=== PATIENT | female | born 1965 | race Caucasian/White ===

== ENCOUNTER 2017-07-14 10:23 | Emergency (ER) | payer OTHER, SELFPAY ==
[2017-07-14 11:06] VITALS: BP 138/81; PULSE 92; RESP 20; TEMP 36.8; O2SAT 97; BMI 23.7
--- NOTE | 2017-07-14 11:13 | HMH.EDUTC ---
[facility] [place] Disposition Clinical Impression: Spasm of muscle of lower back Disposition: Home, Self-Care Condition on Discharge: Good Instructions: DI for Low Back Pain Additional Instructions: Take muscles relaxers cautiously with toddler at home Prescriptions: Cyclobenzaprine HCl [Cyclobenzaprine 10mg Tab] 10 mg PO TID PRN 10 Days #30 tab PRN Reason: Muscle Spasm Lidocaine [Lidoderm 5% transdermal patch] 1 each TP Q24H 30 Days #30 adh..patch Referrals: Bruna Camacho APRN [Primary Care Provider] - Time of Disposition: : Medical Decision Making - Medical Records Medical records reviewed: Yes: I reviewed the patient's medical records. Vital Signs: 07/14/17 11:06 Temperature 98.2 F Temperature Source Temporal Artery Scan Pulse Rate [Left Brachial] 92 H Respiratory Rate 20 Blood Pressure [Left Arm] 138/81 Blood Pressure Mean [Left Arm] 100 Blood Pressure Source [Left Arm] Automatic Cuff Blood Pressure Position [Left Arm] Sitting 02 Sat by Pulse Oximetry 97 Oxygen Delivery Method Room Air Orders (Tests/Meds): ED MEDICATIONS Discontinued Medications Generic Name Dose Route Start Last Admin Trade Name Freq PRN Reason Stop Dose Admin Ketorolac Tromethamine 60 mg 07/14/17 11:10 07/14/17 11:12 Toradol 60mg/2ml Vial IM 07/14/17 11:11 60 mg ONCE ONE Administration Methylprednisolone Acetate 80 mg 07/14/17 11:10 07/14/17 11:12 Depo-Medrol 40mg/Ml Vial IM 07/14/17 11:11 80 mg ONCE ONE Administration - Jose Inquiry Pt receiving controlled substance: No [facility] [place] HPI - General Stated complaint: BACK PAIN Time Seen by Provider: 07/14/17 11:10 Mode of Arrival: Ambulatory Source of Information: Patient Limitations: No Limitations Description of Symptoms (Recalled from Triage Doc. by RN): BACK PAIN X2 DAYS. PT STATES THAT SHE NEEDS TO BE ABLE TO CARE FOR HER GRANDCHILD AND STEROIDS ARE ALL THAT HELP HER WHEN HER BACK PAIN FLARES UP HEENT Symptoms (Recalled from RN notes): No Resp Symptoms (Recalled from RN notes): No Skin Symptoms (Recalled from RN notes): No MS Symptoms (Recalled from RN notes): Yes (BACK PAIN) Functional Status (Recalled from RN notes): N/A - History of Present Illness Provider Complaint: Low back pain X 2 days after lifting a carton of copy paper. Pain across both sides of her low back but does not radiate down either leg. No fall. She has injured her back before and has Diclofenac and Prednisone, but is requesting shots to speed the process as she has custody of her 2 year old granddaughter. Onset (ago): day(s) (2) Location: back Radiation: non-radiation Severity: moderate Quality: aching, sharp Consistency: constant Relieving factors: cold therapy, immobilization, medication, rest Exacerbating factors: movement Associated symptoms: denies other symptoms Treatments prior to arrival: NSAID, cold therapy, heat therapy - Related Data Previous Rx's Medication Instructions Recorded Cyclobenzaprine HCl 10 mg PO TID PRN 10 Days #30 tab 07/14/17 [Cyclobenzaprine 10mg Tab] Lidocaine [Lidoderm 5% transdermal 1 each TP Q24H 30 Days #30 07/14/17 patch] adh..patch Allergies Allergy/AdvReac Type Severity Reaction Status Date / Time No Known Allergies Allergy Verified 07/14/17 11:06 - Worker's Comp Is this a Worker's Comp case?: No [facility] History I have reviewed the patient's past medical history: Yes Medical History: Denies:: Cancer, Diabetes Mellitus Type 1, Diabetes Mellitus Type 2, MRSA Amputation: No Fractures: No - Social History Smoking Status: Current every day smoker Tobacco Type: cigarettes Alcohol Intake: never - Psychiatric History Expresses thoughts of harming self/others: None Suicide Plan Description: No Plan ROS Obtained: Yes All systems reviewed & no additional complaints - Musculoskeletal Musculoskeletal: Reports back pain, Reports muscle aches, Denies numbness, Denies radiating pain into limb Physical Exa
--- NOTE | 2017-07-14 11:16 | ED_ITS ---
[facility] [place] Disposition Clinical Impression: Spasm of muscle of lower back Disposition: Home, Self-Care Condition on Discharge: Good Instructions: DI for Low Back Pain Additional Instructions: Take muscles relaxers cautiously with toddler at home Prescriptions: Cyclobenzaprine HCl [Cyclobenzaprine 10mg Tab] 10 mg PO TID PRN 10 Days #30 tab PRN Reason: Muscle Spasm Lidocaine [Lidoderm 5% transdermal patch] 1 each TP Q24H 30 Days #30 adh..patch Referrals: Bruna Camacho APRN [Primary Care Provider] - Time of Disposition: : Medical Decision Making - Medical Records Medical records reviewed: Yes: I reviewed the patient's medical records. Vital Signs: 07/14/17 11:06 Temperature 98.2 F Temperature Source Temporal Artery Scan Pulse Rate [Left Brachial] 92 H Respiratory Rate 20 Blood Pressure [Left Arm] 138/81 Blood Pressure Mean [Left Arm] 100 Blood Pressure Source [Left Arm] Automatic Cuff Blood Pressure Position [Left Arm] Sitting 02 Sat by Pulse Oximetry 97 Oxygen Delivery Method Room Air Orders (Tests/Meds): ED MEDICATIONS Discontinued Medications Generic Name Dose Route Start Last Admin Trade Name Freq PRN Reason Stop Dose Admin Ketorolac Tromethamine 60 mg 07/14/17 11:10 07/14/17 11:12 Toradol 60mg/2ml Vial IM 07/14/17 11:11 60 mg ONCE ONE Administration Methylprednisolone Acetate 80 mg 07/14/17 11:10 07/14/17 11:12 Depo-Medrol 40mg/Ml Vial IM 07/14/17 11:11 80 mg ONCE ONE Administration - Jose Inquiry Pt receiving controlled substance: No [facility] [place] HPI - General Stated complaint: BACK PAIN Time Seen by Provider: 07/14/17 11:10 Mode of Arrival: Ambulatory Source of Information: Patient Limitations: No Limitations Description of Symptoms (Recalled from Triage Doc. by RN): BACK PAIN X2 DAYS. PT STATES THAT SHE NEEDS TO BE ABLE TO CARE FOR HER GRANDCHILD AND STEROIDS ARE ALL THAT HELP HER WHEN HER BACK PAIN FLARES UP HEENT Symptoms (Recalled from RN notes): No Resp Symptoms (Recalled from RN notes): No Skin Symptoms (Recalled from RN notes): No MS Symptoms (Recalled from RN notes): Yes (BACK PAIN) Functional Status (Recalled from RN notes): N/A - History of Present Illness Provider Complaint: Low back pain X 2 days after lifting a carton of copy paper. Pain across both sides of her low back but does not radiate down either leg. No fall. She has injured her back before and has Diclofenac and Prednisone, but is requesting shots to speed the process as she has custody of her 2 year old granddaughter. Onset (ago): day(s) (2) Location: back Radiation: non-radiation Severity: moderate Quality: aching, sharp Consistency: constant Relieving factors: cold therapy, immobilization, medication, rest Exacerbating factors: movement Associated symptoms: denies other symptoms Treatments prior to arrival: NSAID, cold therapy, heat therapy - Related Data Previous Rx's Medication Instructions Recorded Cyclobenzaprine HCl 10 mg PO TID PRN 10 Days #30 tab 07/14/17 [Cyclobenzaprine 10mg Tab] Lidocaine [Lidoderm 5% transdermal 1 each TP Q24H 30 Days #30 07/14/17 patch] adh..patch Allergies Allergy/AdvReac Type Severity Reaction Status Date / Time No Known Allergies Allergy Verified 07/14/17 11:06
[2017-07-14 11:20] VITALS: BP 138/81; PULSE 92; RESP 20; TEMP 36.8; O2SAT 97
== END 2017-07-14 11:22 | disposition home or self-care (01) ==
PROVIDERS: Emergency Provider Physician Assistant; Family Provider Nurse Practitioner; PCP Nurse Practitioner
DX: M62.830 Muscle spasm of back (principal); F17.210 Nicotine dependence, cigarettes, uncomplicated
CPT/HCPCS: 96372; 99202; J1030

== ENCOUNTER → 2019-04-08 13:50 | Outpatient (CLI) | payer OTHER, SELFPAY ==
--- NOTE | 2019-04-08 13:54 | MM_ITS ---
PROCEDURE: MM DIG SCREENING MAMM BI W/CAD CLINICAL INDICATION: SCREENING There is no personal or family history of breast cancer COMPARISON: DMSB DIG MAMM-SCREEN PATRICIA from 01/10/2016 DMDXUAVR DIG MAMM-DX UNI ADD VIEWS-RT from 01/19/2016 BR US BREAST-RT COMPLETE W/AXILLA from 01/19/2016 TECHNIQUE: Standard CC and MLO images were obtained. R2 CAD reviewed. FINDINGS: Mild to moderate scattered fibroglandular densities are seen in both breasts. There are couple of benign-appearing microcalcifications left breast. There is no suspicious lesion and no suspicious microcalcifications. IMPRESSION: Fibrofatty parenchyma with no suspicious lesions seen BI-RAD Category: 2 Benign Finding(s) FOLLOW-UP: 1YR 1 Year Follow-up (A letter has been sent to the patient regarding results of the study.) Dictated by: Dr. Oleg Salomon MD 04/09/2019 12:[address] Oleg Salomon MD in [place] 04/09/2019 12:16
== END ==
PROVIDERS: PCP Family Medicine; Visit Provider Nurse Practitioner
DX: Z12.31 Encounter for screening mammogram for malignant neoplasm of breast (principal); R00.2 Palpitations; I49.8 Other specified cardiac arrhythmias
CPT/HCPCS: 77067; 93225; 93226

== ENCOUNTER → 2019-04-21 12:43 | Outpatient (CLI) | payer OTHER, SELFPAY ==
--- NOTE | 2019-04-21 | CA_ITS ---
APPROVED REPORT Exam: Exercise Treadmill Technologist: Mary Hernandez Ht: 5 ft 8 in Wt: 149 lbs BSA: 1.80 m2 HR: 79 bpm BP: 144/69 mmHg Indications: Fluttering heart, Palpitations Medical History Medications: Lisinopril,,,,, Mobic,,,,, ADVAIR,,,,, WELLBUTRIN,,,,, Ventolin,,,,, Valium,,,,, Estrodiol,,,,, Methocarbamol,,,,, Stress Test Details Test: Levi HR Resting HR: 88 bpm Max Heart Rate (APMHR): 168 bpm Max HR Achieved: 150 bpm Target HR (85% APMHR): 142 bpm % of APMHR: 89 Recovery HR: 101 bpm BP Resting BP: 144.0/69.0 mmHg Max BP: 196.0/78.0 mmHg Recovery BP: 156.0/61.0 mmHg ECG Clinical Exercise duration: 07:29 min Highest Stage Achieved: Exercise capacity: 10.1 METs Stress ECG Conclusion Resting ECG: Normal sinus rhythm, incomplete right bundle branch block. Patient exercised 7:29 on Levi Protocol. Test stopped due to shortness of air, fatigue. Symptoms: No chest pain. Arrhythmias/Ectopy: Occasional PAC. Rare PVC. ST-T Changes: Normal ST response to exercise. Conclusion: Normal GXT. GXT only (no imaging). Test Summary RECOVERY 02:00 0.0 0.0 118 . 195/ 88 . . REST . . . . . . . Standing REST 14:32 0.0 0.0 88 . 144/ 69 . . Stage 1 01:00 10.0 1.7 100 . . . . Stage 1 02:00 10.0 1.7 115 . . . . Stage 1 03:00 10.0 1.7 119 . 170/ 76 . . Stage 2 01:00 12.0 2.5 130 . . . . Stage 2 02:00 12.0 2.5 135 . . . . Stage 2 03:00 12.0 2.5 142 . 196/ 78 . . Stage 3 01:00 14.0 3.4 150 . . . . Stage 3 . . . . . . . Shortness of Breath Stage 3 01:29 14.0 3.4 150 . . . Stop exercise at 07:29 RECOVERY 01:00 0.0 0.0 133 . 195/ 88 . . RECOVERY 02:00 0.0 0.0 118 . 195/ 88 . . RECOVERY 03:00 0.0 0.0 113 . 176/ 66 . . RECOVERY 04:00 0.0 0.0 102 . 176/ 66 . . RECOVERY 05:00 0.0 0.0 102 . 156/ 61 . . RECOVERY 05:16 0.0 0.0 101 . 156/ 61 . . Electronically signed by : Alfonso Adler, 04/24/2019 16:41:50
--- NOTE | 2019-04-21 13:08 | CA_ITS ---
APPROVED REPORT EXAM: Comprehensive 2D, Doppler, and color-flow Echocardiogram Car Hopper: Lore Melara CRT Ht: 5 ft 8 in Wt: 119lbs BSA: 1.64 BP: 144/69 mmHg Indications: palpitations, fluttering 2D Dimensions LVOT 1.69 cm (M/F) 1.5-2.5 M-Mode Dimensions RVDd 2.45 cm (0.9-2.6) LVDd 4.30 cm (3.5-5.7) LVDs 2.93 cm (3.5-5.7) IVSd 0.97 cm (0.6-1.1) PWd 0.70 cm (0.6-1.1) EF (Teich) 60.30% FS 31.90% EDV (Teich) 83.10 mL ESV (Teich) 33.00 mL LV Diastology E/A Ratio 3.04 Mitral Valve MV A Velocity 89.00 (40-130 cm/s) Left Ventricle Left atrium is normal size, left ventricle is normal size, left ventricular wall thickness is upper limit of the normal, there is preserved left ventricular systolic function, visually estimated ejection fraction 55% with no regional wall motion abnormality, diastolic parameters are within normal range. Right Ventricle Right atrium and right ventricular normal size and contractility. Aortic Valve Aortic valve is grossly normal, there is no aortic stenosis aortic insufficiency. Mitral Valve Mitral valve is grossly normal, there is no mitral stenosis, there is trace mitral regurgitation. Tricuspid Valve Tricuspid valve is grossly normal, there is trace tricuspid regurgitation, tricuspid regurgitation jet velocity is inadequate for calculation of the right ventricular systolic pressure. Pulmonic Valve Pulmonic valve is poorly visualized, however there is pulmonic valve calcification noted, there is increased velocity seen in the pulmonary outflow tract generating a peak instantaneous gradient of 36 mmHg, raising the concerns for presence of moderate pulmonic stenosis, there is mild pulmonic insufficiency. Repeat a study with better Doppler technique is recommended for accurate assessment. Great Vessels Aortic root is normal size. Pericardium No significant pericardial effusion noted. Conclusion 1. Normal left ventricular size, preserved left ventricular systolic function, visually estimated ejection fraction 55% with no regional wall motion abnormality, diastolic parameters are within normal range. 2. Trace mitral and tricuspid regurgitation. 3. Increased velocity seen in the pulmonic outflow tract, with calcification of the pulmonic valve seen. 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 A repeat study with better Doppler technique is recommended for further evaluation and accurate assessment. 4. No significant pericardial effusion noted. Electronically signed by : Asher Egan, 04/22/2019 06:47:33
== END ==
PROVIDERS: PCP Nurse Practitioner; Visit Provider Nurse Practitioner
DX: I49.8 Other specified cardiac arrhythmias (principal); R00.2 Palpitations
CPT/HCPCS: 93017; 93306

== ENCOUNTER → 2020-01-01 11:00 | Outpatient (CLI) | payer OTHER, SELFPAY ==
[2020-01-02 12:27] LABS: HIV Screen 4th Generation wRfx Non Reactive (Non Reactive)
[2020-01-02 13:06] LABS: Rapid Plasma Reagin Ab Titer Non Reactive (NonRea<1:1)
[2020-01-02 13:07] LABS: Hepatitis B Surface Antigen Negative (Negative); Hepatitis C Antibody <0.1 s/co ratio (0.0-0.9)
== END ==
PROVIDERS: Visit Provider Obstetrics & Gynecology
DX: Z72.51 High risk heterosexual behavior (principal)
CPT/HCPCS: 36415; 86592; 86703; 87340; 87380; G0432

== ENCOUNTER → 2020-01-07 14:36 | Outpatient (CLI) | payer OTHER, SELFPAY | PROVIDERS: PCP Nurse Practitioner; Visit Provider Internal Medicine Cardiovascular Disease | DX: R07.9 Chest pain, unspecified (principal); R00.2 Palpitations; I10 Essential (primary) hypertension; J44.9 Chronic obstructive pulmonary disease, unspecified; J45.909 Unspecified asthma, uncomplicated; F17.200 Nicotine dependence, unspecified, uncomplicated | CPT/HCPCS: 93270 ==

== ENCOUNTER → 2020-01-11 07:50 | Outpatient (CLI) | payer OTHER, SELFPAY ==
--- NOTE | 2020-01-11 07:51 | CT_ITS ---
PROCEDURE: CT CHEST WO CON CLINICAL INDICATION: cp/tob use Chest pain, shortness of air COMPARISON: CR CXR CHEST(2 VIEWS-NOT PORTABLE) from 10/30/2015 TECHNIQUE: Axial images obtained with sagittal and coronal reformats. All CT scans at the facility use one or more dose reduction, viz: automated exposure control, ma/kV adjustment per patient size (including targeted exams where dose is matched to indication, i.e. head), or iterative reconstruction technique. FINDINGS: HEART AND MEDIASTINAL STRUCTURES: There are few small mediastinal and hilar lymph nodes. Heart size is normal. No obvious coronary artery calcifications. No mediastinal or hilar mass or adenopathy. LUNGS AND PLEURAL SPACES: There are scattered bilateral noncalcified pulmonary nodules which includes a 10 mm nodule in the right apex with at least 3 other smaller nodules in the right upper lobe one of which contains a central area of lucency suggesting early cavitation. In the left upper lobe there are several noncalcified nodules the largest of which is approximately 8 mm. At least 3 of the small nodules contain a central area of lucency suggesting early cavitation. There are changes of COPD with some mild centrilobular emphysema. No effusions are evident. BONY STRUCTURES: No acute bony abnormalities apparent. UPPER ABDOMEN: Unremarkable. ADDITIONAL FINDINGS: No other significant abnormalities. IMPRESSION: Multiple bilateral upper lobe noncalcified pulmonary nodules some of which contain early cavitation. Differential diagnosis would include inflammatory/infectious process such as septic emboli or metastatic disease. Dictated by: Milton Tan MD 01/12/2020 11:32 Milton Tan MD in [place] 01/12/2020 11:32
== END ==
PROVIDERS: PCP Family Medicine; Visit Provider Internal Medicine Cardiovascular Disease
DX: R07.9 Chest pain, unspecified (principal); R00.2 Palpitations; I10 Essential (primary) hypertension; J44.9 Chronic obstructive pulmonary disease, unspecified; J45.909 Unspecified asthma, uncomplicated; F17.200 Nicotine dependence, unspecified, uncomplicated
CPT/HCPCS: 71250

== ENCOUNTER → 2020-01-15 13:03 | Outpatient (CLI) | payer OTHER, SELFPAY | PROVIDERS: PCP Nurse Practitioner; Visit Provider Internal Medicine Cardiovascular Disease | DX: G47.33 Obstructive sleep apnea (adult) (pediatric) (principal); R07.9 Chest pain, unspecified; R00.2 Palpitations; J45.909 Unspecified asthma, uncomplicated; F17.200 Nicotine dependence, unspecified, uncomplicated | CPT/HCPCS: 95806 ==

== ENCOUNTER → 2020-01-18 11:56 | Outpatient (CLI) | payer OTHER, SELFPAY ==
[2020-01-20 15:28] LABS: Histoplasma Gal'mannan Ag Ur <0.5 (<0.5 ng/mL)
[2020-01-21 10:03] LABS: QuantiFERON-TB Gold Plus Negative (Negative)
[2020-01-21 22:20] LABS: Aspergillus flavus Negative (Neg:<1:1); Aspergillus fumigatus Negative (Neg:<1:1); Aspergillus niger Negative (Neg:<1:1); Blastomyces Antibody Negative (Neg:<1:1)
== END ==
PROVIDERS: Visit Provider Internal Medicine Pulmonary Disease
DX: J84.10 Pulmonary fibrosis, unspecified (principal)
CPT/HCPCS: 36415; 86480; 86606; 86612; 86698; 87070; 87116; 87186; 87205; 87206; 87385

== ENCOUNTER → 2020-02-02 09:44 | Outpatient (CLI) | payer OTHER, SELFPAY ==
[2020-02-02 16:50] LABS: Coronavirus 19 IgG Antibody Negative (Negative); Coronavirus 19 IgM Antibody Negative (Negative)
== END ==
PROVIDERS: Visit Provider Internal Medicine Pulmonary Disease
DX: Z01.818 Encounter for other preprocedural examination (principal); J18.9 Pneumonia, unspecified organism; J98.4 Other disorders of lung; R93.89 Abnormal findings on diagnostic imaging of other specified body structures
CPT/HCPCS: 36415; 86328

== ENCOUNTER 2020-02-03 08:10 | Day surgery (SDC) | payer OTHER, SELFPAY ==
[2020-02-01 14:47] VITALS: BMI 20.9
[2020-02-03] VITALS (8 sets, daily range): BP systolic 96–163; BP diastolic 55–96; PULSE 60–90; RESP 16–20; TEMP 36.4–36.7; O2SAT 97–100
--- NOTE | 2020-02-03 10:32 | HMH.BRONCH ---
- Procedure: Date: 02/03/20 Patient Date of :: 1965 Procedure Performed:: Proctoscopy with bronchoalveolar lavage Indications:: Cavitary lung lesions Performing Provider:: Sanjana Love MD Referring Provider:: Bruna Egan APRN Sedation:: Conscious sedation Procedure:: Bronchoscopy with bronchoalveolar lavage. Findings:: Clean diagnostic bronchoscopy was introduced through the right nares and advanced to the vocal cords and advanced into the main trachea. Airways were up to the subsegmental bronchi. Airways appeared normal, no obvious evidence of mucous plugging, blood clots, bleeding noted. Bronchoalveolar lavage was performed the left upper lobe apico-posterior segments with the patient has most of the cavitary lung lesions. Total of 60 cc of normal saline was injected with return of 30 cc. Lavage samples were sent for BAL differential, Gram stain and fungal and AFB stains along with reflex cultures and cyto-pathology. We will follow the patient in the clinic with the results. A total of 5 mg of Versed and 125 mcg of fentanyl was given for conscious sedation. Specimens:: Bronchoalveolar lavage Recommendations:: Follow-up in the clinic as previously scheduled to discuss the results Complications:: None Estimated blood obtained (mL): 0
== END 2020-02-03 10:32 | disposition home or self-care (01) ==
LOC: OUTP 08:11
PROVIDERS: PCP Family Medicine; Visit Provider Internal Medicine Pulmonary Disease
PROC: (CPT 31624; principal; 2020-02-03 09:30)
DX: R91.8 Other nonspecific abnormal finding of lung field (principal); J98.4 Other disorders of lung; R59.0 Localized enlarged lymph nodes; Z72.0 Tobacco use; E78.5 Hyperlipidemia, unspecified; I10 Essential (primary) hypertension; I37.1 Nonrheumatic pulmonary valve insufficiency; Z90.710 Acquired absence of both cervix and uterus; Z87.19 Personal history of other diseases of the digestive system; Z79.82 Long term (current) use of aspirin; Z79.899 Other long term (current) drug therapy; Z79.890 Hormone replacement therapy
CPT/HCPCS: 31624; 87070; 87102; 87116; 87205; 87206; 89051

== ENCOUNTER → 2020-02-13 12:12 | Outpatient (CLI) | payer OTHER, SELFPAY ==
[2020-02-13 14:22] LABS: Coronavirus 19 IgG Antibody Negative (Negative); Coronavirus 19 IgM Antibody Negative (Negative)
== END ==
PROVIDERS: Visit Provider Internal Medicine Gastroenterology
DX: Z01.89 Encounter for other specified special examinations (principal); Z12.11 Encounter for screening for malignant neoplasm of colon
CPT/HCPCS: 36415; 86328

== ENCOUNTER 2020-02-15 10:36 | Day surgery (SDC) | payer OTHER, SELFPAY ==
[2020-02-09 14:53] VITALS: BMI 20.9
[2020-02-15] VITALS (7 sets, daily range): BP systolic 94–139; BP diastolic 45–84; PULSE 63–71; RESP 16–18; TEMP 36.1–36.2; O2SAT 98–100
--- NOTE | 2020-02-15 12:28 | P.PN_ITS ---
[facility] Anesthesia Checklist - Patient Identification Patient Identification: Arm Band - Structural Data Admitted From: Home Planned Operative Procedure/s: colonoscopy Consent for Planned Operative Procedure(s) Verified: Yes Verified Documents: Surgical Consent, History and Physical - NPO Status Verified Time NPO: 00:00 - Additional verifications Anesthesia Reactions: No - Airway Assessment C-Spine Mobility Assessed: Yes (mp2) TMJ Mobility Assessed: Yes Dentition: Good Dentition - Neurological Assessment Level of Consciousness: Awake, Alert - Anesthesia Plan Anesthesia Risk discussed: Yes Anesthesia Plan: Verified ASA Class: III Anesthesia Type: MAC [facility] History I have reviewed the patient's past medical history: Yes Medical History: Reports:: Asthma, Chronic Obstructive Pulmonary Disease (COPD), Depression, Gastroesophageal Reflux Disease(GERD), Hyperlipidemia, Hypertension Denies:: Cancer, Diabetes Mellitus Type 1, Diabetes Mellitus Type 2, Internal Pacemaker, MRSA, Seizures *Have you ever received a pneumonia vaccine?: No *Have you received a flu vaccine this season?: No Other Medical History: Reports: Arthritis Anesthesia experience/problems:: nac Laterality Cases: Right: Arthroscopy Knee, Bilateral: Tonsillectomy Other Surgeries: Yes: Appendectomy, Hysterectomy-Total. No: Pacemaker Amputation: No Fractures: No - *Social History Last grade of school completed: High school graduate Smoking Status: Current every day smoker Tobacco Type: cigarettes # Packs/Day (cigarettes): 1 Alcohol Intake: current Alcohol Intake Frequency:: 0-2 drinks per day Substance Use Type: denies use *Occupational Status:: unemployed Housing: house Household Members: none *Travel in the last 8 weeks: None - Psychiatric History Pschychiatric History:: Reports:: Depression Family Hx:: Cancer, Diabetes, Thyroid Disorder
--- NOTE | 2020-02-15 13:57 | HMH.PROC ---
[facility] Procedure Note Procedure Note:: Colonoscopy Procedure Report: Colonoscopy with cold snare polypectomy Endoscopist: Ventura Hawley II, MD Referring physician: Keturah MARKHAM Date of Procedure: February 15, 2020 Equipment: Olympus 180 variable stiffness pediatric colonoscope Sedation: MAC sedation Indication: Mrs. Mendoza is a 55-year-old female who is here for initial screening colonoscopy. The patient is high risk screening due to strong family history. Her sister had colon cancer at the age of 57. The patient reports no abdominal pain, weight loss, change in her bowel habits or rectal bleeding. Procedure: Prior to the procedure, a history and physical exam was performed, and patient's medications and allergies were reviewed. The risks, benefits and alternatives of the sedation and procedure were discussed with the patient. All questions were answered and informed consent was obtained. The patient was brought to the procedure room. Patient identification and proposed procedure were verified by the physician and the nurse. The patient was placed in a left lateral decubitus position and the scope was passed under direct vision. Throughout the procedure, the patient's blood pressure, pulse, and oxygen saturations were monitored continuously. The colonoscopy was accomplished without difficulty. The patient tolerated the procedure well. Findings: On digital rectal examination there was normal rectal tone. There were no external hemorrhoids. The colonoscope was introduced through the anal canal to the rectum and advanced to the cecum. The ileocecal valve and appendiceal orifice were identified. The scope was advanced a short distance into the ileum which appeared grossly normal. The scope was then withdrawn into the colon. The cecum and ascending colon were normal. There were 2 colon polyps (transverse x1 (4 mm) and sigmoid x1 (4 mm)) which were both removed via cold snare polypectomy. There were scattered diverticuli throughout the descending and sigmoid colon (LEFT colon). The rectum itself was normal. Upon retroflexion within the rectum there were grade 1-2 internal hemorrhoids. The preparation was excellent throughout with [place] Preparation Score of 9. The cecal time was 12 minutes. Impression: 1. Diminutive colonic polyps x2 2. Left-sided diverticulosis 3. Grade 1-2 internal hemorrhoids Plan: I will follow up the polyp pathology and recommend repeat colonoscopy again in 5 years based upon the patient's family history and the present polyp histology. I would encourage fiber supplementation on a long-term daily maintenance basis.
== END 2020-02-15 14:53 | disposition home or self-care (01) ==
LOC: OUTP 10:38
PROVIDERS: PCP Nurse Practitioner; Visit Provider Internal Medicine Gastroenterology
PROC: 0DJD8ZZ Inspection of Lower Intestinal Tract, Via Natural or Artificial Opening Endoscopic (ICD-10-PCS; CPT 45378; principal; 2020-02-15 12:30)
DX: Z12.11 Encounter for screening for malignant neoplasm of colon (principal); Z80.0 Family history of malignant neoplasm of digestive organs; K63.5 Polyp of colon; K57.30 Diverticulosis of large intestine without perforation or abscess without bleeding; K64.0 First degree hemorrhoids; J44.9 Chronic obstructive pulmonary disease, unspecified; I10 Essential (primary) hypertension; K21.9 Gastro-esophageal reflux disease without esophagitis; E78.5 Hyperlipidemia, unspecified; F32.9 Major depressive disorder, single episode, unspecified; Z90.89 Acquired absence of other organs; Z87.39 Personal history of other diseases of the musculoskeletal system and connective tissue
CPT/HCPCS: 45385

== ENCOUNTER → 2020-04-22 07:50 | Outpatient (CLI) | payer OTHER, SELFPAY ==
--- NOTE | 2020-04-22 07:50 | CT_ITS ---
PROCEDURE: CT CHEST WO CON CLINICAL INDICATION: F/U LUNG NODULE, follow-up lung nodule COMPARISON: CT CT CHEST WO CON from 01/11/2020 TECHNIQUE: Axial images obtained with sagittal and coronal reformats. All CT scans at the facility use one or more dose reduction, viz: automated exposure control, ma/kV adjustment per patient size (including targeted exams where dose is matched to indication, i.e. head), or iterative reconstruction technique. FINDINGS: HEART AND MEDIASTINAL STRUCTURES: Unremarkable. LUNGS AND PLEURAL SPACES: There are numerous pulmonary nodules present. These have an upper lobe predominance. The largest nodules in the right apex and measures 1.5 x 1.5 cm. Previously this nodule measured 0.9 cm. There are other smaller nodules in the right upper lobe which are not significantly changed. There is 1 nodule in the right upper lobe posteriorly on image number 20 which measures 5 mm previously measuring 8 mm with a central focus of cavitation which is not apparent on today's image. In the left upper lobe there are several small cavitating nodules which are less than 1 cm. At least 1 nodule appears slightly smaller in the left upper lobe posteriorly. There was a small cavitating nodule in the left upper lobe posteriorly which measured 8 x 8 mm which is slightly smaller now measuring 8 x 4 mm. There is a new nodule in the right apex medially which measures 9 x 4 mm. There are no effusions. No lobar consolidation or collapse. Changes of COPD are present. Upper abdominal images are unremarkable. No acute bony findings. IMPRESSION: There are multiple bilateral pulmonary nodules with upper lobe predominance. These are mixed in nature with some being larger and some being smaller. This is described in detail above. The largest nodules in the right apex at 15 x 15 mm and has increased in size from 9 mm. Some of the nodules are also stable. The differential diagnosis remains the same. These nodules could be inflammatory/infectious or neoplastic or a combination there of. Dictated by: Milton Tan MD 04/25/2020 11:54 Milton Tan MD in [place] 04/25/2020 11:54
== END ==
PROVIDERS: PCP Nurse Practitioner; Visit Provider Internal Medicine Pulmonary Disease
DX: R91.1 Solitary pulmonary nodule (principal)
CPT/HCPCS: 71250

== ENCOUNTER → 2020-05-16 13:04 | Outpatient (CLI) | payer OTHER, SELFPAY ==
--- NOTE | 2020-05-16 13:07 | MM_ITS ---
PROCEDURE: MM DIG SCREENING MAMM BI W/CAD Digital Breast Tomosynthesis Included CLINICAL INDICATION: SCREENING There is no personal or family history of breast cancer. Patient currently is on estrogen. COMPARISON: MG DMSB DIG MAMM-SCREEN PATRICIA from 01/10/2016 MG,US BR US BREAST-RT COMPLETE W/AXILLA from 01/19/2016 MG DMDXUAVR DIG MAMM-DX UNI ADD VIEWS-RT from 01/19/2016 MG MM DIG SCREENING MAMM BI W/CAD from 04/08/2019 TECHNIQUE: Standard CC and MLO images and 3D Tomosynthesis was obtained. R2 CAD reviewed. FINDINGS: Scattered diffuse fibroglandular densities are seen in both breasts. There are couple of benign-appearing microcalcifications left breast. There is stable slightly asymmetric glandular elements right breast. There is a stable tiny benign-appearing nodular density outer quadrant left breast. There is no suspicious lesion and no suspicious microcalcifications. IMPRESSION: Fibrofatty parenchyma with no suspicious lesions seen BI-RAD Category: 2 Benign Finding(s) FOLLOW-UP: 1YR 1 Year Follow-up (A letter has been sent to the patient regarding results of the study.) Dictated by: Dr. Oleg Salomon MD 05/19/2020 09:19 Dr. Oleg Salomon MD in [place] 05/19/2020 09:19
== END ==
PROVIDERS: PCP Family Medicine; Visit Provider Nurse Practitioner
DX: Z12.31 Encounter for screening mammogram for malignant neoplasm of breast (principal)
CPT/HCPCS: 77063; 77067

== ENCOUNTER → 2020-07-14 10:52 | Outpatient (CLI) | payer OTHER, SELFPAY ==
--- NOTE | 2020-07-14 | XR_ITS ---
PROCEDURE: XR CHEST 2V CLINICAL HISTORY: SOB, HX OF LUNG BIOPSY COMPARISON: CR CXR CHEST(2 VIEWS-NOT PORTABLE) from 10/30/[address] CHEST WO CON from 04/22/2020 FINDINGS: The cardiomediastinal silhouette and pulmonary vascularity are within normal limits. The patient has bilateral pulmonary nodules as seen on a recent chest CT. These nodules are mostly below limits of resolution on the radiograph. There is some vague nodularity in the right apex which may correspond to the dominant right apical nodule. There is a tiny right apical pneumothorax. No acute bony abnormalities. IMPRESSION: There is a tiny right apical pneumothorax. This measures approximately 3 mm in with at the lung apex. No change right apical nodule. Dictated by: Milton Tan MD 07/14/2020 14:52 Milton Tan MD in [place] 07/14/2020 14:52
--- NOTE | 2020-07-14 | XR_ITS ---
PROCEDURE: XR THORACIC SPINE 3V CLINICAL INDICATION: ACUTE MIDLINE THORACIC BACK PAIN COMPARISON: No exams were available for comparison FINDINGS: There is normal alignment. No fracture or dislocation evident. No lytic or blastic change. There is mild degenerative disc disease in the midthoracic spine and minimal thoracic curvature convex left IMPRESSION: Mild degenerative changes, no acute finding Dictated by: Milton Tan MD 07/14/2020 13:51 Milton Tan MD in [place] 07/14/2020 13:51
== END ==
PROVIDERS: PCP Nurse Practitioner Family; Visit Provider Nurse Practitioner Family
DX: R06.02 Shortness of breath (principal); M54.6 Pain in thoracic spine; Z98.890 Other specified postprocedural states
CPT/HCPCS: 71046; 72072

== ENCOUNTER → 2020-08-16 14:42 | Outpatient (CLI) | payer OTHER, SELFPAY ==
--- NOTE | 2020-08-16 14:49 | XR_ITS ---
PROCEDURE: XR LUMBAR SPINE MIN 4V CLINICAL INDICATION: LOW BACK PAIN,DDD COMPARISON: No exams were available for comparison FINDINGS: No acute fractures. Bone density is within normal limits. Minor degenerative changes of the lumbar spine. There are is bilateral L5 spondylolysis. No anterolisthesis of the L5 over S1 is noted measuring 1 centimeter. Vascular calcification is noted. Paravertebral soft tissues are unremarkable. 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 Dictated by: Shavon Plascencia 08/16/2020 16:39 Shavon Plascencia in [place] 08/16/2020 16:39
== END ==
PROVIDERS: PCP Family Medicine; Visit Provider Nurse Practitioner Family
DX: M54.41 Lumbago with sciatica, right side (principal); M51.36 Other intervertebral disc degeneration, lumbar region
CPT/HCPCS: 72110

== ENCOUNTER → 2020-08-25 07:59 | Outpatient (CLI) | payer OTHER, SELFPAY ==
--- NOTE | 2020-08-25 08:04 | MR_ITS ---
PROCEDURE: MR LUMBAR SPINE WO CON CLINICAL INDICATION: ACUTE BILATERAL LOW BACK PAIN Rt sided lbp. Right sided buttox pain. No recent injury. Prior x-ray 08-16-20. COMPARISON: CR XR LUMBAR SPINE MIN 4V from 08/16/2020 TECHNIQUE: Standard multiplanar multiecho sequences are performed without contrast. 3-D MIP and myelographic images are also rendered and reviewed FINDINGS: The spinal cord ends at the T12-L1 level. There is good alignment through L5. T11-T12: Small right paracentral disc herniation with inferior extrusion of the disc by proximally 12 mm. The disc does not directly impinge upon the cord however, there is some minimal effacement of the cord anteriorly on the right.. Degenerative disc disease is present at this level. T12-L1: Unremarkable. L1-L2: Unremarkable. L2-L3: Unremarkable. L3-L4: Mild degenerative disc disease with mild bulging disc. There is facet and ligamentum hypertrophy with mild bilateral lateral recess and foraminal narrowing. L4-5: Facet and ligamentum hypertrophy with mild bilateral foraminal narrowing. L5-S1: 6 mm anterolisthesis of L5 severe facet hypertrophic changes are present with bulging disc and severe bilateral foraminal narrowing. IMPRESSION: 1. Small right paracentral disc herniation with inferior extrusion of the disc by proximally 12 mm. There is mild effacement of the cord anteriorly on the right 2. L3-L4: Mild degenerative disc disease with mild bulging disc. There is facet and ligamentum hypertrophy with mild bilateral lateral recess and foraminal narrowing. 3. L4-5: Facet and ligamentum hypertrophy with mild bilateral foraminal narrowing. 4. L5-S1: 6 mm anterolisthesis of L5 severe facet hypertrophic changes are present with bulging disc and severe bilateral foraminal narrowing Dictated by: Milton Tan MD 08/26/2020 11:00 Milton Tan MD in [place] 08/26/2020 11:00
== END ==
PROVIDERS: PCP Family Medicine; Visit Provider Nurse Practitioner Family
DX: M54.41 Lumbago with sciatica, right side (principal); M51.36 Other intervertebral disc degeneration, lumbar region
CPT/HCPCS: 72148; 76376

== ENCOUNTER 2020-12-04 12:06 | Emergency (ER) | payer OTHER, SELFPAY ==
--- NOTE | 2020-12-04 13:26 | HMH.EDUTC ---
[facility] [place] Clinical Impression: Acute radial nerve palsy of right upper extremity Disposition: Home, Self-Care Condition on Discharge: Good Instructions: Radial Tunnel Syndrome Additional Instructions: Wear the splint. Take the medication as directed. Follow up with your primary care doctor. Follow up with orthopedics (Dr. Plascencia). I put in a referral but you will need to call and make an appointment. GO TO THE ER FOR ANY WORSENING SYMPTOMS OR CONCERNS Prescriptions: methylPREDNISolone [Medrol] 4 mg PO DIRECTED 6 Days #21 [email or web address] Transmission Status: Received by Subtext #[id number] Referrals: Alfonso Whiteside MD [Primary Care Provider] - Forms: Work/School Release Time of Disposition: 13:57 Medical Decision Making - Medical Records Medical records reviewed: No: I reviewed the patient's medical records. - Jose Inquiry Pt receiving controlled substance: No Vital Signs: 12/04/20 13:29 12/04/20 13:58 Temperature 97.8 F 98 F Temperature Source Oral Pulse Rate 87 Pulse Rate [Right] 87 Respiratory Rate 18 16 Blood Pressure 109/72 L Blood Pressure [Right Arm] 106/74 L Blood Pressure Mean [Right Arm] 84 Blood Pressure Source [Right Arm] Automatic Cuff Blood Pressure Position [Right Arm] Sitting 02 Sat by Pulse Oximetry 100 [facility] [place] - General Stated complaint: numbness, tingling rt hand Time Seen by Provider: 12/04/20 13:26 - History of Present Illness Provider Complaint: She states that yesterday while drinking alcohol she fell asleep on her front porch with her right arm and hand in a funny position propping up her head. When she woke up later, her hand felt like it was asleep. She also has had weakness raising her hand up. Her symptoms have continued since then. She denies any other complaints or issues. - Related Data Home Medications Medication Instructions Recorded Confirmed buPROPion HCL [Bupropion HCl Sr] 150 mg PO DAILY 12/25/18 10/12/20 diazePAM [Valium 10mg tablet] 10 mg PO DAILY 12/25/18 10/12/20 estradioL [Estradiol] 2 mg PO DAILY 12/25/18 10/12/20 methocarbamoL [Methocarbamol 500mg 500 mg PO Q6HP PRN 12/25/18 10/12/20 Tablet] ascorbate calcium (vitamin C) 500 500 mg PO DAILY 01/01/20 10/12/20 mg tablet meloxicam 15 mg tablet 15 mg PO DAILY 01/01/20 10/12/20 cholecalciferol (vitamin D3) 75 75 mcg PO .twice weekly tab 01/07/20 10/12/20 mcg (3,000 unit) tablet Aspirin [Low Dose Aspirin EC] 81 mg PO DAILY 02/01/20 10/12/20 cyclobenzaprine 10 mg tablet 10 mg PO Q8H PRN tab 08/18/20 10/12/20 gabapentin 100 mg capsule 100 mg PO HS cap 08/18/20 10/12/20 budesonide-formoterol HFA 80 2 puff INHALATION BID 10/12/20 10/12/20 mcg-4.5 mcg/actuation aerosol inhaler Previous Rx's Medication Instructions Recorded lisinopril 5 mg tablet 5 mg PO DAILY #90 tab 08/18/20 metoprolol succinate 25 mg 25 mg PO DAILY #30 tab 10/04/20 tablet,extended release 24 hr omeprazole 40 mg capsule,delayed 40 mg PO DAILY #30 cap 10/04/20 release metronidazole 500 mg tablet 500 mg PO BID 5 Days #10 tab 11/25/20 methylPREDNISolone [Medrol] 4 mg PO DIRECTED 6 Days #21 12/04/20 tab.[email or web address] Allergies Allergy/AdvReac Type Severity Reaction Status Date / Time No Known Allergies Allergy Verified 12/04/20 13:32 [facility] History - Hepatitis A Screen Attestation statement:: This patient has been screened for Hepatitis A risk factors. I have reviewed the patient's past medical history: Yes Medical History: Reports:: Asthma, Chronic Obstructive Pulmonary Disease (COPD), Depression, Gastroesophageal Reflux Disease(GERD), Hyperlipidemia, Hypertension Denies:: Cancer, Diabetes Mellitus Type 1, Diabetes Mellitus Type 2, Internal Pacemaker, MRSA, Seizures Other Medical History: Reports: Arthritis Laterality Cases: Right: Arthroscopy Knee, Bilateral: Tonsillectomy Other Surgeries: Yes: Appendectomy, Colonoscopy, Dilation and Curettage, Hysterectom
[2020-12-04 13:27] VITALS: BMI 20.8
--- NOTE | 2020-12-04 13:28 | XR_ITS ---
PROCEDURE INFORMATION: Exam: XR Right Hand Exam date and time: 12/04/2020 1:28 PM Age: 55 years old Clinical indication: Numbness; Hand; Right; Additional info: Loss of function TECHNIQUE: Imaging protocol: XR Right hand. Views: 3 or more views. COMPARISON: [facility]-RT-3 VIEWS 06/01/2015 8:54 AM FINDINGS: Bones/joints: The ulnar is bowed posteriorly relative to the wrist. Chronic subluxation or congenital variation could have this appearance. Follow-up based on clinical findings suggested. No acute fracture dislocation or discrete bony destruction. Soft tissues: Normal. IMPRESSION: The ulnar is bowed posteriorly relative to the wrist. Chronic subluxation or congenital variation could have this appearance. Follow-up based on clinical findings suggested.
--- NOTE | 2020-12-04 13:28 | XR_ITS ---
PROCEDURE INFORMATION: Exam: XR Right Wrist Exam date and time: 12/04/2020 1:28 PM Age: 55 years old Clinical indication: Numbness; Wrist; Right; Additional info: Loss of function TECHNIQUE: Imaging protocol: XR Right wrist. Views: 3 or more views. COMPARISON: [facility]-RT-3 VIEWS 06/01/2015 8:54 AM FINDINGS: Bones/joints: Normal. Soft tissues: Normal. IMPRESSION: No acute findings.
[2020-12-04 13:29] VITALS: BP 106/74; PULSE 87; RESP 18; TEMP 36.6; O2SAT 100; BMI 20.8
[2020-12-04 13:58] VITALS: BP 109/72; PULSE 87; RESP 16; TEMP 36.6
== END 2020-12-04 14:05 | disposition home or self-care (01) ==
PROVIDERS: Emergency Provider Nurse Practitioner Family; PCP Family Medicine
DX: G56.31 Lesion of radial nerve, right upper limb (principal); I10 Essential (primary) hypertension; K21.9 Gastro-esophageal reflux disease without esophagitis; E78.5 Hyperlipidemia, unspecified; F33.1 Major depressive disorder, recurrent, moderate; J44.9 Chronic obstructive pulmonary disease, unspecified; F17.210 Nicotine dependence, cigarettes, uncomplicated; Z87.891 Personal history of nicotine dependence
CPT/HCPCS: 73110; 73130; 99202; G0463

== ENCOUNTER 2020-12-21 12:50 | Outpatient (RCR) | payer OTHER, SELFPAY | END 2020-12-21 14:00 | disposition home or self-care (01) | LOC: OT 12:50 | PROVIDERS: PCP Family Medicine; Visit Provider Orthopaedic Surgery | DX: G56.31 Lesion of radial nerve, right upper limb (principal) | CPT/HCPCS: 97760 ==

== ENCOUNTER → 2021-06-14 12:46 | Outpatient (CLI) | payer OTHER, SELFPAY | PROVIDERS: PCP Pain Medicine Interventional Pain Medicine; Visit Provider Nurse Practitioner | DX: Z20.822 Contact with and (suspected) exposure to COVID-19 (principal) | CPT/HCPCS: C9803; U0003; U0005 ==

== ENCOUNTER → 2022-02-19 08:05 | Outpatient (CLI) | payer OTHER, SELFPAY ==
--- NOTE | 2022-02-19 08:09 | CA_ITS ---
APPROVED REPORT EXAM: Comprehensive 2D, Doppler, and color-flow Echocardiogram Radiologist Chief Of Breast Imaging: Vianey Hudson RT(R) Ht: 5 ft 8 in Wt: 154lbs BSA: 1.83 BP: 129/46 mmHg Indications: smoker, edema, HTN, possible moderate pulmonic stenosis seen on echo 04/21/19. limited visualization of PV on today's echo due to lung intereference. Multiple attempts made. 2D Dimensions LVOT 2.08 cm (M/F) 1.5-2.5 LA Volume 24.30 mL LA Volume Index 13.30 mL/m2 (M/F) 16-34 M-Mode Dimensions RVDd 2.58 cm (0.9-2.6) LA Diam 2.99 cm (1.9-4.0) LVDd 3.55 cm (3.5-5.7) Ao Diam 2.83 cm (2.0-3.7) LVDs 2.72 cm (3.5-5.7) IVSd 0.87 cm (0.6-1.1) PWd 0.74 cm (0.6-1.1) EF (Teich) 47.70% FS 23.40% EDV (Teich) 52.60 mL ESV (Teich) 27.50 mL LV Diastology E Decel Time 170.00 (160-240 msec) E/A Ratio 0.83 MED E' 7.80 (< 7 cm/sec) E'/MED E' Ratio 8.96 (>14) LAT E' 11.00 (<10 cm/sec) E/LAT E' Ratio 6.35 (>14) Mitral Valve MV E Max Jourdan. 70.00 (40-130 cm/s) MV A Velocity 85.00 (40-130 cm/s) E/A Ratio 0.83 MV Decel. Time 170.00 (160-240 ms) MV PHT 50.00 ms Pulmonary Valve PV Peak Velocity 116.00 (50-150 cm/s) Left Ventricle Left atrium is mildly enlarged, left ventricle is normal size, mild concentric left ventricular hypertrophy, estimated ejection fraction 55% with no regional wall motion abnormality, grade 1 diastolic dysfunction seen without tissue Doppler evidence of raise left atrial pressure. Right Ventricle Right atrium and right ventricle are normal size and contractility. Aortic Valve Aortic valve is minimally thickened and fibrosed, there is no aortic stenosis or aortic insufficiency. Mitral Valve Mitral valve is grossly normal, there is trace mitral regurgitation. Tricuspid Valve Tricuspid valve grossly normal, there is trace tricuspid regurgitation, tricuspid regurgitation jet velocity is inadequate for calculation of the right ventricular systolic pressure. Pulmonic Valve Pulmonic valve is poorly visualized in this study, pulmonic outflow velocity is are not particularly increased in this study. There is mild pulmonic insufficiency seen. Great Vessels Aortic root is normal size. Inferior vena cava is poorly visualized. Pericardium No significant pericardial effusion noted. Conclusion 1. Mildly enlarged left atrium, normal left ventricular size, mild concentric left ventricular hypertrophy, estimated ejection fraction 55% with no regional wall motion abnormality, grade 1 diastolic dysfunction seen without tissue Doppler evidence of raise left atrial pressure. 2. Trace mitral and tricuspid regurgitation. 3. Pulmonic valve is not well visualized in the study, pulmonic valve flow velocity is not particularly increased, there is mild pulmonic insufficiency. 4. No significant pericardial effusion noted. 5. Inferior vena cava is poorly visualized. Electronically signed by : Asher Egan MD 02/20/2022 06:36:30
[2022-02-19 10:01] LABS: Basophils # 0.1 K/mm3 (0-0.2); Basophils % 1.3 % (0.1-2.0); Eosinophils # 0.1 K/mm3 (0.0-0.4); Eosinophils % 1.7 % (0.1-12.0); Hematocrit 40.3 % (37.0-47.0); Hemoglobin 12.8 g/dL (12.2-16.2); Lymphocytes # 2.2 K/mm3 (0.7-4.5); Lymphocytes % 36.3 % (10-50); Mean Corpuscular HGB Conc 31.8 g/dL (31.8-35.4); Mean Corpuscular Hemoglobin 31.5 pg (27.0-31.2); Mean Corpuscular Volume 99.1 fl (81-99); Mean Platelet Volume 8.9 fl (7.4-10.4); Monocytes # 0.4 K/mm3 (0.1-1.0); Monocytes % 6.2 % (1.7-9.3); Neutrophils # 3.3 K/mm3 (1.8-7.8); Neutrophils % 54.6 % (37.0-80.0); Platelet Count 278 K/mm3 (142-424); Red Blood Count 4.07 M/mm3 (4.20-5.40); Red Cell Distribution Width 13.6 % (11.5-17.5); White Blood Count 6.1 K/mm3 (4.8-10.8)
[2022-02-19 10:26] LABS: Alanine Aminotransferase 25 U/L (12-78); Albumin Level 4.1 g/dl (3.5-5.0); Alkaline Phosphatase 100 U/L (38-126); Anion Gap 13.5 mEq/L (5-15); Aspartate Amino Transferase 39 U/L (14-36); Bilirubin,Indirect 0.4 mg/dL (0.0-0.9); Bilirubin,Total 0.4 mg/dl (0.2-1.3); Bilirubin,Unconjugated 0.5 mg/dL (0.0-1.1); Blood Urea Nitrogen 19 mg/dl (7-17); Calcium 9.2 mg/dl (8.4-10.2); Carbon Dioxide 27 mmol/L (22.0-30.0); Chloride 101 mmol/L (98-107); Cholesterol 260 mg/dl (140-200); Estimated Glomerular Filt Rate 52 ml/min (>60); GFR (African American) 62 ML/MIN (>60); Glucose 86 mg/dl (74-100); HDL Cholesterol 88 mg/dl (40-60); Potassium 4.5 mmoL/L (3.5-5.1); Sodium 137 mmol/L (136-145); Triglycerides 74 mg/dl (30-150); VLDL Cholesterol 15 mg/dL (0-40)
[2022-02-19 10:44] LABS: Free T4 (Free Thyroxine) 1.24 ng/dl (0.78-2.19)
== END ==
PROVIDERS: PCP Pain Medicine Interventional Pain Medicine; Visit Provider Nurse Practitioner Family
DX: I37.0 Nonrheumatic pulmonary valve stenosis (principal); I11.9 Hypertensive heart disease without heart failure; E11.9 Type 2 diabetes mellitus without complications; F17.200 Nicotine dependence, unspecified, uncomplicated
CPT/HCPCS: 36415; 80048; 80061; 80076; 84439; 84443; 85025; 93306

== ENCOUNTER 2022-04-16 08:03 | Emergency (ER) | payer OTHER, SELFPAY ==
--- NOTE | 2022-04-16 08:26 | EXP.UTC ---
Discharge Plan Disposition Patient Disposition: Home, Self-Care Condition: Good Prescriptions Prescriptions: New azithromycin [Zithromax] 250 mg tablet 250 mg PO UD DOSE PK Qty: 6 0RF Rx Instructions: Take two (2) tablets today, then one (1) tablet days #2 thru #5 benzonatate [benzonatate] 100 mg capsule 100 mg PO TIDP PRN (Reason: Cough) Qty: 30 0RF methylprednisolone 4 mg Tablets,Dose Pack 4 mg PO DIRECTED Qty: 21 0RF No Action gabapentin 100 mg capsule 100 mg PO HS cyclobenzaprine 10 mg tablet 10 mg PO Q8H PRN albuterol sulfate [Ventolin HFA] 90 mcg/actuation HFA aerosol inhaler 2 puff INHALATION Q4-6H PRN meloxicam 15 mg tablet 15 mg PO DAILY ergocalciferol (vitamin D2) [Vitamin D2] 1,250 mcg (50,000 unit) capsule 1,250 mcg PO WEEKLY lisinopril 5 mg tablet 10 mg PO DAILY Linzess 145 mcg capsule 145 mcg PO DAILY metoprolol succinate 25 mg tablet extended release 24 hr See Rx Instructions .ROUTE .COMPLEX Qty: 30 5RF Dose Instruction: TAKE 1 TABLET BY MOUTH ONCE DAILY FOR HIGH BLOOD PRESSURE Rx Instructions: TAKE 1 TABLET BY MOUTH ONCE DAILY FOR HIGH BLOOD PRESSURE omeprazole 40 mg capsule,delayed release(DR/EC) See Rx Instructions .ROUTE .COMPLEX Qty: 30 5RF Dose Instruction: TAKE 1 CAPSULE BY MOUTH ONCE DAILY FOR GERD Rx Instructions: TAKE 1 CAPSULE BY MOUTH ONCE DAILY FOR GERD atorvastatin 40 mg tablet 40 mg PO DAILY Qty: 90 3RF methocarbamol 500 MG tablet 500 mg PO Q6HP PRN (Reason: PAIN) estradiol 2 MG tablet 2 mg PO DAILY diazepam 10 MG tablet 10 mg PO DAILY bupropion HCl (smoking deter) 150 MG tablet extended release 12 hr 150 mg PO DAILY Referrals Follow up/Referrals: Yoshi Chan MD [Primary Care Provider] - See instructions Activity Restrictions/Add. Instructions Additional Instructions/Restrictions: Drink plenty of fluids. Take tylenol or ibuprofen for pain or fever. Take the medications as directed. Follow up with your regular doctor. GO TO THE ER FOR ANY WORSENING SYMPTOMS Clinical Impressions Clinical Impression: Bronchitis, Sinusitis, Viral syndrome Stand Alone Forms Stand Alone Forms: Work/School Release Instructions Patient Instructions: Sinusitis, Acute Bronchitis, DI for Sinusitis, DI for Acute Bronchitis, DI for Viral Syndrome [place] [facility] [place] General Stated complaint: Congestion,Fever Time Seen by Provider: 04/16/22 08:26 History of Present Illness Provider Complaint: She states that for the past 3 days she has had worsening chest and sinus congestion, fever and she has felt bad. She denies any vomiting or diarrhea. Related Data Home Medications Medication Instructions Recorded Confirmed bupropion HCl (smoking deter) 150 150 mg PO DAILY Depression 12/25/18 04/10/22 mg tablet,12 hr sustained-release(smoking deterrent) diazepam 10 mg tablet 10 mg PO DAILY Anxiety 12/25/18 04/10/22 estradiol 2 mg tablet 2 mg PO DAILY Supplement 12/25/18 04/10/22 methocarbamol 500 mg tablet 500 mg PO Q6HP PRN PAIN 12/25/18 04/10/22 cyclobenzaprine 10 mg tablet 10 mg PO Q8H PRN 08/18/20 04/10/22 gabapentin 100 mg capsule 100 mg PO HS 08/18/20 04/10/22 albuterol sulfate 90 mcg/actuation 2 puff inhalation Q4-6H PRN 02/16/21 04/10/22 aerosol inhaler (Ventolin HFA) ergocalciferol (vitamin D2) 1,250 1,250 mcg PO WEEKLY 02/16/21 04/10/22 mcg (50,000 unit) capsule (Vitamin D2) meloxicam 15 mg tablet 15 mg PO DAILY 02/16/21 04/10/22 lisinopril 5 mg tablet 10 mg PO DAILY 02/13/22 04/10/22 linaclotide 145 mcg capsule 145 mcg PO DAILY 04/10/22 04/10/22 (Linzess) Previous Rx's Medication Instructions Recorded metoprolol succinate 25 mg See Rx Instructions .Route 06/16/21 tablet,extended release 24 hr .COMPLEX #30 tabs omeprazole 40 mg capsule,delayed See Rx Instructions .Route 06/16/21 relea
[2022-04-16 08:34] LABS: UTC Strep Screen (Rapid) Negative (Negative)
[2022-04-16 08:35] LABS: UTC Influenza A Antigen Negative (Negative); UTC Influenza B Antigen Negative (Negative)
[2022-04-16 08:41] VITALS: BP 134/99; PULSE 129; RESP 17; TEMP 37.3; O2SAT 99; BMI 23.2
[2022-04-16 08:50] VITALS: BP 134/99; PULSE 129; RESP 17; TEMP 37.3
[2022-04-16 09:16] LABS: Adenovirus,PCR Not Detected (NotDetected); Bordetella Pertussis Not Detected (NotDetected); Chlamydophila Pneumoniae, PCR Not Detected (NotDetected); Coronavirus 19, PCR Not Detected (NotDetected); Coronavirus 229E Not Detected (NotDetected); Coronavirus NL63 Not Detected (NotDetected); Coronavirus OC43 Not Detected (NotDetected); Coronovirus HKU1,PCR Not Detected (NotDetected); Human Metapneumovirus Not Detected (NotDetected); Influenza A, PCR Not Detected (NotDetected); Influenza AH1, 2009 Not Detected (NotDetected); Influenza AH1, PCR Not Detected (NotDetected); Influenza AH3,PCR Not Detected (NotDetected); Influenza B, PCR Not Detected (NotDetected); Mycoplasma Pneumoniae, PCR Not Detected (NotDetected); Parainfluenza 1, PCR Not Detected (NotDetected); Parainfluenza 2, PCR Not Detected (NotDetected); Parainfluenza 3, PCR Not Detected (NotDetected); Parainfluenza 4, PCR Not Detected (NotDetected); Respiratory Syncytial Virus Not Detected (NotDetected); Rhinovirus/Enterovirus Not Detected (NotDetected)
== END 2022-04-16 08:51 | disposition home or self-care (01) ==
PROVIDERS: Emergency Provider Nurse Practitioner Family; PCP Family Medicine
DX: J40 Bronchitis, not specified as acute or chronic (principal); J32.9 Chronic sinusitis, unspecified; B34.9 Viral infection, unspecified
CPT/HCPCS: 87581; 87632; 87798; 87804; 87880; 99212; C9803; G0463; U0003; U0005

== ENCOUNTER → 2022-05-01 08:43 | Outpatient (CLI) | payer OTHER, SELFPAY ==
--- NOTE | 2022-05-01 08:50 | XR_ITS ---
FINAL REPORT CLINICAL HISTORY: COUGH, pneumonia , patient states 3 weeks not getting better, smoker FINDINGS: Two views of the chest were obtained. The heart size and pulmonary vascularity are within normal limits. The mediastinum is normal. No acute pulmonary abnormality is identified. There is no pneumothorax. The bony thorax is intact. IMPRESSION: No active cardiopulmonary disease. Reviewed, Interpreted and Dictated by Neil Mayen III, MD Transcribed by Toya Gillis Authenticated and [facility]
== END ==
PROVIDERS: PCP Family Medicine; Visit Provider Family Medicine
DX: R05.9 Cough, unspecified (principal)
CPT/HCPCS: 71046

== ENCOUNTER 2023-03-27 17:43 | Emergency (ER) | payer OTHER, SELFPAY ==
[2023-03-27 18:30] VITALS: BP 138/53; PULSE 85; RESP 18; TEMP 36.6; O2SAT 99; BMI 24.5
--- NOTE | 2023-03-27 18:30 | EXP.UTC ---
Discharge Plan Disposition Patient Disposition: Home, Self-Care Condition: Good Prescriptions Prescriptions: New phenazopyridine [Pyridium] 200 mg tablet 200 mg PO Q8H 2 Days Qty: 6 0RF nitrofurantoin monohyd/m-cryst [Macrobid] 100 mg Capsule 100 mg PO BID Qty: 10 0RF Rx Instructions: must administer with a meal/food No Action gabapentin 100 mg capsule 100 mg PO HS cyclobenzaprine 10 mg tablet 10 mg PO Q8H PRN (Reason: Pain (Scale Score 1-3)) albuterol sulfate [Ventolin HFA] 90 mcg/actuation HFA aerosol inhaler 2 puff INHALATION Q4-6H PRN (Reason: Wheezing) meloxicam 15 mg tablet 15 mg PO DAILY ergocalciferol (vitamin D2) [Vitamin D2] 1,250 mcg (50,000 unit) capsule 1,250 mcg PO WEEKLY lisinopril 5 mg tablet 10 mg PO DAILY atorvastatin 40 mg tablet 40 mg PO DAILY metoprolol succinate 25 mg tablet extended release 24 hr See Rx Instructions .ROUTE .COMPLEX Qty: 30 5RF Dose Instruction: TAKE 1 TABLET BY MOUTH ONCE DAILY FOR HIGH BLOOD PRESSURE Rx Instructions: TAKE 1 TABLET BY MOUTH ONCE DAILY FOR HIGH BLOOD PRESSURE omeprazole 40 mg capsule,delayed release(DR/EC) See Rx Instructions .ROUTE .COMPLEX Qty: 30 5RF Dose Instruction: TAKE 1 CAPSULE BY MOUTH ONCE DAILY FOR GERD Rx Instructions: TAKE 1 CAPSULE BY MOUTH ONCE DAILY FOR GERD methocarbamol 500 MG tablet 500 mg PO Q6HP PRN (Reason: PAIN) estradiol 2 MG tablet 2 mg PO DAILY diazepam 10 MG tablet 10 mg PO DAILY bupropion HCl (smoking deter) 150 MG tablet extended release 12 hr 150 mg PO DAILY Referrals Follow up/Referrals: Yoshi hCan MD [Primary Care Provider] - See instructions Activity Restrictions/Add. Instructions Additional Instructions/Restrictions: Drink plenty of fluids. Take tylenol or ibuprofen for pain or fever. Take the medications as directed. Follow up with your regular doctor. GO TO THE ER FOR ANY WORSENING SYMPTOMS The pyridium will make your urine turn orange, this is an expected side effect. It will stain your clothes if it comes into contact with them. We will culture the urine. That will tell what bacteria is causing your infection and which antibiotics will treat it best. Sometimes the first antibiotic we prescribe turns out to not work against different bacteria. So, make sure you follow up within 3 days if you are not getting better. Clinical Impressions Clinical Impression: UTI (urinary tract infection) Instructions Patient Instructions: DI for Urinary Tract Infection (UTI) Discharge ED Provider: Khoa Baer [facility] – [place] HPI General Stated complaint: possible uti Time Seen by Provider: 03/27/23 18:29 History of Present Illness Provider Complaint: She states that for the past 3 days she has had worsening dysuria and urinary frequency. Related Data Home Medications Medication Instructions Recorded Confirmed bupropion HCl (smoking deter) 150 150 mg PO DAILY Depression 12/25/18 03/27/23 mg tablet,12 hr sustained-release(smoking deterrent) diazepam 10 mg tablet 10 mg PO DAILY Anxiety 12/25/18 03/27/23 estradiol 2 mg tablet 2 mg PO DAILY Supplement 12/25/18 03/27/23 methocarbamol 500 mg tablet 500 mg PO Q6HP PRN PAIN 12/25/18 03/27/23 cyclobenzaprine 10 mg tablet 10 mg PO Q8H PRN Pain (Scale Score 08/18/20 03/27/23 1-3) gabapentin 100 mg capsule 100 mg PO HS 08/18/20 03/27/23 albuterol sulfate 90 mcg/actuation 2 puff inhalation Q4-6H PRN 02/16/21 03/27/23 aerosol inhaler (Ventolin HFA) Wheezing ergocalciferol (vitamin D2) 1,250 1,250 mcg PO WEEKLY 02/16/21 03/27/23 mcg (50,000 unit) capsule (Vitamin D2) meloxicam 15 mg tablet 15 mg PO DAILY 02/16/21 03/27/23 lisinopril 5 mg tablet 10 mg PO DAILY 02/13/22 03/27/23 atorvastatin 40 mg tablet 40 mg PO DAILY 02/06/23 03/27/23 Previous Rx's Medication Instructions Recorded metoprolol succinate 25 mg See Rx Instruc
[2023-03-27 18:43] LABS: Apearance,Urine Clear (Clear); Color,Urine Yellow (Yellow); Protein,Urine Trace (Negative); Specific Gravity, Urine 1.025 (1.005-1.030)
[2023-03-27 18:44] LABS: Bilirubin,Urine Negative (Negative); Blood, Urine Trace (Negative); Glucose,Urine (UA) Negative (Negative); Ketones,Urine Negative (Negative); UTC Leukocyte Esterase,Urine Negative (Negative); UTC Nitrate,Urine Negative (Negative); Urobilinogen,Urine 0.2 EU/dl (0.2)
[2023-03-27 19:18] VITALS: BP 138/53; PULSE 85; RESP 18; TEMP 36.6; O2SAT 99
== END 2023-03-27 19:18 | disposition home or self-care (01) ==
PROVIDERS: Emergency Provider Nurse Practitioner Family; PCP Family Medicine
DX: N39.0 Urinary tract infection, site not specified (principal); B95.2 Enterococcus as the cause of diseases classified elsewhere; F17.210 Nicotine dependence, cigarettes, uncomplicated; I10 Essential (primary) hypertension; E78.5 Hyperlipidemia, unspecified; I37.0 Nonrheumatic pulmonary valve stenosis
CPT/HCPCS: 81003; 87086; 99212; 99214; G0463

== ENCOUNTER 2023-05-06 17:33 | Emergency (ER) | payer OTHER, SELFPAY ==
[2023-05-06 17:50] VITALS: BP 115/88; PULSE 78; RESP 18; TEMP 37; O2SAT 97; BMI 24.7
[2023-05-06 18:01] LABS: Apearance,Urine Cloudy (Clear); Color,Urine Dark Yellow (Yellow)
[2023-05-06 18:02] LABS: Bilirubin,Urine 1+ (Negative); Blood, Urine 3+ (Negative); Glucose,Urine (UA) Negative (Negative); Ketones,Urine 15 (Negative); Protein,Urine 3+ (Negative); UTC Leukocyte Esterase,Urine 1+ (Negative); UTC Nitrate,Urine Negative (Negative); Urobilinogen,Urine 1 EU/dl (0.2)
--- NOTE | 2023-05-06 18:08 | EXP.UTC ---
Discharge Plan Disposition Patient Disposition: Home, Self-Care Condition: Good Prescriptions Prescriptions: New phenazopyridine [Pyridium] 200 mg tablet 200 mg PO TID 2 Days Qty: 6 0RF cefdinir 300 mg capsule 300 mg PO BID Qty: 20 0RF No Action gabapentin 100 mg capsule 100 mg PO HS cyclobenzaprine 10 mg tablet 10 mg PO Q8H PRN (Reason: Pain (Scale Score 1-3)) albuterol sulfate [Ventolin HFA] 90 mcg/actuation HFA aerosol inhaler 2 puff INHALATION Q4-6H PRN (Reason: Wheezing) meloxicam 15 mg tablet 15 mg PO DAILY ergocalciferol (vitamin D2) [Vitamin D2] 1,250 mcg (50,000 unit) capsule 1,250 mcg PO WEEKLY lisinopril 5 mg tablet 10 mg PO DAILY atorvastatin 40 mg tablet 40 mg PO DAILY lidocaine 5 % adhesive patch,medicated 1 patch topical DAILY bupropion HCl 150 mg tablet sustained-release 12 hr 150 mg PO BID metoprolol succinate 25 mg tablet extended release 24 hr See Rx Instructions .ROUTE .COMPLEX Qty: 30 5RF Dose Instruction: TAKE 1 TABLET BY MOUTH ONCE DAILY FOR HIGH BLOOD PRESSURE Rx Instructions: TAKE 1 TABLET BY MOUTH ONCE DAILY FOR HIGH BLOOD PRESSURE omeprazole 40 mg capsule,delayed release(DR/EC) See Rx Instructions .ROUTE .COMPLEX Qty: 30 5RF Dose Instruction: TAKE 1 CAPSULE BY MOUTH ONCE DAILY FOR GERD Rx Instructions: TAKE 1 CAPSULE BY MOUTH ONCE DAILY FOR GERD estradiol 2 MG tablet 2 mg PO DAILY diazepam 10 MG tablet 10 mg PO DAILY Referrals Follow up/Referrals: Yoshi Chan MD [Primary Care Provider] - See instructions Activity Restrictions/Add. Instructions Additional Instructions/Restrictions: *Increase fluids. Water not Soda or Tea *Start Cefdinir tomorrow you got a shot of Rocephin in the [facility] today and be sure to take as ordered for the FULL length of time although you should start to see improvement over the next 48 hours *Pyridium as needed Remember this medication will turn your urine . This is normal but it will stain what ever it gets on *You should not use Pyridium for more than 48 hours. If so , follow up with your primary physician to review urine culture and ensure that antibiotic is adequate for infection *Be SURE to follow up anytime for new or worsening symptoms with your family doctor. AND in 48 hours for urine culture results with your family doctor, if you do not have a doctor then you may call back to the [facility] for urine culture results and further treatment. We do recommend that you choose and establish care with a Primary Care Physician. ?AND follow up with them ?in 10-14 days to repeat UA to ensure infection is resolved and blood no longer present *Be sure to let your PCP know that we sent urine cultures from the [facility] so they can follow up to ensure that you area the on the correct antibiotic Call your doctor office and make appointment for 48 hours (2 days from today) ?to follow up and get the results of your urine culture and further treatment Clinical Impressions Clinical Impression: UTI (urinary tract infection) Qualifiers: Urinary tract infection type: site unspecified Hematuria presence: with hematuria Qualified Code(s): N39.0 - Urinary tract infection, site not specified Instructions Patient Instructions: Urinary Tract Infection, DI for Urinary Tract Infection (UTI) Discharge ED Provider: Benita Cabezas [facility] HPI General Stated complaint: blood in urine Mode of Arrival: Ambulatory Source of Information: Patient Limitations: No Limitations Time Seen by Provider: 05/06/23 18:08 Description of Symptoms (Recalled from Triage Doc. by RN): blood in urine, pelvic pressure, and uti symptoms. HEENT Symptoms (Recalled from RN notes): No Resp Symptoms (Recalled from RN notes): No Skin Symptoms (Recalled from RN notes): No MS Symptoms (Recalled from RN notes): No Functional Status (Recalled from RN notes): n/a History of Present Illness Provider Adry
[2023-05-06 20:06] VITALS: BP 115/88; PULSE 78; RESP 18; TEMP 37; O2SAT 97
== END 2023-05-06 20:06 | disposition home or self-care (01) ==
PROVIDERS: Emergency Provider Nurse Practitioner; PCP Family Medicine
DX: N39.0 Urinary tract infection, site not specified (principal); B96.89 Other specified bacterial agents as the cause of diseases classified elsewhere; R31.9 Hematuria, unspecified; R10.30 Lower abdominal pain, unspecified; F17.210 Nicotine dependence, cigarettes, uncomplicated; I10 Essential (primary) hypertension; E78.5 Hyperlipidemia, unspecified
CPT/HCPCS: 81003; 87086; 96360; 96372; 99212; 99214; G0463; J0696

== ENCOUNTER 2023-09-03 10:32 | Outpatient (CLI) | payer BC, SELFPAY ==
--- NOTE | 2023-09-03 10:38 | XR_ITS ---
FINAL REPORT CLINICAL HISTORY: CERVICAL PAIN COMPARISON: None FINDINGS: CERVICAL SPINE: There is moderate degenerative narrowing of the L5-6 disc space level, with minimal posterior spondylolisthesis of C5 on C6. No prevertebral soft tissue swelling is noted. Mild C5-6 neural foraminal narrowing is present. IMPRESSION: C5-6 degenerative change as described. Reviewed, Interpreted and Dictated by Jude Flannery MD Transcribed by Martha Heredia Authenticated and [facility]
== END 2023-09-03 23:59 | disposition home or self-care (01) ==
PROVIDERS: PCP Family Medicine; Visit Provider Family Medicine
DX: M54.2 Cervicalgia (principal)
CPT/HCPCS: 72050

== ENCOUNTER 2023-12-12 08:59 | Outpatient (CLI) | payer BC, SELFPAY ==
--- NOTE | 2023-12-12 09:08 | XR_ITS ---
FINAL REPORT CLINICAL HISTORY: Pain in top of left foot. FINDINGS: Three views show no evidence of acute displaced fracture or dislocation of the visualized bony architecture. There are mild degenerative changes of the 1st metatarsophalangeal joint. IMPRESSION: Mild degenerative changes. Reviewed, Interpreted and Dictated by Brian Stallworth MD Transcribed by Janie Davis Authenticated and [facility]
== END 2023-12-12 23:59 | disposition home or self-care (01) ==
LOC: RAD 09:04
PROVIDERS: PCP Family Medicine; Visit Provider Nurse Practitioner
DX: M79.672 Pain in left foot (principal); M19.90 Unspecified osteoarthritis, unspecified site
CPT/HCPCS: 73630

== ENCOUNTER 2024-02-10 09:26 | Outpatient (CLI) | payer BC, SELFPAY | END 2024-02-10 23:59 | disposition home or self-care (01) | LOC: RT 09:28 | PROVIDERS: PCP Family Medicine; Visit Provider Nurse Practitioner Family | DX: R00.2 Palpitations (principal); R07.89 Other chest pain | CPT/HCPCS: 93270 ==

== ENCOUNTER 2024-02-19 08:06 | Outpatient (CLI) | payer BC, SELFPAY ==
--- NOTE | 2024-02-19 08:06 | MM_ITS ---
PROCEDURE INFORMATION: Exam: MG Bilateral Screening 3D Mammography Exam date and time: 02/19/2024 8:09 AM Age: 59 years old Clinical indication: Screening exam. TECHNIQUE: Imaging protocol: Bilateral Screening tomosynthesis and 2D mammography including computer-aided detection (CAD) when performed. Per the technologist the best possible images were obtained as the patient had difficulty with positioning. The exam is degraded by lack of posteroinferior tissue on both MLO views. COMPARISON: 1. MG MM DIG SCREENING MAMM BI W/CAD 05/16/2020 1:05 PM 2. MG MM DIG SCREENING MAMM BI W/CAD 04/08/2019 2:12 PM FINDINGS: MAMMOGRAPHY: Breast composition: There are scattered areas of fibroglandular density. Mass: 0.5 cm mass upper-outer right breast middle depth. Architectural distortion: None. Calcifications: No suspicious calcifications. Asymmetric density: None. Skin thickening: None. Axillary adenopathy: None. IMPRESSION: Subcentimeter right breast mass.Recommend right breast diagnostic mammogram including spot compression views of the right breast in the CC and MLO projections, a full 90 degree lateral view, and possible right breast ultrasound for further evaluation. ASSESSMENT: BI-RADS Category 0: Incomplete- Need Additional Imaging Evaluation.
== END 2024-02-19 23:59 | disposition home or self-care (01) ==
LOC: RAD 08:06
PROVIDERS: PCP Family Medicine; Visit Provider Obstetrics & Gynecology
DX: Z12.31 Encounter for screening mammogram for malignant neoplasm of breast (principal)
CPT/HCPCS: 77063; 77067

== ENCOUNTER 2024-02-24 07:40 | Outpatient (CLI) | payer BC, SELFPAY ==
--- NOTE | 2024-02-24 07:43 | CA_ITS ---
APPROVED REPORT EXAM: Comprehensive 2D, Doppler, and color-flow Echocardiogram Core Piler: Lore Melara CRT Ht: 5 ft 9 in Wt: 174lbs BSA: 1.95 BP: 134/66 mmHg Indications: Chest Pain, Palpitations, Peripheral Edema, Hyperlipidemia, Hypertension/HDD, smoker 2D Dimensions LA Volume 26.80 mL LA Volume Index 13.50 mL/m2 (M/F) 16-34 M-Mode Dimensions RVDd 2.88 cm (0.9-2.6) LA Diam 2.89 cm (1.9-4.0) LVDd 4.31 cm (3.5-5.7) LVDs 3.13 cm (3.5-5.7) IVSd 0.97 cm (0.6-1.1) PWd 0.78 cm (0.6-1.1) EF (Teich) 53.50% FS 27.40% EDV (Teich) 83.50 mL TAPSE 2.22 (<1.7) ESV (Teich) 38.80 mL LV Diastology E Decel Time 140 (160-240 msec) E/A Ratio 1.00 MED A' 11.90 cm/s LAT A' 11.30 cm/s Aortic Valve AO Peak GR. 4.90 mmHg Mitral Valve MV E Max Jourdan. 81.0 (40-130 cm/s) MV A Velocity 81.0 (40-130 cm/s) E/A Ratio 1.00 MV PHT 41.0 ms Pulmonary Valve PV Peak Velocity 277.0 (50-150 cm/s) Tricuspid Valve TR P. Velocity 310.00 cm/s RAP Estimate 10.00 mmHg RVSP 48.50 mmHg Left Ventricle The left ventricle is normal size. The left ventricular systolic function is normal. The left ventricular ejection fraction is within the normal range. There is increased LV wall thickness. There is normal LV segmental wall motion. The left ventricular diastolic function is normal. LVEF is 55%. Right Ventricle The right ventricle is normal size. The right ventricular systolic function is normal. Atria The left atrium size is normal. The right atrium size is normal. There is no Doppler evidence of interatrial shunt. Aortic Valve The aortic valve is mildly thickened. There is no aortic valvular stenosis. Trace aortic regurgitation. Mitral Valve The mitral valve leaflets are mildly thickened. No evidence of mitral valve stenosis. Trace mitral regurgitation. Tricuspid Valve The tricuspid valve leaflets are thin and pliable. Mild tricuspid regurgitation. RVSP is 25-30 mmHg. Pulmonic Valve The pulmonary valve is normal in structure. Trace pulmonic regurgitation. Great Vessels The aortic root is normal in size. The ascending aorta is normal in size. IVC is normal in size and collapses >50% with inspiration. Pericardium There is no pericardial effusion. There is an incidental finding of a subcentimetric anechoic echodensity in the liver, most consistent with small hepatic cyst. Other Information Study Quality: Fair Conclusion Normal biventricular systolic function. Mild TR. RVSP 30-35 mmHg. There is an incidental finding of a subcentimetric anechoic echodensity of the liver, most consistent with small hepatic cyst. Electronically signed by : Martha Padgett MD 02/26/2024 00:14:11
== END 2024-02-24 23:59 | disposition home or self-care (01) ==
LOC: RT 07:41
PROVIDERS: PCP Family Medicine; Visit Provider Nurse Practitioner Family
DX: R07.89 Other chest pain (principal); R00.2 Palpitations
CPT/HCPCS: 93306

== ENCOUNTER 2024-03-05 12:47 | Outpatient (CLI) | payer BC, SELFPAY ==
--- NOTE | 2024-03-05 | US_ITS ---
PROCEDURE INFORMATION: Exam: US Right Breast, Complete MG Right Diagnostic Breast Tomosynthesis Exam date and time: 03/05/2024 2:13 PM Age: 59 years old Clinical indication: Callback from screening for right breast mass. TECHNIQUE: Imaging protocol: Complete ultrasound of all four quadrants of the right breast and the retroareolar regions, including ultrasound of the axilla when performed. Right Diagnostic tomosynthesis and 2D mammography including computer-aided detection (CAD) when performed. Unilateral or bilateral exam. COMPARISON: MG MM DIG MAMM DX UNILAT RT CAD 03/05/2024 1:26 PM FINDINGS: MAMMOGRAPHY: Breast composition: There are scattered areas of fibroglandular density. Breast mammogram findings: Right breast spot compression tomosynthesis views were obtained. There is a persistent low-density circumscribed mass in the right breast towards the 7 o'clock 3 cm from the nipple.Elsewhere, there are no suspicious masses or calcifications in the partially visualized breast. No abnormal lymph nodes in the partially visualized axilla. ULTRASOUND: Breast ultrasound findings: Right breast ultrasound: At 3 o'clock 7 cm from nipple there is a benign simple cyst measuring 0.4 x 0.5 cm corresponding the mammographic finding question. Incidentally noted benign simple cyst at 11 o'clock 4 cm from nipple measuring 0.5 x 0.6 cm. No solid or suspicious masses. No abnormal lymph nodes in the axilla. IMPRESSION: Benign simple cysts in the right breast.There are no findings suspicious for malignancy. Annual mammographic screening is recommended unless otherwise clinically indicated. ASSESSMENT: BI-RADS Category 2: Benign.
--- NOTE | 2024-03-05 | CA_ITS ---
APPROVED REPORT Exam: Exercise Treadmill Technologist: Joanne Nava, Ht: 5 ft 9 in Wt: 174 lbs BSA: 1.95 m2 HR: 76 bpm BP: 126/73 mmHg Rhythm: NSR Medical History Medications: Lisinopril,,,,, Omeprazole,,,,, Metoprolol,,,,, Gabapentin,,,,, Diazepam,,,,, Atorvastatin,,,,, BuPROPION,,,,, Cyclobenzaprine,,,,, Methocarbamol,,,,, Fureosemide,,,,, Cardiac Risk Factors: HTN, Hyperlipidemia, Smoking Stress Test Details Test: Denny HR Resting HR: 85 bpm Max Heart Rate (APMHR): 163 bpm Max HR Achieved: 178 bpm Target HR (85% APMHR): 139 bpm % of APMHR: 109 Recovery HR: 119 bpm BP Resting BP: 130.0/77.0 mmHg Max BP: 207.0/87.0 mmHg Recovery BP: 207.0/87.0 mmHg ECG Resting ECG: NSR Stress EC.[address] depression Arrhythmia: None Clinical Exercise duration: 07:02 min Highest Stage Achieved: Exercise capacity: 10.1 METs Stress ECG Conclusion Pt exercised a total of 7:02 minutes on denny protocol. Pt had no CP. No arrhythmias noted. 0.[address] depression Conclusion: Normal GXT. GXT only. If clinical symptoms persist, further evaluation with alternative imaging modality is recommended in the setting of age and risk factors (i.e. intermediate likelihood of CAD) Test Summary REST . . . . . . . Sitting REST . . . . . . . Standing REST 03:29 0.0 0.0 85 . 130/ 77 . . Stage 1 01:00 10.0 1.7 95 . . . . Stage 1 02:00 10.0 1.7 105 . . . . Stage 1 03:00 10.0 1.7 110 . 156/ 80 . . Stage 2 01:00 12.0 2.5 119 . . . . Stage 2 02:00 12.0 2.5 127 . . . . Stage 2 03:00 12.0 2.5 136 . 188/ 82 . . Stage 3 01:00 14.0 3.4 142 . . . . Stage 3 01:02 14.0 3.4 142 . . . Stop exercise at 07:02 RECOVERY 01:00 0.0 0.0 125 . . . . RECOVERY 02:00 0.0 0.0 111 . 207/ 87 . . RECOVERY 03:00 0.0 0.0 102 . 207/ 87 . . RECOVERY 04:00 0.0 0.0 95 . 189/ 79 . . RECOVERY 05:00 0.0 0.0 92 . 155/ 74 . . RECOVERY 05:26 0.0 0.0 91 . 155/ 74 . . Electronically signed by : Martha Padgett MD 03/12/2024 13:09:15
== END 2024-03-05 23:59 | disposition home or self-care (01) ==
LOC: RT 12:47
PROVIDERS: PCP Family Medicine; Visit Provider Obstetrics & Gynecology
DX: R07.89 Other chest pain (principal); R92.8 Other abnormal and inconclusive findings on diagnostic imaging of breast
CPT/HCPCS: 76641; 77061; 77065; 93017; 93018; G0279

== ENCOUNTER 2024-09-17 09:16 | Outpatient (CLI) | payer BC, SELFPAY ==
--- OUTSIDE RECORDS SUMMARY | 2024-09-17 09:20 | XMS_ITS | Clinical Summary ---
Author Organization [facility] Address [address] [place] [address] Phone Care Team Providers Care Chainstitch Tunnel Elastic Operator Name Role Phone Alen JIN, Kolby Belle Unavailable [phone] Keturah Camacho APRN Unavailable [phone] MARQUES JIN, SAL Primary Care Provider [phone] Reason for Visit and Chief Complaint Epidural Steroid Injection Problems Includes: Problems addressed during this encounter and other active Problems All Visits Onset Date Resolved Date Provider Condition S tatus Neck Pain 09/16/2023 Joo Gillis PA-C Active Last Documented On 4 8:36AM ; [facility], [facility] Pain in the Lumbar Spine 10/10/2018 Kolby talley MD Active Last Documented On 9 8:42AM ; [facility] Plan of Treatment No Plan of Treatment Recorded Assessments Includes: Assessments from this encounter No Assessments Recorded Medical Equipment - Implanted Devices Includes: Current Devices No Medical Equipment Recorded Medications Includes: Medications discussed during this encounter and other current Medications Current Medications (continue as prescribed) Atorvastatin Calcium 40 MG Oral Tablet 07/29/2023 Pr ovider: Diagnosis: Last Documented On 4 8:54AM By Denice Stevenson ; [facility], [facility] Metoprolol Succinate ER 25 M G Oral Tablet, extended-release 24 hour 07/29/2023 Provider: STORM Bashir Diagnosis: Last Documented On 4 8:54AM By Denice Stevenson ; [facility], [facility] Omeprazole 40 MG Oral Capsule, delayed-release 024 Provider: STORM POWELL MD Diagnosis: Last Documented On 4 8:54AM By Denice Stevenson ; [facility], [facility] Cyclobenzaprine HCl 10 MG Oral Tablet 07/23/2023 Pro vider: STORM POWELL MD Diagnosis: Last Documented On 4 8:54AM By Denice Stevenson ; [facility], [facility] Furosemide 20 MG Oral Tablet 07/18/2023 Provider: STORM POWELL MD Diagnosis: Last Documented On 4 8:54AM By Denice Stevenson ; [facility] Gabapentin 100 MG Oral Capsule, conventional 4 Provider: STORM POWELL MD Diagnosis: Last Documented On 4 8:54AM By Denice Stevenson ; [facility], [facility] Vitamin D (Ergocalciferol) 1 .25 MG (37399 UT) Oral Capsule, conventional 07/16/2023 Provider: STORM POWELL MD Diagnosis: Last Documented On 4 8:54AM By Denice Stevenson ; [facility], [facility] Albuterol Sulfate HFA 108 (9 0 Base) MCG/ACT Inhalation Aerosol, solution 07/15/2023 Provider: STORM CASSIDY MD Diagnosis: Last Documented On 4 8:54AM By Denice Stevenson ; [facility], [facility] Budesonide-Formoterol Fumara te 80-4.5 MCG/ACT Inhalation Aerosol 07/15/2023 Provider: STORM POWELL MD Diagnosis: Last Documented On 4 8:54AM By Denice Stevenson ; [facility], [facility] Estradiol 2 MG Oral Tablet 07/15/2023 Provider: Yoshi POWELL MD Diagnosis: Last Documented On 4 8:54AM By Denice Stevenson ; [facility] Lisinopril 10 MG Oral Tablet 07/15/2023 Provider: JJ LUKE Diagnosis: Last Documented On 4 8:54AM By Denice Stevenson ; [facility], [facility] Breyna 80-4.5 MCG/ACT Inhalation Aerosol 06/18/2023 Provider: STORM POWELL MD Diagnosis: Last Documented On 4 8:54AM By Denice Stevenson ; [facility] Methocarbamol 500 MG Oral Tablet 06/16/2023 Provider : STORM POWELL MD Diagnosis: Last Documented On 4 10:07AM By Denice Stevenson ; [facility] Phenazopyridine HCl 200 MG Oral Tablet 05/06/2023 Pr ovider: Diagnosis: Last Documented On 4 10:07AM By Denice Stevenson ; [facility] Medications Administered Includes: Administered Medications from this encounter No Administered Medications Recorded Results Includes: Results discussed during this encounter No Results Recorded For Specified Dates History of Present Illness Includes: History of Present Illness from this encounter No History of Present Illness Recorded Social History No Social History Recorded - Smoking Status Unknown Medical History Includes: Medical History addressed during this encounter No Medical History Recorded Family History Includes: Family History addressed during this encounter No Family History Recorded Review of Systems Includes: Review of Systems from this encounter No Review of Systems Recorded Mental Status Includes: Mental Status from this encounter No Mental Status Recorded Functional Status Includes: Functional Status from this encounter No Functional Status Recorded Physical Exam Includes: Physical Exam from this encounter No Physical Exam Recorded Allergies Includes: Active Allergies No Known Allergies Encounters Encounter Provider Location Date Check-In Time Check-Out Time Diagnosis Epidural Steroid Injection Tej Iniguez CRNA 08/29/2023 4:00PM 11:59PM Insurance Includes: Active Insurance Policies Plan Name Member ID Group # Subscriber Relationship Effect davina Dates - [facility] [id number] Daniela Torres Clinical Notes Includes: Clinical Notes from this encounter No Clinical Notes Recorded
--- OUTSIDE RECORDS SUMMARY | 2024-09-17 09:20 | XMS_ITS ---
Care Plan - [facility], [facility] Created on: September 17, 2024 Daniela Mendoza : 1965 Sex: Female Author Organization [facility] Address [address] [place] [address] Phone Care Team Providers Care Mortgage Loan Processor Name Role Phone Jessica JIN, [facility] [phone]
--- OUTSIDE RECORDS SUMMARY | 2024-09-17 09:20 | XMS_ITS | Clinical Summary ---
Author Organization [facility] , [facility] Address [address] [place] [address] Phone Care Team Providers Care Wire Technician Name Role Phone Alen JIN, Kolby Belle Unavailable [phone] Emir Ray APRN Unavailable [phone] MARQUES JIN, SAL Primary Care Provider [phone] Reason for Visit and Chief Complaint The Chief Complaint is: Neck pain Problems Includes: Problems addressed during this encounter and other active Problems Current Visit Onset Date Resolved Date Provider Conditio n Status Neck Pain 09/16/2023 Joo Gillis PA-C Active Last Documented On 4 8:36AM ; [facility], [facility] Past Visits Onset Date Resolved Date Provider Condition Status Pain in the Lumbar Spine 10/10/2018 Kolby talley MD Active Last Documented On 9 8:42AM ; [facility] Plan of Treatment Patient was seen by myself Joo Gillis PA-C. Patient will follow up on October 29 and we will recheck her lower back that point in time where we try an epidural injection and we are going to add some physical therapy for her neck at this point in time for postural strengthening and stretching - Last Documented On 09/25/2023 1:19PM ; [facility] Pending Tests Order Diagnosis Results Due Ordering P rovider Therapy - Physical Therapy Cervical Other dorsalgia 08/19 02/10 Joo Gillis PA-C Last Documented On 4 1:19PM ; [facility] Instructions to patient Intervention and counseling on cessation of tobacco use Last Documented On 4 4:27PM ; [facility] Lose weight Last Documented On 4 4:26PM ; [facility], [facility] Assessments Includes: Assessments from this encounter Findings - Overweight - Last Documented On 09/25/2023 1:19PM ; [facility] C5-C6 DDD - Last Documented On 09/25/2023 1:19PM ; [facility], [facility] Instructions Includes: Instructions from this encounter Instructions to patient Intervention and counseling on cessation of tobacco use Last Documented On 4 4:27PM ; [facility], [facility] Lose weight Last Documented On 4 4:26PM ; [facility] Medical Equipment - Implanted Devices Includes: Current Devices No Medical Equipment Recorded Medications Includes: Medications discussed during this encounter and other current Medications Current Medications (continue as prescribed) Atorvastatin Calcium 40 MG Oral Tablet 07/29/2023 Pr ovider: Diagnosis: Last Documented On 4 8:54AM By Denice Stevenson ; [facility] Metoprolol Succinate ER 25 M G Oral Tablet, extended-release 24 hour 07/29/2023 Provider: STORM Bashir Diagnosis: Last Documented On 4 8:54AM By Denice Stevenson ; [facility] Omeprazole 40 MG Oral Capsule, delayed-release 024 Provider: STORM POWELL MD Diagnosis: Last Documented On 4 8:54AM By Denice Stevenson ; [facility] Cyclobenzaprine HCl 10 MG Oral Tablet 07/23/2023 Pro vider: STORM POWELL MD Diagnosis: Last Documented On 4 8:54AM By Denice Stevenson ; [facility] Furosemide 20 MG Oral Tablet 07/18/2023 Provider: STORM POWELL MD Diagnosis: Last Documented On 4 8:54AM By Denice Stevenson ; [facility] Gabapentin 100 MG Oral Capsule, conventional 4 Provider: STORM POWELL MD Diagnosis: Last Documented On 4 8:54AM By Denice Stevenson ; [facility] Vitamin D (Ergocalciferol) 1 .25 MG (86277 UT) Oral Capsule, conventional 07/16/2023 Provider: STORM POWELL MD Diagnosis: Last Documented On 4 8:54AM By Denice Stevenson ; [facility], [facility] Albuterol Sulfate HFA 108 (9 0 Base) MCG/ACT Inhalation Aerosol, solution 07/15/2023 Provider: STORM CASSIDY MD Diagnosis: Last Documented On 4 8:54AM By Denice Stevenson ; [facility], [facility] Budesonide-Formoterol Fumara te 80-4.5 MCG/ACT Inhalation Aerosol 07/15/2023 Provider: STORM POWELL MD Diagnosis: Last Documented On 4 8:54AM By Denice Stevenson ; [facility], [facility] Estradiol 2 MG Oral Tablet 07/15/2023 Provider: Yoshi POWELL MD Diagnosis: Last Documented On 4 8:54AM By Denice Stevenson ; [facility], [facility] Lisinopril 10 MG Oral Tablet 07/15/2023 Provider: JJ LUKE Diagnosis: Last Documented On 4 8:54AM By Denice Stevenson ; [facility], [facility] Breyna 80-4.5 MCG/ACT Inhalation Aerosol 06/18/2023 Provider: STORM POWELL MD Diagnosis: Last Documented On 4 8:54AM By Denice Stevenson ; [facility], [facility] Methocarbamol 500 MG Oral Tablet 06/16/2023 Provider : STORM POWELL MD Diagnosis: Last Documented On 4 10:07AM By Denice Stevenson ; [facility], [facility] Phenazopyridine HCl 200 MG Oral Tablet 05/06/2023 Pr ovider: Diagnosis: Last Documented On 4 10:07AM By Denice Stevenson ; [facility], [facility] Medications Administered Includes: Administered Medications from this encounter No Administered Medications Recorded Vital Signs Includes: Vital Signs from this encounter Vital Name 09/16/2023 08:46A Height (in) 68 Weight (lb) 165 Body Mass Index 25.1 Body Surface Area 1.9 Pain Level 5 Note: lc Last Documented: On 09/16/2023 8:47AM ; [facility], [facility] Results Includes: Results discussed during this encounter No Results Recorded For Specified Dates History of Present Illness Includes: History of Present Illness from this encounter HPI Daniela Mendoza is a 58 year old female. - Allergy list reviewed - Problem list reviewed - Medication list reviewed - Previous history of new onset pain Injury is not work related or an automotive accident - Patient pain level from 1-10: 5 - Yes, previous treatment. PCP Patient is here today for new problem with neck pain that she has had this problem for years she gets some associated headaches with it it will shoot up the neck and to the thoracic area to she has a job where she does not lot of sitting it does bother her standing long periods of time lying flat makes it feel better no radicular symptoms she is tried some Tylenol with it as well as muscle relaxers. She denies any balance problems bowel bladder issues with this. Social History Description Last Updated Tobacco use 09/16/2023 Last Documented On 4 1:19PM ; [facility] Yes, current smoker. 09/16/2023 Last Documented On 4 1:19PM ; [facility] No recent change in diet 09/16/2023 Last Documented On 4 1:19PM ; [facility] Alcohol use 11/06/2018 Last Documented On 4 8:37AM ; [facility] Caffeine use 11/06/2018 Last Documented On 4 8:37AM ; [facility] Current smoker 11/06/2018 Last Documented On 4 8:37AM ; [facility], [facility] Exercising regularly 11/06/2018 Last Documented On 4 8:37AM ; [facility], [facility] No recent change in diet 11/06/2018 Last Documented On 4 8:37AM ; [facility], [facility] Not using drugs 11/06/2018 Last Documented On 4 8:37AM ; [facility], [facility] Smoking Status Unknown Procedures and Surgical History Includes: Procedures from this encounter Procedures Code Diagnosis Performing Provider Service L ocation Service Date intervention and counseling on cessation of tobacco use 4000F Last Documented On 4 4:27PM ; [facility], [facility] use of tobacco assessment performed 1000F Last Documented On 4 8:37AM ; [facility] review of medications documented 1160F Last Documented On 4 8:37AM ; [facility] an X-ray was performed [facility] [id number] Last Documented On 4 8:48AM ; [facility] Surgical History Last Updated History of appendectomy 11/06/2018 Last Documented On 4 8:37AM ; [facility] History of hysterectomy 11/06/2018 Last Documented On 4 8:37AM ; [facility] Medical History Includes: Medical History addressed during this encounter Description Last Updated No recent immunization for flu 4 Last Documented On 4 8:37AM ; [facility] No recent immunization for pneumococcal pneumonia 08/02/2023 Last Documented On 4 8:37AM ; [facility] History of asthma 11/06/2018 Last Documented On 4 8:37AM ; [facility] History of depression 11/06/2018 Last Documented On 4 8:37AM ; [facility] Intermittent hypertension 11/06/2018 Last Documented On 4 8:37AM ; [facility] Family History Includes: Family History addressed during this encounter Description Last Updated Family history of cancer 11/06/2018 Last Documented On 4 8:37AM ; [facility] Family history of diabetes mellitus 10/19 Last Documented On 4 8:37AM ; [facility] Family history of osteoporosis 9 Last Documented On 4 8:37AM ; [facility] Family history of rheumatoid arthritis 0 11/06/2018 Last Documented On 4 8:37AM ; [facility] Review of Systems Includes: Review of Systems from this encounter Systemic: Feeling tired. No recent weight loss. Recent weight gain. No edema. Head: Headache. No sinus pain. Eyes: No vision problems. Vision problems. No glaucomatous visual field defect. No Cataracts. Glasses/Contacts. No Glaucoma. Otolaryngeal: No hearing loss. Tinnitus. No nasal symptoms. Cardiovascular: Chest pain or discomfort, palpitations, and Hypertension. No High Cholesterol. Pulmonary: Daytime asthma symptoms. No cough. Chronic cough and wheezing. Gastrointestinal: No heartburn. Abdominal pain, Indigestion, and Acid Reflux. No Peptic Ulcer, no GI Stomach Bleed, and no Ulcers. Endocrine: No hot flashes. Muscle weakness. No Diabetes, no Hypothyroid, and no Hyperthyroid. Hematologic: No easy bleeding. A tendency for easy bruising. No Anemia. Musculoskeletal: Arthritis, lower back pain, soft tissue swelling, and pain localized to one or more joints. Neurological: No dizziness and no convulsions. Numbness. Psychological: Anxiety. No emotional lability. Depression. No insomnia. Crying for no reason. Skin: No dry skin. No Ulcers, no Scars, no rash, and no ulcers. Allergic and Immunologic: Complaint of seasonal allergic reaction. Mental Status Includes: Mental Status from this encounter Description Anxiety Functional Status Includes: Functional Status from this encounter No Functional Status Recorded Physical Exam Includes: Physical Exam from this encounter Allergies Includes: Active Allergies No Known Allergies Encounters Encounter Provider Location Date Check-In Time Check-Out Time Diagnosis NEW PROBLEM/EST PT Joo Gillis PA-C [facility] 09/16/19 24 8:31AM 9:02AM Overweight Insurance Includes: Active Insurance Policies Plan Name Member ID Group # Subscriber Relationship Effect davina Dates - [facility] [id number] Daniela Mendoza Self Clinical Notes Includes: Clinical Notes from this encounter * Progress note Date Encounter Last Documented by 09/16/2023 NEW PROBLEM/EST PT Last document ed on 09/25/2023; 1:19 PM, Joo Gillis PA-C; [facility], [facility] Active Problems & Conditions - Neck Pain - Pain in the Lumbar Spine Chief Complaint The Chief Complaint is: Neck pain. Referred Here Referred by emir ray. History of Present Illness Daniela Mendoza is a 58 year old female. - Allergy list reviewed - Problem list reviewed - Medication list reviewed - Previous history of new onset pain Injury is not work related or an automotive accident - Patient pain level from 1-10: 5 - Yes, previous treatment. PCP Patient is here today for new problem with neck pain that she has had this problem for years she gets some associated headaches with it it will shoot up the neck and to the thoracic area to she has a job where she does not lot of sitting it does bother her standing long periods of time lying flat makes it feel better no radicular symptoms she is tried some Tylenol with it as well as muscle relaxers. She denies any balance problems bowel bladder issues with this. Current Medication - Albuterol Sulfate HFA 108 (90 Base) MCG/ACT Inhalation Aerosol, solution Aerosol Solution 18 days, 0 refills - Atorvastatin Calcium 40 MG Oral Tablet 90 days, 0 refills - Breyna 80-4.5 MCG/ACT Inhalation Aerosol 30 days, 0 refills - Budesonide-Formoterol Fumarate 80-4.5 MCG/ACT Inhalation Aerosol 30 days, 0 refills - Cyclobenzaprine HCl 10 MG Oral Tablet 30 days, 0 refills - Estradiol 2 MG Oral Tablet 90 days, 0 refills - Furosemide 20 MG Oral Tablet 30 days, 0 refills - Gabapentin 100 MG Oral Capsule, conventional 30 days, 0 refills - Lisinopril 10 MG Oral Tablet 90 days, 0 refills - Methocarbamol 500 MG Oral Tablet 30 days, 0 refills - Metoprolol Succinate ER 25 MG Oral Tablet, extended-release 24 hour Tablet Extended Release 24 Hour 30 days, 0 refills - Omeprazole 40 MG Oral Capsule, delayed-release Capsule Delayed Release 90 days, 0 refills - Phenazopyridine HCl 200 MG Oral Tablet 2 days, 0 refills - Vitamin D (Ergocalciferol) 1.25 MG (44327 UT) Oral Capsule, conventional 84 days, 0 refills Past Medical/Surgical History Reported: Medical: Intermittent hypertension. Immunization History: No recent immunization for flu and not for pneumococcal pneumonia. Diagnoses: Asthma. Depression Surgical: - Appendectomy - Hysterectomy Social History Yes, current smoker. Current diet: No recent change in diet. No recent change in diet. Caffeine use: Caffeine use. Tobacco use: Current smoker. Alcohol: Alcohol use. Drug Use: Not using drugs. Habits: Exercising regularly. Allergies - No Known Allergies Family History Cancer Osteoporosis Diabetes mellitus Rheumatoid arthritis Review Of Systems Systemic: Feeling tired. No recent weight loss. Recent weight gain. No edema. Head: Headache. No sinus pain. Eyes: No vision problems. Vision problems. No glaucomatous visual field defect. No Cataracts. Glasses/Contacts. No Glaucoma. Otolaryngeal: No hearing loss. Tinnitus. No nasal symptoms. Cardiovascular: Chest pain or discomfort, palpitations, and Hypertension. No High Cholesterol. Pulmonary: Daytime asthma symptoms. No cough. Chronic cough and wheezing. Gastrointestinal: No heartburn. Abdominal pain, Indigestion, and Acid Reflux. No Peptic Ulcer, no GI Stomach Bleed, and no Ulcers. Endocrine: No hot flashes. Muscle weakness. No Diabetes, no Hypothyroid, and no Hyperthyroid. Hematologic: No easy bleeding. A tendency for easy bruising. No Anemia. Musculoskeletal: Arthritis, lower back pain, soft tissue swelling, and pain localized to one or more joints. Neurological: No dizziness and no convulsions. Numbness. Psychological: Anxiety. No emotional lability. Depression. No insomnia. Crying for no reason. Skin: No dry skin. No Ulcers, no Scars, no rash, and no ulcers. Allergic and Immunologic: Complaint of seasonal allergic reaction. Physical Findings - Vitals taken 09/16/2023 08:46 am lc Height 68 in Weight 165 lbs Body Mass Index 25.1 kg/m2 Body Surface Area 1.9 m2 Pain Level 5 Patient does sit with a slouched posture She has full flexion and extension that was cervical spine limited bilateral rotation lag of about 50% rotation She has 5/5 biceps triceps deltoids wrist extension and flexion strength Negative Cruz's and radial reflex bilaterally Tests Outside facility x-rays of her cervical spine shows degenerative changes at C5- C6 September 03, 2023 Assessment - Overweight C5-C6 DDD Previous Tests Imaging: Intravascular Ultrasound (Coronary Vessel/Graft): An X-ray was performed [facility]. Available previous imaging studies were reviewed Available previous history reviewed Therapy - Intervention and counseling on cessation of tobacco use. Counseling/Education - Lose weight Plan StartCited - Other dorsalgia Therapy/Physical Therapy: Cervical Instructions: See PT order attached EndCited Patient was seen by myself Joo Gillis PA-C. Patient will follow up on October 29 and we will recheck her lower back that point in time where we try an epidural injection and we are going to add some physical therapy for her neck at this point in time for postural strengthening and stretching Notes This dictation was done with voice recognition software and may contain errors and omissions. Practice Management Use of tobacco assessment performed Review of medications documented. Care Team - Emir Ray APRN
--- OUTSIDE RECORDS SUMMARY | 2024-09-17 09:20 | XMS_ITS | Clinical Summary ---
Author Organization [facility] Address [address] [place] [address] Phone Care Team Providers Care Forge Shop Supervisor Name Role Phone Alen JIN, Kolby Belle Unavailable [phone] Keturah Camacho APRN Unavailable [phone] MARQUES JIN, SAL Primary Care Provider [phone] Reason for Visit and Chief Complaint Epidural Steroid Injection Problems Includes: Problems addressed during this encounter and other active Problems All Visits Onset Date Resolved Date Provider Condition S tatus Neck Pain 09/16/2023 Joo Gillis PA-C Active Last Documented On 4 8:36AM ; [facility], [facility] Pain in the Lumbar Spine 10/10/2018 Kolby talley MD Active Last Documented On 9 8:42AM ; [facility] Plan of Treatment No Plan [...] On 4 8:54AM By Denice Stevenson ; [facility], [facility] Metoprolol Succinate ER 25 M G Oral Tablet, extended-release 24 hour 07/29/2023 Provider: STORM Bashir Diagnosis: Last Documented On 4 8:54AM By Denice Stevenson ; [facility], [facility] Omeprazole 40 MG Oral Capsule, delayed-release 024 Provider: STORM POWELL MD Diagnosis: Last Documented On 4 8:54AM By Denice Stevenson ; [facility], [facility] Cyclobenzaprine HCl 10 MG Oral Tablet 07/23/2023 Pro vider: STORM POWELL MD Diagnosis: Last Documented On 4 8:54AM By Denice Stevenson ; [facility], [facility] Furosemide 20 MG Oral Tablet 07/18/2023 Provider: STORM POWELL MD Diagnosis: Last Documented On 4 8:54AM By Denice Stevenson ; [facility], [facility] Gabapentin 100 MG Oral Capsule, conventional 4 Provider: STORM POWELL MD Diagnosis: Last Documented On 4 8:54AM By Denice Stevenson ; [facility], [facility] Vitamin D (Ergocalciferol) 1 .25 MG (27972 UT) Oral Capsule, conventional 07/16/2023 Provider: STORM POWELL MD Diagnosis: Last Documented On 4 8:54AM By Denice Stevenson ; [facility], [facility] Albuterol Sulfate HFA 108 (9 0 Base) MCG/ACT Inhalation Aerosol, solution 07/15/2023 Provider: STORM CASSIDY MD Diagnosis: Last Documented On 4 8:54AM By Denice Stevenson ; [facility], [facility] Budesonide-Formoterol Fumara te 80-4.5 MCG/ACT Inhalation Aerosol 07/15/2023 Provider: STORM POWELL MD Diagnosis: Last Documented On 4 8:54AM By Denice Stevenson ; [facility], [facility] Estradiol 2 MG Oral Tablet 07/15/2023 Provider: Yoshi POWELL MD Diagnosis: Last Documented On 4 8:54AM By Denice Stevenson ; [facility], [facility] Lisinopril 10 MG Oral Tablet 07/15/2023 Provider: JJ LUKE Diagnosis: Last Documented On 4 8:54AM By Denice Stevenson ; [facility], [facility] Breyna 80-4.5 MCG/ACT Inhalation Aerosol 06/18/2023 Provider: STORM POWELL MD Diagnosis: Last Documented On 4 8:54AM By Denice Stevenson ; [facility], [facility] Methocarbamol 500 MG Oral Tablet 06/16/2023 Provider : STORM POWELL MD Diagnosis: Last Documented On 4 10:07AM By Denice Stevenson ; [facility] Phenazopyridine HCl 200 MG Oral Tablet 05/06/2023 Pr ovider: Diagnosis: Last Documented On 4 10:07AM By Denice Stevenson ; [facility], [facility] Medications Administered Includes: Administered Medications from this [...] Time Check-Out Time Diagnosis Epidural Steroid Injection Kolby Lowry MD [facility] 10/05/19 21 2:06PM 3:07PM Insurance Includes: Active Insurance Policies Plan Name Member ID Group # Subscriber Relationship Effect davina Dates - [facility] [id number] Daniela Mendoza Self Clinical Notes Includes: Clinical Notes from this encounter No Clinical Notes Recorded
--- OUTSIDE RECORDS SUMMARY | 2024-09-17 09:20 | XMS_ITS ---
Care Plan - [facility] Created on: September 17, 2024 Daniela Mendoza : 1965 Sex: Female Author Organization [facility] Address [address] [place] [address] Phone Care Team Providers Care Financial Specialist Name Role Phone Alen JIN, Kolby Belle Unavailable [phone] Keturah Camacho APRN Unavailable [phone] MARQUES JIN, SAL Primary Care Provider [phone]
--- OUTSIDE RECORDS SUMMARY | 2024-09-17 09:20 | XMS_ITS ---
Author Organization [facility] Address [address] [place] [address] Phone Care Team Providers Care Airborne Operations Name Role Phone Jessica JIN, [facility] [phone] Plan of Treatment No Plan of Treatment Recorded Assessments Includes: Assessments for all patient encounters No Assessments Recorded Medical Equipment - Implanted Devices Includes: Current and historical Devices No Medical Equipment Recorded Medications Administered Includes: Administered Medications in patient's chart No Administered Medications Recorded Results Includes: Results from 09/18/2023 through 09/17/2024 No Results Recorded For Specified Dates History of Present Illness History of Present Illness not supported for this document type No History of Present Illness Recorded Social History No Social History Recorded - Smoking Status Unknown Medical History Includes: Medical History in patient's chart No Medical History Recorded Family History Includes: Family History in patient's chart No Family History Recorded Review of Systems Review of Systems not supported for this document type No Review of Systems Recorded Mental Status No Mental Status Recorded Functional Status No Functional Status Recorded Physical Exam Physical Exam not supported for this document type No Physical Exam Recorded Insurance Includes: Active Insurance Policies Plan Name Member ID Group # Subscriber Relationship Effect davina Dates 1 - [facility] [id number] Daniela Mendoza Self Clinical Notes Includes: Signed Clinical Notes starting from 05/03/2022 No Clinical Notes Recorded
--- OUTSIDE RECORDS SUMMARY | 2024-09-17 09:20 | XMS_ITS ---
Author Organization [facility] , [facility] Address [address] [place] [address] Phone Care Team Providers Care Clinical Operations Leader Name Role Phone Alen JIN, Kolby Belle Unavailable [phone] Keturah Camacho APRN Unavailable [phone] MARQUES JIN, SAL Primary Care Provider [phone] Problems Includes: Active, inactive, and resolved Problems All Visits Onset Date Resolved Date Provider Condition S tatus Neck Pain 09/16/2023 Joo Gillis PA-C Active Last Documented On 4 8:36AM ; [facility], [facility] Pain in the Lumbar Spine 10/10/2018 Kolby talley MD Active Last Documented On 9 8:42AM ; [facility], [facility] Plan of Treatment Pending Tests Order Diagnosis Results Due Ordering P rovider Therapy - Physical Therapy Cervical Other dorsalgia 08/19 02/10 Joo Gillis PA-C Last Documented On 4 1:19PM ; [facility], [facility] Instructions to patient Intervention and counseling on cessation of tobacco use Last Documented On 4 4:27PM ; [facility], [facility] Lose weight Last Documented On 4 4:26PM ; [facility], [facility] Intervention and counseling on cessation of tobacco use Last Documented On 4 8:56AM ; [facility], [facility] Assessments Includes: Assessments for all patient encounters Findings Encounter Date Overweight NEW PROBLEM/EST PT with Joo Gillis PA-C 09/16/2023 Last Documented On 4 1:19PM ; [facility], [facility] Instructions Includes: Instructions for all patient encounters Instructions to patient Intervention and counseling on cessation of tobacco use Last Documented On 4 4:27PM ; [facility] Lose weight Last Documented On 4 4:26PM ; [facility] Intervention and counseling on cessation of tobacco use Last Documented On 4 8:56AM ; [facility] Medical Equipment - Implanted Devices Includes: Current and historical Devices No Medical Equipment Recorded Medications Includes: Current and historical Medications Current Medications (continue as prescribed) Atorvastatin Calcium 40 MG Oral Tablet 07/29/2023 Pr ovider: Diagnosis: Last Documented On 4 8:54AM By Denice Stevenson ; [facility] Metoprolol Succinate ER 25 M G Oral Tablet, extended-release 24 hour 07/29/2023 Provider: STORM Bashir Diagnosis: Last Documented On 4 8:54AM By Denice Stevenson ; [facility] Omeprazole 40 MG Oral Capsule, delayed-release 024 Provider: STORM POWELL MD Diagnosis: Last Documented On 4 8:54AM By Denice Setvenson ; [facility] Cyclobenzaprine HCl 10 MG Oral Tablet 07/23/2023 Pro vider: STORM POWELL MD Diagnosis: Last Documented On 4 8:54AM By Denice Stevenson ; [facility] Furosemide 20 MG Oral Tablet 07/18/2023 Provider: STORM POWELL MD Diagnosis: Last Documented On 4 8:54AM By Denice Stevenson ; [facility] Gabapentin 100 MG Oral Capsule, conventional 4 Provider: STORM POWELL MD Diagnosis: Last Documented On 4 8:54AM By Denice Stevenson ; [facility] Vitamin D (Ergocalciferol) 1 .25 MG (81006 UT) Oral Capsule, conventional 07/16/2023 Provider: STORM POWELL MD Diagnosis: Last Documented On 4 8:54AM By Denice Stevenson ; [facility], [facility] Albuterol Sulfate HFA 108 (9 0 Base) MCG/ACT Inhalation Aerosol, solution 07/15/2023 Provider: STORM CSASIDY MD Diagnosis: Last Documented On 4 8:54AM By Denice Stevenson ; [facility] Budesonide-Formoterol Fumara te 80-4.5 MCG/ACT Inhalation Aerosol 07/15/2023 Provider: STORM POWELL MD Diagnosis: Last Documented On 4 8:54AM By Denice Stevenson ; [facility] Estradiol 2 MG Oral Tablet 07/15/2023 Provider: Yoshi POWELL MD Diagnosis: Last Documented On 4 8:54AM By Denice Stevenson ; [facility] Lisinopril 10 MG Oral Tablet 07/15/2023 Provider: JJ LUKE Diagnosis: Last Documented On 4 8:54AM By Denice Stevenson ; [facility] Breyna 80-4.5 MCG/ACT Inhalation Aerosol 06/18/2023 Provider: STORM POWELL MD Diagnosis: Last Documented On 4 8:54AM By Denice Stevenson ; [facility] Methocarbamol 500 MG Oral Tablet 06/16/2023 Provider : STORM POWELL MD Diagnosis: Last Documented On 4 10:07AM By Denice Stevenson ; [facility], [facility] Phenazopyridine HCl 200 MG Oral Tablet 05/06/2023 Pr ovider: Diagnosis: Last Documented On 4 10:07AM By Denice Stevenson ; [facility], [facility] Past Medications on file Symbicort 80-4.5 MCG/ACT Inh alation Aerosol 09/02/2020 - 08/02/2023 Provider: JJ LUKE Diagnosis: Last Documented On 4 8:55AM By Denice Stevenson ; [facility] Meloxicam 15 MG Oral Tablet 08/26/2020 - 08/02/2023 Pr ovider: Keturah Camacho APRN Diagnosis: Last Documented On 4 8:55AM By Denice Stevenson ; [facility] Lisinopril 5 MG Oral Tablet 08/18/2020 - 08/02/2023 Pr ovider: Diagnosis: Last Documented On 4 8:55AM By Denice Stevenson ; [facility] Gabapentin 100 MG Oral Capsule 08/16/2020 - 08/02/2023 Provider: JJ LUKE Diagnosis: Last Documented On 4 8:54AM By Denice Stevenson ; [facility] Fluconazole 150 MG Oral Tablet 08/03/2020 - 08/02/2023 Provider: Diagnosis: Last Documented On 4 8:54AM By Denice Stevenson ; [facility] Breo Ellipta 200-25 MCG/INH Inhalation Aerosol Powder Breath Activated 07/28/2020 - 08/02/2023 Provider: Keturah Camacho APRN Diagnosis: Last Documented On 4 8:54AM By Denice Stevenson ; [facility], [facility] Vitamin D (Ergocalciferol) 1.25 MG (88266 UT) Oral Capsule 07/04/2020 - 08/02/2023 Provider: Keturah Camacho APRN Diagnosis: Last Documented On 4 8:54AM By Denice Stevenson ; [facility], [facility] Ventolin HFA 108 (90 Base) MCG/ACT Inhalation Aerosol Solution 07/04/2020 - 08/02/2023 Provider: Keturah Camacho APRN Diagnosis: Last Documented On 4 8:54AM By Denice Stevenson ; [facility], [facility] Omeprazole 40 MG Oral Capsule Delayed Release 07/04/19 21 - 08/02/2023 Provider: Diagnosis: Last Documented On 4 8:54AM By Denice Stevenson ; [facility], [facility] Estradiol 2 MG Oral Tablet 07/04/2020 - 08/02/2023 Pro vider: Keturah Camacho APRN Diagnosis: Last Documented On 4 8:54AM By Denice Stevenson ; [facility] buPROPion HCl ER (SR) 150 MG Oral Tablet Extended Release 12 Hour 07/04/2020 - 08/02/2023 Provider: Keturah Camacho APRN Diagnosis: Last Documented On 4 8:54AM By Denice Stevenson ; [facility], [facility] Robaxin 500MG Oral Tablet 12/17/2018 - 08/02/2023 Prov ider: Kolby Lowry MD Diagnosis: Take 1 tablet every 8 hrs prn pain Last Documented On 4 8:54AM By Denice Stevenson ; [facility] Robaxin 500MG Oral Tablet 11/03/2018 - 08/02/2023 Prov ider: Kolby Lowry MD Diagnosis: Take 1 tablet every 8 hrs prn pain Last Documented On 4 8:54AM By Denice Stevenson ; [facility], [facility] Cyclobenzaprine HCl 10MG Ora l Tablet 10/16/2018 - 08/02/2023 Provider: Kolby Lowry MD Diagnosis: Take 1 tablet every 8 hrs prn Last Documented On 4 8:54AM By Denice Stevenson ; [facility], [facility] diazePAM Powder 10/06/2018 - 09/19/2020 Provider: Diagnosis: Last Documented On 1 3:52PM By Isabelle Cruz ; [facility], [facility] Depo-Estradiol 5MG/ML Intramuscular Oil 10/02/2018 - 0 09/19/2020 Provider: Diagnosis: Last Documented On 1 3:52PM By Isabelle Cruz ; [facility], [facility] Lisinopril Powder 10/02/2018 - 09/19/2020 Provider: Diagnosis: Last Documented On 1 3:52PM By Isabelle Cruz ; [facility], [facility] Advair Diskus 100-50MCG/DOSE Inhalation Aerosol Powder Breath Activated 09/18/2018 - 09/19/2020 Provider: Diagnosis: Last Documented On 1 3:52PM By Isabelle Cruz ; [facility], [facility] buPROPion HCl Powder 08/30/2018 - 09/19/2020 Provider: Diagnosis: Last Documented On 1 3:52PM By Isabelle Cruz ; [facility], [facility] Medications Administered Includes: Administered Medications in patient's chart No Administered Medications Recorded Results Includes: Results from 09/18/2023 through 09/17/2024 No Results Recorded For Specified Dates History of Present Illness History of Present Illness not supported for this document type No History of Present Illness Recorded Social History Description Last Updated Tobacco use 09/16/2023 Last Documented On 4 1:19PM ; [facility], [facility] Yes, current smoker. 09/16/2023 Last Documented On 4 1:19PM ; [facility], [facility] No recent change in diet 09/16/2023 Last Documented On 4 1:19PM ; [facility], [facility] Alcohol use 11/06/2018 Last Documented On 9 7:41AM ; [facility], [facility] Caffeine use 11/06/2018 Last Documented On 9 7:41AM ; [facility], [facility] Current smoker 11/06/2018 Last Documented On 9 7:41AM ; [facility] Exercising regularly 11/06/2018 Last Documented On 9 7:41AM ; [facility], [facility] No recent change in diet 11/06/2018 Last Documented On 9 7:41AM ; [facility] Not using drugs 11/06/2018 Last Documented On 9 7:41AM ; [facility], [facility] Smoking Status Unknown Procedures and Surgical History Surgical History Last Updated History of appendectomy 11/06/2018 Last Documented On 9 7:41AM ; [facility], [facility] History of hysterectomy 11/06/2018 Last Documented On 9 7:41AM ; [facility], [facility] Medical History Includes: Medical History in patient's chart Description Last Updated No recent immunization for flu 4 Last Documented On 4 11:16AM ; [facility], [facility] No recent immunization for pneumococcal pneumonia 08/02/2023 Last Documented On 4 11:16AM ; [facility], [facility] History of asthma 11/06/2018 Last Documented On 9 7:41AM ; [facility] History of depression 11/06/2018 Last Documented On 9 7:41AM ; [facility], [facility] Intermittent hypertension 11/06/2018 Last Documented On 9 7:41AM ; [facility], [facility] Family History Includes: Family History in patient's chart Description Last Updated Diabetes mellitus 08/02/2023 Last Documented On 4 11:16AM ; [facility] Family history of cancer 11/06/2018 Last Documented On 9 7:41AM ; [facility] Family history of diabetes mellitus 10/19 Last Documented On 9 7:41AM ; [facility] Family history of osteoporosis 9 Last Documented On 9 7:41AM ; [facility] Family history of rheumatoid arthritis 0 11/06/2018 Last Documented On 9 7:41AM ; [facility] Review of Systems Review of Systems not supported for this document type No Review of Systems Recorded Mental Status Description Anxiety Functional Status No Functional Status Recorded Physical Exam Physical Exam not supported for this document type No Physical Exam Recorded Allergies Includes: Active, inactive, and resolved Allergies No Known Allergies Insurance Includes: Active Insurance Policies Plan Name Member ID Group # Subscriber Relationship Effect davina Dates - [facility] [id number] Daniela Torres Clinical Notes Includes: Signed Clinical Notes starting from 05/03/2022 No Clinical Notes Recorded
--- OUTSIDE RECORDS SUMMARY | 2024-09-17 09:20 | XMS_ITS | Clinical Summary ---
Author Organization [facility] , [facility] Address [address] [place] [address] Phone Care Team Providers Care Supervisor [employer] Name Role Phone Alen JIN, Kolby Belle Unavailable [phone] Keturah Camacho APRN Unavailable [phone] MARQUES JIN, SAL Primary Care Provider [phone] Reason for Visit and Chief Complaint Epidural Steroid Injection Problems Includes: Problems addressed during this encounter and other active Problems All Visits Onset Date Resolved Date Provider Condition S tatus Neck Pain 09/16/2023 Joo Gillis PA-C Active Last Documented On 4 8:36AM ; [facility], [facility] Pain in the Lumbar Spine 10/10/2018 Kolby talley MD Active Last Documented On 9 8:42AM ; [facility] Plan of Treatment No Plan of [...] On 4 8:54AM By Denice Stevenson ; [facility], [facility] Metoprolol Succinate ER 25 M G Oral Tablet, extended-release 24 hour 07/29/2023 Provider: STORM Bashir Diagnosis: Last Documented On 4 8:54AM By Denice Stevenson ; [facility], [facility] Omeprazole 40 MG Oral Capsule, delayed-release 024 Provider: STORM POWELL MD Diagnosis: Last Documented On 4 8:54AM By Denice Stevenson ; [facility], [facility] Cyclobenzaprine HCl 10 MG Oral Tablet 07/23/2023 Pro vider: STORM POWELL MD Diagnosis: Last Documented On 4 8:54AM By Denice Stevenson ; [facility], [facility] Furosemide 20 MG Oral Tablet 07/18/2023 Provider: STORM POWELL MD Diagnosis: Last Documented On 4 8:54AM By Denice Stevenson ; [facility], [facility] Gabapentin 100 MG Oral Capsule, conventional 4 Provider: STORM POWELL MD Diagnosis: Last Documented On 4 8:54AM By Denice Stevenson ; [facility], [facility] Vitamin D (Ergocalciferol) 1 .25 MG (21750 UT) Oral Capsule, conventional 07/16/2023 Provider: STORM POWELL MD Diagnosis: Last Documented On 4 8:54AM By Denice Stevenson ; [facility], [facility] Albuterol Sulfate HFA 108 (9 0 Base) MCG/ACT Inhalation Aerosol, solution 07/15/2023 Provider: STORM CASSIDY MD Diagnosis: Last Documented On 4 8:54AM By Denice Stevenson ; [facility], [facility] Budesonide-Formoterol Fumara te 80-4.5 MCG/ACT Inhalation Aerosol 07/15/2023 Provider: STORM POWELL MD Diagnosis: Last Documented On 4 8:54AM By Denice Stevenson ; [facility], [facility] Estradiol 2 MG Oral Tablet 07/15/2023 Provider: Yoshi POWELL MD Diagnosis: Last Documented On 4 8:54AM By Denice Stevenson ; [facility], [facility] Lisinopril 10 MG Oral Tablet 07/15/2023 Provider: JJ LUKE Diagnosis: Last Documented On 4 8:54AM By Denice Stevenson ; [facility], [facility] Breyna 80-4.5 MCG/ACT Inhalation Aerosol 06/18/2023 Provider: STORM POWELL MD Diagnosis: Last Documented On 4 8:54AM By Denice Stevenson ; [facility], [facility] Methocarbamol 500 MG Oral Tablet 06/16/2023 Provider : STORM POWELL MD Diagnosis: Last Documented On 4 10:07AM By Denice Stevenson ; [facility], [facility] Phenazopyridine HCl 200 MG Oral Tablet 05/06/2023 Pr ovider: Diagnosis: Last Documented On 4 10:07AM By Denice Stevenson ; [facility], [facility] Medications Administered Includes: Administered Medications [...] Diagnosis Epidural Steroid Injection Tej Iniguez CRNA [facility] CROW 08/29/19 24 2:32PM 3:00PM Insurance Includes: Active Insurance Policies Plan Name Member ID Group # Subscriber Relationship Effect davina Dates - [facility] [id number] Daniela Mendoza Self Clinical Notes Includes: Clinical Notes from this encounter No Clinical Notes Recorded
--- OUTSIDE RECORDS SUMMARY | 2024-09-17 09:20 | XMS_ITS | Clinical Summary ---
Author Organization [facility] , [facility] Address [address] [place] [address] Phone Care Team Providers Care Cyanide Pot Hardener Name Role Phone Alen JIN, Kolby Belle Unavailable [phone] Emir Ray APRN Unavailable [phone] MARQUES JIN, SAL Primary Care Provider [phone] Reason for Visit and Chief Complaint The Chief Complaint is: back pain Problems Includes: Problems addressed during this encounter and other active Problems All Visits Onset Date Resolved Date Provider Condition S tatus Neck Pain 09/16/2023 Joo Gillis PA-C Active Last Documented On 4 8:36AM ; [facility] Pain in the Lumbar Spine 10/10/2018 Kolby talley MD Active Last Documented On 9 8:42AM ; [facility], [facility] Plan of Treatment Patient was seen by myself Joo Gillis PA-C. Patient will follow up 4-6 weeks post injection at L5-S1 for a lumbar epidural injection - Last Documented On 08/02/2023 11:16AM ; [facility], [facility] Pending Tests Order Diagnosis Results Due Ordering P rovider Therapy - Physical Therapy Cervical Other dorsalgia 08/19 02/10 Joo Gillis PA-C Last Documented On 4 1:19PM ; [facility], [facility] Instructions to patient Intervention and counseling on cessation of tobacco use Last Documented On 4 8:56AM ; [facility], [facility] Assessments Includes: Assessments from this encounter Findings Thoracic back pain and L5-S1 spondylolisthesis - Last Documented On 08/02/2023 11:16AM ; [facility], [facility] Instructions Includes: Instructions from this encounter Instructions to patient Intervention and counseling on cessation of tobacco use Last Documented On 4 8:56AM ; [facility], [facility] Medical Equipment - Implanted Devices Includes: Current Devices No Medical Equipment Recorded Medications Includes: Medications discussed during this encounter and other current Medications Discontinued / Stopped on this date JJ LUKE on 09/02/2020 Symbicort 80-4.5 MCG/ACT Inhalation Aerosol Provider: JJ LUKE Diagnosis: Last Documented On 4 8:55AM By Denice Stevenson ; [facility], [facility] Meloxicam 15 MG Oral Tablet Provider: Emir Ray APRN Diagnosis: Last Documented On 4 8:55AM By Denice Stevenson ; [facility], [facility] Lisinopril 5 MG Oral Tablet Provider: Diagnosis: Last Documented On 4 8:55AM By Denice Stevenson ; [facility], [facility] Gabapentin 100 MG Oral Capsule Provider: JJ LUKE Diagnosis: Last Documented On 4 8:54AM By Denice Stevenson ; [facility], [facility] Fluconazole 150 MG Oral Tablet Provider: Diagnosis: Last Documented On 4 8:54AM By Denice Stevenson ; [facility], [facility] Breo Ellipta 200-25 MCG/INH Inhalation Aerosol Powder Breath Activated Provider: Emir Ray APRN Diagnosis: Last Documented On 4 8:54AM By Denice Stevenson ; [facility], [facility] Vitamin D (Ergocalciferol) 1 .25 MG (36964 UT) Oral Capsule Provider: Emir Ray APRN Diagnosis: Last Documented On 4 8:54AM By Denice Stevenson ; [facility], [facility] Ventolin HFA 108 (90 Base) M CG/ACT Inhalation Aerosol Solution Provider: Emir spicer APRN Diagnosis: Last Documented On 4 8:54AM By Denice Stevenson ; [facility], [facility] Omeprazole 40 MG Oral Capsule Delayed Release Provider: Diagnosis: Last Documented On 4 8:54AM By Denice Stevenson ; [facility], [facility] Estradiol 2 MG Oral Tablet Provider: Austin Ray APRN Diagnosis: Last Documented On 4 8:54AM By Denice Stevenson ; [facility] buPROPion HCl ER (SR) 150 MG Oral Tablet Extended Release 12 Hour Provider: Emir Ray APRN Diagnosis: Last Documented On 4 8:54AM By Denice Stevenson ; [facility] Robaxin 500MG Oral Tablet Provider: Demarcus Lowry MD Diagnosis: Last Documented On 4 8:54AM By Denice Stevenson ; [facility] Cyclobenzaprine HCl 10MG Oral Tablet Prov ider: Kolby Lowry MD Diagnosis: Last Documented On 4 8:54AM By Denice Stevenson ; [facility], [facility] Current Medications (continue as prescribed) Atorvastatin Calcium 40 MG Oral Tablet 07/29/2023 Pr ovider: Diagnosis: Last Documented On 4 8:54AM By Denice Stevenson ; [facility], [facility] Metoprolol Succinate ER 25 M G Oral Tablet, extended-release 24 hour 07/29/2023 Provider: STORM Bashir Diagnosis: Last Documented On 4 8:54AM By Denice Stevenson ; [facility], [facility] Omeprazole 40 MG Oral Capsule, delayed-release 024 Provider: STORM POWELL MD Diagnosis: Last Documented On 4 8:54AM By Denice Stevenson ; [facility], [facility] Cyclobenzaprine HCl 10 MG Oral Tablet 07/23/2023 Pro vider: STORM POWELL MD Diagnosis: Last Documented On 4 8:54AM By Denice Stevenson ; [facility] Furosemide 20 MG Oral Tablet 07/18/2023 Provider: STORM POWELL MD Diagnosis: Last Documented On 4 8:54AM By Denice Stevenson ; [facility] Gabapentin 100 MG Oral Capsule, conventional 4 Provider: STORM POWELL MD Diagnosis: Last Documented On 4 8:54AM By Denice Stevenson ; [facility] Vitamin D (Ergocalciferol) 1 .25 MG (20322 UT) Oral Capsule, conventional 07/16/2023 Provider: STORM POWELL MD Diagnosis: Last Documented On 4 8:54AM By Denice Stevenson ; [facility], [facility] Albuterol Sulfate HFA 108 (9 0 Base) MCG/ACT Inhalation Aerosol, solution 07/15/2023 Provider: STORM CASSIDY MD Diagnosis: Last Documented On 4 8:54AM By Denice Stevenson ; [facility], [facility] Budesonide-Formoterol Fumara te 80-4.5 MCG/ACT Inhalation Aerosol 07/15/2023 Provider: STORM POWELL MD Diagnosis: Last Documented On 4 8:54AM By Denice Stevenson ; [facility], [facility] Estradiol 2 MG Oral Tablet 07/15/2023 Provider: Yoshi POWELL MD Diagnosis: Last Documented On 4 8:54AM By Denice Stevenson ; [facility], [facility] Lisinopril 10 MG Oral Tablet 07/15/2023 Provider: JJ LUKE Diagnosis: Last Documented On 4 8:54AM By Denice Stevenson ; [facility], [facility] Breyna 80-4.5 MCG/ACT Inhalation Aerosol 06/18/2023 Provider: STORM POWELL MD Diagnosis: Last Documented On 4 8:54AM By Denice Stevenson ; [facility], [facility] Methocarbamol 500 MG Oral Tablet 06/16/2023 Provider : STORM POWELL MD Diagnosis: Last Documented On 4 10:07AM By Denice Stevenson ; [facility], [facility] Phenazopyridine HCl 200 MG Oral Tablet 05/06/2023 Pr ovider: Diagnosis: Last Documented On 4 10:07AM By Denice Stevenson ; [facility], [facility] Medications Administered Includes: Administered Medications from this encounter No Administered Medications Recorded Vital Signs Includes: Vital Signs from this encounter Vital Name 08/02/2023 08:56A Height (in) 68 Weight (lb) 165 Body Mass Index 25.1 Body Surface Area 1.9 Pain Level 9 Note: lc Last Documented: On 08/02/2023 8:56AM ; [facility], [facility] Results Includes: Results discussed during this encounter No Results Recorded For Specified Dates History of Present Illness Includes: History of Present Illness from this encounter HPI Daniela Mendoza is a 58 year old female. - Symptoms catching heat makes the pain better lying flat makes the pain worse. - Allergy list reviewed - Problem list reviewed - Medication list reviewed - Previous history of new onset pain Injury is not work related or an automotive accident - Patient pain level from 1-10: 8 - Yes, previous treatment. [facility] PCP ? History of Physical Therapy BGO ? History of Home Exercise ? History of Chiropractic [place] ? History of Injections Medications used for this condition: Patient is here today with complaints of thoracic pain in the lower back pain and some right-sided buttock pain has been ongoing for about 2 months more with the thoracic back pain in the lower back pain has been present for a long time she has been complaining of upper back spasms. She is tried Flexeril Robaxin lidocaine gabapentin she has a L5-S1 spondylolisthesis and complaining of some pain that will radiate to the right buttock worse with sitting and standing she is done physical therapy in the past in his done some home exercises. Her last epidural injection was a few years ago but she does not remember what kind of relief that she got with that though. She does remember though that it helped her. Social History Description Last Updated No recent change in diet 08/02/2023 Last Documented On 4 11:16AM ; [facility], [facility] Not a current smoker. 08/02/2023 Last Documented On 4 11:16AM ; [facility], [facility] Tobacco use 08/02/2023 Last Documented On 4 11:16AM ; [facility], [facility] Alcohol use 11/06/2018 Last Documented On 4 8:55AM ; [facility], [facility] Caffeine use 11/06/2018 Last Documented On 4 8:55AM ; [facility], [facility] Current smoker 11/06/2018 Last Documented On 4 8:55AM ; [facility], [facility] Exercising regularly 11/06/2018 Last Documented On 4 8:55AM ; [facility], [facility] No recent change in diet 11/06/2018 Last Documented On 4 8:55AM ; [facility], [facility] Not using drugs 11/06/2018 Last Documented On 4 8:55AM ; [facility], [facility] Smoking Status Unknown Procedures and Surgical History Includes: Procedures from this encounter Procedures Code Diagnosis Performing Provider Service L ocation Service Date intervention and counseling on cessation of tobacco use 4000F Last Documented On 4 8:56AM ; [facility], [facility] use of tobacco assessment performed 1000F Last Documented On 4 8:55AM ; [facility], [facility] review of medications documented 1160F Last Documented On 4 8:56AM ; [facility], [facility] Surgical History Last Updated History of appendectomy 11/06/2018 Last Documented On 4 8:55AM ; [facility], [facility] History of hysterectomy 11/06/2018 Last Documented On 4 8:55AM ; [facility], [facility] Medical History Includes: Medical History addressed during this encounter Description Last Updated No recent immunization for flu 4 Last Documented On 4 11:16AM ; [facility], [facility] No recent immunization for pneumococcal pneumonia 08/02/2023 Last Documented On 4 11:16AM ; [facility], [facility] History of asthma 11/06/2018 Last Documented On 4 8:55AM ; [facility], [facility] History of depression 11/06/2018 Last Documented On 4 8:55AM ; [facility] Intermittent hypertension 11/06/2018 Last Documented On 4 8:55AM ; [facility], [facility] Family History Includes: Family History addressed during this encounter Description Last Updated Diabetes mellitus 08/02/2023 Last Documented On 4 11:16AM ; [facility], [facility] Family history of cancer 11/06/2018 Last Documented On 4 8:55AM ; [facility] Family history of diabetes mellitus 10/19 Last Documented On 4 8:55AM ; [facility], [facility] Family history of osteoporosis 9 Last Documented On 4 8:55AM ; [facility] Family history of rheumatoid arthritis 0 11/06/2018 Last Documented On 4 8:55AM ; [facility] Review of Systems Includes: Review of [...] and Immunologic: Complaint of seasonal allergic reaction. 09/19/20 Mental Status Includes: Mental Status from this encounter Description Anxiety Functional Status Includes: Functional Status from this encounter No Functional Status Recorded Physical Exam Includes: Physical Exam from this encounter Allergies Includes: Active Allergies No Known Allergies Encounters Encounter Provider Location Date Check-In Time Check-Out Time Diagnosis NEW PROBLEM/EST PT Joo Gillis PA-C [facility] 08/02/19 24 8:30AM 9:33AM Insurance Includes: Active Insurance Policies Plan Name Member ID Group # Subscriber Relationship Effect davina Dates - [facility] [id number] Daniela Mendoza Self Clinical Notes Includes: Clinical Notes from this encounter * Progress note Date Encounter Last Documented by 08/02/2023 NEW PROBLEM/EST PT Last document ed on 08/02/2023; 11:16 AM, Joo Gillis PA-C; [facility] Active Problems & Conditions - Pain in the Lumbar Spine Chief Complaint The Chief Complaint is: Back pain. Referred Here Referred by emir ray. History of Present Illness Daniela Mendoza is a 58 year old female. - Symptoms catching heat makes the pain better lying flat makes the pain worse. - Allergy list reviewed - Problem list reviewed - Medication list reviewed - Previous history of new onset pain Injury is not work related or an automotive accident - Patient pain level from 1-10: 8 - Yes, previous treatment. BGO PCP - History of Physical Therapy BGO - History of Home Exercise - History of Chiropractic [place] - History of Injections Medications used for this condition: Patient is here today with complaints of thoracic pain in the lower back pain and some right-sided buttock pain has been ongoing for about 2 months more with the thoracic back pain in the lower back pain has been present for a long time she has been complaining of upper back spasms. She is tried Flexeril Robaxin lidocaine gabapentin she has a L5-S1 spondylolisthesis and complaining of some pain that will radiate to the right buttock worse with sitting and standing she is done physical therapy in the past in his done some home exercises. Her last epidural injection was a few years ago but she does not remember what kind of relief that she got with that though. She does remember though that it helped her. Current Medication - Albuterol Sulfate HFA 108 (90 Base) MCG/ACT Inhalation Aerosol, solution 18 days, 0 refills - Atorvastatin Calcium [...] 25 MG Oral Tablet, extended-release 24 hour 30 days, 0 refills - Omeprazole 40 MG Oral Capsule, delayed-release 90 days, 0 refills - Phenazopyridine HCl 200 MG Oral Tablet 2 days, 0 refills - Vitamin D (Ergocalciferol) 1.25 MG (24160 UT) Oral Capsule, conventional 84 days, 0 refills Past Medical/Surgical History Reported: Medical: Intermittent hypertension. Immunization History: No recent immunization for flu and not for pneumococcal pneumonia. Diagnoses: Asthma. Depression Surgical: - Appendectomy - Hysterectomy Social History Not a current smoker. Current diet: No recent change in diet. No recent change in diet. Caffeine use: Caffeine use. Tobacco use: Current smoker. Alcohol: Alcohol use. Drug Use: Not using drugs. Habits: Exercising regularly. Allergies - No Known Allergies Family History Cancer Diabetes mellitus Osteoporosis Diabetes mellitus Rheumatoid arthritis Review Of [...] and Immunologic: Complaint of seasonal allergic reaction. 09/19/20 Physical Findings - Vitals taken 08/02/2023 08:56 am lc Height 68 in Weight 165 lbs Body Mass Index 25.1 kg/m2 Body Surface Area 1.9 m2 Pain Level 9 She is pleasant alert and oriented x3 Some tender in the thoracic and lumbar paraspinals She is 5/5 E[facility] gastrocs quadriceps tibialis anterior strength bilaterally negative straight leg raise bilaterally Tests Two views of the thoracic spine were negative two views lumbar spine shows L5-S1 spondylolisthesis 08/02/2023 Assessment Thoracic back pain and L5-S1 spondylolisthesis Previous Tests Available previous imaging studies were reviewed Available previous history reviewed Therapy - Intervention and counseling on cessation of tobacco use. Plan Patient was seen by myself Joo Gillis PA-C. Patient will follow up 4-6 weeks post injection at L5-S1 for a lumbar epidural injection Notes This dictation was done with voice recognition software and may contain errors and omissions. Practice Management Use of tobacco assessment performed Review of medications documented. Care Team - Emir Ray APRN
[2024-09-17 09:41] LABS: Basophils % 0.5 % (0.1-2.0); Eosinophils # 0.1 Kmm3 (0.0-0.4); Eosinophils % 0.8 % (0.1-12.0); Hematocrit 37.1 % (37.0-47.0); Hemoglobin 12.5 g/dL (12.2-16.2); Lymphocytes # 2.6 K/mm3 (0.7-4.5); Mean Corpuscular HGB Conc 33.7 g/dL (31.8-35.4); Mean Corpuscular Hemoglobin 31.8 pg (27.0-31.2); Mean Corpuscular Volume 94.4 fl (81-99); Mean Platelet Volume 9.7 fl (7.4-10.4); Monocytes # 0.6 K/mm3 (0.1-1.0); Monocytes % 7.5 % (1.7-9.3); Neutrophils % 59.6 % (37.0-80.0); Nucleated Red Blood Cells # 0 10^3/uL; Nucleated Red Blood Cells % 0 %; Platelet Count 239 K/mm3 (142-424); Red Blood Count 3.93 M/mm3 (4.20-5.40); Red Cell Distribution Width 13.2 % (11.5-17.5); Red Cell Distribution Width-SD 45.6 fL; White Blood Count 8.4 K/mm3 (4.8-10.8)
[2024-09-17 10:08] LABS: Albumin Level 3.9 g/dl (3.5-5.0); Chloride 108 mmol/L (98-107); Potassium 4.3 mmoL/L (3.5-5.1); Sodium 135 mmol/L (136-145)
[2024-09-17 10:11] LABS: Alanine Aminotransferase 20 U/L (12-78); Alkaline Phosphatase 82 U/L (38-126); Anion Gap 8.3 mEq/L (5-15); Aspartate Amino Transferase 24 U/L (14-36); Bilirubin,Indirect 0.6 mg/dL (0.0-0.9); Bilirubin,Total 0.6 mg/dl (0.2-1.3); Bilirubin,Unconjugated 0.6 mg/dL (0.0-1.1); Blood Urea Nitrogen 13 mg/dl (7-17); Calcium 9.6 mg/dl (8.4-10.2); Carbon Dioxide 23 mmol/L (22.0-30.0); Cholesterol 171 mg/dl (140-200); Estimated Glomerular Filt Rate 51 ml/min (>60); GFR (African American) 62 ML/MIN (>60); Glucose 103 mg/dl (74-100); Total Protein,Serum 6.5 g/dl (6.3-8.2); Triglycerides 119 mg/dl (30-150); VLDL Cholesterol 24 mg/dL (0-40)
[2024-09-17 10:12] LABS: Chol/HDL Ratio 2.1 (1-3.5); HDL Cholesterol 82 mg/dl (40-60); Magnesium 1.4 mg/dl (1.6-2.3)
[2024-09-17 10:22] LABS: Direct LDL Cholesterol 63.48 mg/dL (100-129)
[2024-09-17 11:11] LABS: Thyroid Stimulating Hormone 0.09 uIU/mL (0.465-4.68)
== END 2024-09-17 23:59 | disposition home or self-care (01) ==
LOC: LAB 09:16
PROVIDERS: PCP Family Medicine; Visit Provider Nurse Practitioner Family
DX: E78.5 Hyperlipidemia, unspecified (principal); I10 Essential (primary) hypertension; R40.0 Somnolence; R53.83 Other fatigue
CPT/HCPCS: 36415; 80048; 80061; 80076; 83735; 84439; 84443; 85025

== ENCOUNTER 2024-09-22 07:42 | Outpatient (CLI) | payer BC, SELFPAY ==
--- OUTSIDE RECORDS SUMMARY | 2024-09-22 07:45 | XMS_ITS | Data Portability ---
Author Organization [facility], [facility] PERRY CLOSED Address [address] [place] [address] Care Team Providers Care Fire Protection Equipment Technician Name Role Phone JOHNNYSHILO Meal Cooker STORM POWELL Primary Care Provider Assessment Encounter Date Assessment Date Assessment LastModified by Organization Details LastModified Time 02/14/2024 02/14/2024 Polyarthralgia, likely related to osteoarthritis, DDD with associated muscle spasms. Symptoms are overall non-inflammator y in nature. Lower suspicion for inflammatory arthritis. I have advised pt to try to avoid NSAID use / decrease use of Meloxicam due to history of Abarca's esophagus and elevated Cr. Discussed use of Tylenol, topicals, Epsom salt soaks, fish oil, turmeric. On Gabapentin, muscle relaxants from PCP Increased bruising. Unclear etiology. No recent anemia noted. She started on vitamin B12 and iron supplements. Will check SPEP and immunofixation. 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 Had bronchoscopy, biopsies in the past with pulmonology. Will refer her to pulmonology to establish care. She is active smoker. Strong family history of malignancy - anal, colon, lung cancers. Will refer to hematology. No scheduled rheumatology follow-up needed at this time Not available 02/14/2024 16:54:47 Plan of Treatment Reminders Order Date Submit Date Provider Last Modified By Organization Details Last Modified Time Details Appointments CT SCAN 2024 07:40A M ct_scan Not available Not available Not available VIRTUAL VISIT 2024 08:00A M VALERIA GASTON MD Not available Not available Not available FOLLOW UP DAK 2025 03:30P M ROSIBEL HARMAN MD Not available Not available Not available Lab magnesi um, QN, serum or plasma 2023 024 [facility], [address] [place] [address], [phone], 02/14/2024 09:35:11 protein electro phoresi s panel, serum or plasma 2023 024 [facility], [address] [place] [address], [phone], 02/19/2024 05:20:37 immunof ixation , serum 2023 024 [email or web address] [facility], [address] [place] [address], [address], 02/21/2024 08:58:28 Referral pulmono logist referra l 2023 024 [email or web address] Valeria Gaston MD, [address] [place] [address], [place], [address], 03/13/2024 08:09:44 hematol ogist referra l - Easy bruisin g; hx smoking 2023 024 Bob Chowdhury MD, [address] [facility], [place], [address], 03/13/2024 08:09:43 Procedures home sleep testing (PROC) 2024 025 [email or web address] Not available 06/05/2024 11:34:24 home sleep testing (PROC) 2023 024 [email or web address] Not available 03/04/2024 09:06:44 Surgeries None recorde d. Imaging CT, chest, w/o contras t 2024 025 [email or web address] [facility] Pulmonary, [address] [place] [address], [id number], 06/19/2024 08:46:15 PET-CT, skull base to mid-thi gh scan 2024 025 [facility] Pulmonary, [address] [place] [address], [address], 06/05/2024 09:47:34 LDCT, chest, for lung cancer screeni ng - The provide r's office will call and schedul e test with Radiolo gy Dept and then the patient will be contact ed with details . 2023 [facility], [address] [place] [address], [phone], 05/18/2024 09:07:43 Medication Orders Symbico rt 160 mcg-4.5 mcg/act uation HFA aerosol inhaler 2023 [email or web address] [facility], [address] [place] [address], [address], [place], [address], 03/04/2024 08:45:53 Patient TargetsNo targets recorded. Patient Instructions Encounter Date Encounter Id Patient Instructions Last Modified By Organization Details Last Modified Time 03/04/2024 [id number] [place] [email or web address] Not available 03/04/2024 08:45:53 Lung Cancer Screen Decision Aid [email or web address] Not available 03/04/2024 08:45:53 lung cancer screening eligibility assessment* [email or web address] Not available 03/04/2024 08:45:55 She is overdue for CT scan. Has a prior history of nodules with a bronchoscopy performed in the past unclear if she had a CT-guided biopsy I will obtain an LDCT scan and review the images. I have strongly encouraged her on smoking cessation. [email or web address] Not available 03/04/2024 09:43:23 05/21/2024 [id number] [facility] TOB[facility] QUIT LINE amedaiyese Not available 05/21/2024 08:32:05 I have reviewed the images of the CT scan of the chest with her indicating evolution since 2020 we will proceed with a PET CT scan YEHUDA and I will review with her shortly afterwards [email or web address] Not available 05/21/2024 08:50:34 06/05/2024 [id number] [facility] QUIT LINE amedaiyese Not available 06/05/2024 11:23:43 She is doing fairly well she will have a CT scan in [address] today was negative with no increased avidity We Will order a sleep study. 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 6 low Not Available [facility] [address] [place], [address], 02/14/2024 09:35:11 02/14/20 24 02/19/2024 PROTE IN ELECT [facility] RESIS , SERUM protein, total 6.1 g/dL 6.1-8. 1 normal Not Available [facility] [address] [place], [address], 02/20/2024 10:34:56 02/14/20 24 02/20/2024 [facility] , SERUM albumin 3.5 g/dL 3.8-4. 8 low Not Available [facility] [address] [place], [address], 02/20/2024 10:34:56 02/14/20 24 02/20/2024 PROTE IN ELECT [facility] RESIS , SERUM otjnh-3-sbnl ulin 0.3 g/dL 0.2-0. 3 normal Not Available [facility] [address] [place], [address], 02/20/2024 10:34:56 02/14/20 24 02/20/2024 PROTE IN ELECT [facility] RESIS , SERUM bglso-1-nhjf ulin 0.8 g/dL 0.5-0. 9 normal Not Available [facility] [address] [place], [address], 02/20/2024 10:34:56 02/14/20 24 02/20/2024 PROTE IN ELECT [facility] RESIS , SERUM beta 1 globulin 0.4 g/dL 0.4-0. 6 normal Not Available [facility] [address] [place], [address], 02/20/2024 10:34:56 02/14/20 24 02/20/2024 PROTE IN ELECT [facility] RESIS , SERUM beta 2 globulin 0.4 g/dL 0.2-0. 5 normal Not Available [facility] [address] [place], [address], 02/20/2024 10:34:56 02/14/20 24 02/20/2024 PROTE IN ELECT ROPHO RESIS , SERUM gamma globulin 0.7 g/dL 0.8-1. 7 low Not Available [facility] [address] [place], [address], 02/20/2024 10:34:56 02/14/20 24 02/20/2024 PROTE IN ELECT [facility] RESIS , SERUM interpretati on SEE NOTE normal Hypog ammag lobul inemi a may be seen in early or evolv ing lymph oprol ifera tive disor ders, acqui red or conge nital immun e defic ienci es, immun osupp ressi ve thera py and light chain disea se. Consi danny urine prote in elect ropho resis , urine immun ofixa tion and/o r free light chain s if clini lex indic ated. Not Available [facility] [address] [place], [address], 02/20/2024 10:34:56 02/14/2002/24/2024 IMMUN OFIXA TION, SERUM interpretati on SEE NOTE normal Yola l jeanine rn. No monoc lonal prote ins detec quinton. Not Available [facility] [address] [place], [address], 02/24/2024 14:27:40 03/04/2003/04/2024 lung cance r scree jatin eligi bilit y asses sment * Age 50-80 YES Not Available [facility] [address] [address], [place], [address], 03/04/2024 08:45:18 03/04/20 24 03/04/2024 lung cance r scree jatin eligi bilit y asses sment * Age 50-77 Traditional Medicare YES Not Available [facility] [address] [address], [place], [address], 03/04/2024 08:45:18 03/04/2003/04/2024 lung cance r scree jatin eligi bilit y asses sment * Either current smoker or has quit in last 15 years YES Not Available [facility] [address] [place] [address], [place], [address], 03/04/2024 08:45:18 03/04/20 24 03/04/2024 lung cance r scree jatin eligi bilit y asses sment * Average of one pack a day for 20 years (20 pack years) YES Not Available [facility] [address], [address], 03/04/2024 08:45:18 03/04/20 24 03/04/2024 lung cance r scree jatin eligi bilit y asses sment * Displays signs or symptoms of lung cancer NO Not Available [facility] [address] [address], [place], [address], 03/04/2024 08:45:18 03/04/20 24 03/04/2024 lung cance r scree jatin eligi bilit y asses sment * Shared decision making with patient, Risks and benefits of CT Lung screen discussed YES Not Available [facility] [address] [place] [address], [place], [address], 03/04/2024 08:45:18 03/04/20 24 03/04/2024 lung cance r scree jatin eligi bilit y asses sment * Smoking cessation counseling provided YES Not Available [facility] [address] [place] [address], [place], [address], 03/04/2024 08:45:18 03/04/20 24 03/04/2024 lung cance r scree jatin eligi bilit y asses sment * Order provided for LDCT YES Not Available [facility] [address] [place] [address], [place], [address], 03/04/2024 08:45:18 05/18/20 24 05/18/2024 LDCT, chest , for lung cance r joaquine jatin [address] [address] Mark giron Name: DANIELA giron : 9[address] Mark giron 86 Orderi ng Provid er: [facility] DE MEDAIY ARMINDA EXAM DATE: 2023 EXAM: CT CHEST LUNG NODULE SCREEN ING CLINIC AL INFORM ATION: Lung cancer screen ing. Histor y of smokin g for 20 pack years. Mark giron is a curren t smoker . TECHNI QUE: Multip le axial CT images of the chest were obtain ed withou t inject ion of IV contra st using the low-do se lung cancer screen ing protoc ol. COMPAR BLAKE: None. NODULE SEARCH : 1. 13 mm nodule in the right apex, refere nce image #58 of series 201 2. 5 mm nodule in the right upper lobe, refere nce image #107 and series 201 3. Millim eter nodule in the left upper lobe, refere nce image #69 of series 202 OTHER FINDIN GS: AIRWAY S AND LUNGS: Trache a, princi pal bronch i and major bronch ial branch es are patent and normal . Lungs are clear. MEDIAS TINUM: Limite d evalua tion due to absenc e of IV contra st. Aorta, SVC, pulmon berna arteri es, pulmon berna veins and their major branch es and tribut shagyg are normal in calibe r. Cardia c size is normal . PLEURA AND CHEST WALL: No pleura l effusi on or mass. No chest wall abnorm ality. UPPER ABDOMI NAL ORGANS : Liver, gallbl adder, spleen , pancre as, adrena ls and upper visual ized portio ns of both kidney s are normal within the limits on interp retati on impose d by the absenc e of IV contra st. IMPRES SIS: 1. Bilate ral indete rminat e nodule s. Recomm end PET/CT 2. Allowi ng for the limita tions impose d by the scanni ng techni que, no other signif icant abnorm ality was identi fied. FOR DESKTOP PUBLISHER AL STATIS TICAL PURPOS E ONLY: Exam Type: Screen ing. Change : N/A. Lung-R ADS Catego ry: Lung-R ADS catego ry 4A Lung-R ADS Modifi er: None Recall Interv al: Immedi ate furthe r evalua tion. Recomm ended Exam at Recall : PET CT Interp reted By: Alen Cleaning MD Electr onical ly Signed By: Alen Cleaning MD on 2023 9:02 AM [email or web address] [facility] [address] [facility], [place], [address], 05/21/2024 08:20:53 06/05/19 25 06/05/2024 PET-C T, skull base to mid-t high scan [address] [place] [address] Patimarcio t Name: DANIELA giron : [address] Pat[address] t 84 Orderi ng Provid er: [facility] DE MEDAIY ARMINDA EXAM DATE: 2024 EXAM: PET-CT TUMOR SKULL BASE-M ID THIGH INT ST CLINIC AL INFORM ATION: Lung Nodule Evalua tion PROCED URE: Baseli ne blood glucos e level was 94 mg/dL. 13.7 mCi F-18 FDG ([facility] [id number]) was inject ed IV. After an uptake time of 57 minute s, skull base to midthi gh PET imagin g was perfor med. This was follow ed by a low dose attenu ation correc tion/a natomi c locali zation CT from lower craniu m throug h the midthi gh levels withou t IV or oral contra st. The patien t did not requir e sedati on for this exam. Compar blake: Chest CT 2023 FINDIN GS ON PET WITH CT CORREL ATION: HEAD AND NECK: No abnorm al areas of F-18 FDG uptake are seen. UPPER LIMBS: No abnorm al areas of F-18 FDG uptake are seen. CHEST: Normal uptake of F-18 FDG is noted in the myocar dium. Bilate ral lung nodule s are again noted. The larges t nodule s in the right apex. There is no signif icant hyperm etabol ism detect ed. No medias tinal or hilar adenop athy is presen t. ABDOME N: Normal uptake of F-18 FDG is noted in the liver, spleen , bowel and kidney s along with excret ion into the ureter s. No abnorm al areas of F-18 FDG uptake are seen. Solid organs of the upper abdome n show no signif icant abnorm alitie s. No adenop athy PELVIS : Normal excret ory collec tion of F-18 FDG is noted in the urinar y bladde r. No abnorm al areas of F-18 FDG uptake are seen. No adenop athy LOWER LIMBS: No abnorm al areas of F-18 FDG uptake are seen. IMPRES SIS: No signif icant hyperm etabol ic findin gs. Nodule s in the lung leung do not demons trate increa sed metabo lism. Sugges t follow -up repeat screen ing chest CT in 6 months Interp reted By: Alen Cleaning MD Electr onical ly Signed By: Alen Cleaning MD on 025 9:42 AM [email or web address] [facility] [address] [place], [address], 06/05/2024 11:20:45 06/30/19 25 06/23/2024 home sleep testi ng (PROC ) No observ ation record ed. [email or web address] Not Available 07/01 08:53:11 Result Notes None recorded. Problems Name Problem SNOMED Code Status Onset Date Resolution Date Notes Provider Name and Address Organization Details Recorded Time Chronic obstructive pulmonary disease 26748302 Active 2023 VALERIA GASTON MD [address] [place] [address], [address], [facility] 4 08:44:33 Nicotine dependence 68663611 Active 2023 VALERIA GASTON MD [address] [place] [address], [address], [facility] 4 08:45:15 Excessive day and night-time sleepiness 271317359 Active 2023 VALERIA GASTON MD [address] [place] [address], [address], [facility] 4 09:00:46 Nodule of lung 557799412 Active 2024 VALERIA GASTON MD [address] [place] [address], [address], [facility] 5 08:31:49 Problem Notes None recorded. Procedures Surgical History Date Name Laterality Status Provider Name and Address Organization Details Recorded Time 03/04/20 24 Spirometry completed Suha Carrero [facility] 03/04/2024 08:57:26 03/04/20 24 Spirometry - Pulmonary completed VALERIA GASTON MD [address] [place] [address], [address], [facility] 03/04/2024 09:37:27 hysterectomy completed SHILO SWIFT MD [address] [place] [address], [address], [facility] 02/14/2024 08:07:25 tonsillectomy completed SHILO SWIFT MD [address] [place] [address], [address], [facility] 02/14/2024 08:07:30 Imaging Results Imaging Date Name Status LastModified by [facility]iz [facility] Details LastModified Time 05/18/2024 LDCT, chest, for lung cancer screening completed [email or web address] [facility]iology [address], [address], 05/21/2024 08:20:53 06/05/2024 PET-CT, skull base to mid-thigh [facility] [address], [address], 06/05/2024 11:20:45 06/23/2024 home sleep testing (PROC) completed [facility] Information not available 07/01/2024 08:53:11 Procedure Notes None recorded. Medical Equipment None Reported. Allergies No known drug allergies Medications Name Sig Start Date Stop Date Status Note LastModified by Organization Details LastModified Time meloxicam 15 mg tablet Take 1 tablet every day by oral route. active Pt states she is not taking Not Available Not Available Not Available atorvastati n active Not Available Not Available Not Available methocarbam ol active Not Available Not Available Not Available diazepam active Not Available Not Avai lable Not Available furosemide active Not Available Not Av ailable Not Available alprazolam active Not Available Not Av ailable Not Available Vitamin D active Not Available Not Tess ilable Not Available lisinopril active Not Available Not Av ailable Not Available gabapentin active Not Available Not Av ailable Not Available Symbicort 160 mcg-4.5 mcg/actuati on HFA aerosol inhaler Inhale 2 puffs twice a day by inhalation route. 2023 active Not Available Not Available Not Avai lable diclofenac 1 % topical gel APPLY 2 GRAMS TO THE AFFECTED AREA(S) BY TOPICAL ROUTE 4 TIMES PER DAY active Not Available Not Available No t Available bupropion HBr active Not Available Not Available Not Available Vitals Date Recorded Body weight Respiratory rate Heart rate Oxygen saturation Oxygen saturation in Arterial blood by Pulse oximetry Systolic blood pressure Diastolic blood pressure Provider Name and Address Organization Details Last Updated DateTime 4 84871.6 6 g 16 /min 78 /min 99 % 99 % 112 mm[Hg] 78 mm[Hg] Albertina Rivas [facility] 4 08:03:14 Date Recorded Body weight Heart rate Oxygen saturation Oxygen saturation in Arterial blood by Pulse oximetry Systolic blood pressure Diastolic blood pressure Provider Name and Address Organization Details Last Updated DateTime 4 61183.7 g 76 /min 98 % 98 % 118 mm[Hg] 68 mm[Hg] Laurendanielito [facility] 4 08:21:38 Date Recorded Body mass index (BMI) Body height Provider Name and Address Organization Details Last Updated DateTime 03/04/2024 26.6 kg/m2 170.18 cm Suha Carrero [facility] 03/04/2024 08:53:39 Date Recorded Body height Body mass index (BMI) Body weight Oxygen saturation Oxygen saturation in Arterial blood by Pulse oximetry Heart rate Systolic blood pressure Diastolic blood pressure Provider Name and Address Organization Details Last Updated DateTime 5 170.18 cm 25.1 kg/m2 96644.8 8 g 98 % 98 % 78 /min 120 mm[Hg] 70 mm[Hg] Mona Nicholasneftaly [facility] 5 08:06:10 Date Recorded Body height Body mass index (BMI) Body weight Heart rate Oxygen saturation Oxygen saturation in Arterial blood by Pulse oximetry Systolic blood pressure Diastolic blood pressure Provider Name and Address Organization Details Last Updated DateTime 5 170.18 cm 24.6 kg/m2 47224 g 80 /min 98 % 98 % 122 mm[Hg] 72 mm[Hg] [facility] 5 11:15:25 Social History Question Answer Notes LastModified by Organizat ion Details LastModified Time Tobacco Smoking Status Current Every Day Smoker Albertina Rivas [facility] 02/14/2024 08:01:42 What Is Your Level Of Alcohol Consumption? Occasional [email or web address] Information not available 02/14/2024 What Was The Date Of Your Most Recent Tobacco Screening? 02/14/2024 [email or web address] Information not available 02/14/2024 How Much Tobacco Do You Smoke? 1 PPW [email or web address] Information not available 03/04/2024 Do You Use Any Illicit Or Recreational Drugs? No [email or web address] Information not available 03/04/2024 Sex: Female Functional Status None recorded. Mental Status None recorded. Family History Relationship Description Onset Age of this Age Resolved Age Notes LastModified by Organization Details LastModified Time Sister Fibromyalgia Not availab le 02/14/2024 08:06:37 Sister Malignant tumor of colon [email or web address] Not available 2023 08:06:54 Sister Malignant tumor of anus [email or web address] Not available 2023 08:07:08 Sister Rheumatoid arthritis [email or web address] Not available 2023 08:07:17 Father Malignant neoplasm of lung [email or web address] Not available 2023 08:06:43 Medical History Condition Response Allergies/Hayfever N Atrial Fibrillation Y Chronic Obstructive Pulmonary Disease N Blood Transfusion N Emphysema N Hospitalizations N Black Lung N Alzheimer's N Sarcoidosis N Pneumonia N Anemia N Heart Attack ([place]) N Ulcers N Deep Vein Thrombosis N Sinusitis N Diabetes N Bleeding Disorder N Arthritis Y Seizures/Epilepsy N Tuberculosis N AIDS/HIV N Alpha 1 Antitrypsin Deficiency N Congestive Heart Failure (CHF) N Cancer N Stroke N Asthma Y Sleep Apnea Y Thyroid Disorder N GERD/Reflux N High Cholesterol N Aneurysm N Hepatitis N Cirrhosis N Hypertension Y Osteoporosis N Gynecological HistoryNo gynecological history recorded. Obstetrics History GPAL:G 0 P 0 0 0 0 Past Encounters Encounter ID Performer Location Encounter Start Date Encounter Closed Date Diagnosis/Indication Diagnosis SNOMED-CT Code Diagnosis ICD10 Code Diagnosis Note [id number] SHILO SWIFT MD [facility] [address] [place] [address] 02/14/2024 07:48:15 02/15/2024 04:26:33 Generalized osteoarthritis 612581181 M15.9 Spontaneous bruising 161 896070 R23.3 Nodule of lung 366047618 R91.1 [id number] VALERIA GASTON MD PULMONARY [address] [facility], [address] [place] [address] 03/04/2024 07:54:52 03/04/2024 10:21:33 Chronic obstructive pulmonary disease 90028625 J44.9 She was told that she has COPD clinical symptoms may be a little suggestive of chronic bronchitis however pulmonary function test this morning was essentiall y normal.1. She had a pulmonary function test this morning with an FEV1 FVC ratio of 80 FEV1 of 99% of predicted FVC was 99% of predicted. 2. She is currently on Symbicort 2 puffs inhaled daily she can continue with this for now I have advised her on correct inhaler use including rinsing her mouth after each use. She has rare need for rescue inhaler. Nicotine dependence 5629 4008 F17.200 She continues to smoke I have discussed smoking cessation with her she wants to try to continue to cut back she used to smoke up to 2 packs of cigarettes a day she is down to maybe a pack for week now.She continues to meet criteria for LDCT scan I have reviewed CT scan images from the last 3 to 4 years showing a right upper lobe nodule she also had a bronchosco py which was complicate d by pneumothor ax.We will perform an LDCT scan the most recent was in January 2023 she is overdue for one Excessive day and night-time sleepiness 366564883 G47.19 She reports excessive daytime drowsiness and nighttime sleepiness she is unable to focus during the day and she feels very tired. She has an Blackstone score of close to 28I will order a home sleep study [id number] VALERIA GASTON MD PULMONARY [address] [facility], [address] [address] 05/21/2024 07:45:31 05/21/2024 08:56:35 Chronic obstructive pulmonary disease 61778739 J44.9 She was told that she has COPD clinical symptoms may be a little suggestive of chronic bronchitis however pulmonary function test was essentiall y normal.1. She had a pulmonary function test with an FEV1 FVC ratio of 80 FEV1 of 99% of predicted FVC was 99% of predicted. 2. She is currently on Symbicort 2 puffs inhaled daily she can continue with this for now I have advised her on correct inhaler use including rinsing her mouth after each use. She has rare need for rescue inhaler. Excessive day and night-time sleepiness 675808290 G47.19 She reports excessive daytime drowsiness and nighttime sleepiness she is unable to focus during the day and she feels very tired. She has an Blackstone score of close to 28I will order a home sleep study during her next visit once we clear up the nodule issue Nicotine dependence 5629 4008 F17.200 She continues to smoke I have discussed smoking cessation with her she wants to try to continue to cut back she used to smoke up to 2 packs of cigarettes a day she is down to maybe a pack for week now.She continues to meet criteria for LDCT scan I have reviewed CT scan images from the last 3 to 4 years showing a right upper lobe nodule she also had a bronchosco py which was complicate d by pneumothor ax. She never had a CT-guided biopsyLDCT scan results reviewed above under the nodule discussion . Nodule of lung [id number] R91.1 She has bilateral pulmonary nodules. The most dominant is a 1.3 cm nodule in the right upper lobe. This appears to have progressed over the past year in 2022 it was about 0.97 cm.She has multiple other nodules including 1 on the right upper lobe measuring 5 mm and another on the left upper lobe measuring 0.8 cm.She has never had a PET CT scan for further evaluation she reportedly had a bronchosco py which was complicate d by pneumothor ax. She never had a CT-guided biopsy.1. She has a [facility] SPN score of about 20% risk of malignancy 2. The nodule appears to have evolved since 2020 with the growth in the dominant right upper lobe nodule3. She clearly has multiple risk factors including her age nodule location size family history and growth of the nodule and also active cigarette smoker.4. We will proceed with a PET CT scan [facility] [place] to further evaluate these nodules5. If this is positive I will refer her for a CT-guided biopsy of the dominant nodule I do not think this can be reached by bronchosco py except if she has hilar or mediastina l lymph nodes which I do not see on the CT scan. [id number] VALERIA GASTON MD PULMONARY [address] [facility], [address] [place] [address] 06/05/2024 10:49:27 06/05/2024 12:33:14 Chronic obstructive pulmonary disease [id number] J44.9 She was told that she has COPD clinical symptoms may be a little suggestive of chronic bronchitis however pulmonary function test was essentiall y normal.1. She had a pulmonary function test with an FEV1 FVC ratio of 80 FEV1 of 99% of predicted FVC was 99% of predicted. 2. She is currently on Symbicort 2 puffs inhaled daily she can continue with this for now I have advised her on correct inhaler use including rinsing her mouth after each use. She has rare need for rescue inhaler.3. I advised on age-approp riate and recommende d vaccines Nicotine dependence 5629 4008 F17.200 She continues to smoke I have discussed smoking cessation with her she wants to try to continue to cut back she used to smoke up to 2 packs of cigarettes a day she is down to maybe a pack for week now.She continues to meet criteria for LDCT scan I have reviewed CT scan images from the last 3 to 4 years showing a right upper lobe nodule she also had a bronchosco py which was complicate d by pneumothor ax. She never had a CT-guided biopsyPET CT scan does not show any evidence of increased avidity.I have strongly advised her on smoking cessation. Nodule of lung [id number] R91.1 She has bilateral pulmonary nodules. The most dominant is a 1.3 cm nodule in the right upper lobe. This appears to have progressed over the past year in 2022 it was about 0.97 cm.She has multiple other nodules including 1 on the right upper lobe measuring 5 mm and another on the left upper lobe measuring 0.8 cm.She has never had a PET CT scan for further evaluation she reportedly had a bronchosco py which was complicate d by pneumothor ax. She never had a CT-guided biopsy.1. She has a [facility] SPN score of about 20% risk of malignancy 2. The nodule appears to have evolved since 2020 with the growth in the dominant right upper lobe nodule3. She clearly has multiple risk factors including her age nodule location size family history and growth of the nodule and also an active cigarette smoker.4. PET CT scan today 06/05/2024 shows no evidence of increased PET avidity5. We will follow-up with a CT of the chest in 6 months. Excessive day and night-time sleepiness [id number] G47.19 She reports excessive daytime drowsiness and nighttime sleepiness she is unable to focus during the day and she feels very tired. She has an Blackstone score of close to 28I will order a home sleep study [id number] ROSIBEL HARMAN MD [place] [address] [place] [address] 08/27/2024 14:01:20 08/27/2024 14:33:27 Multiple benign melanocytic nevi [id number] D22.5 - Benign lesions seen on exam today- SPF 30 or higher broad-spec trum sunscreen recommende d with re-applica tion every 2 hours- Discussed sun protection measures, including wide-brimm ed hat, sun-protec tive clothing, and avoidance of sun during peak hours of 10am-4pm- Instructed to monitor for changes and to call us for appointmen t with any changing or worrisome lesions Seborrheic keratosis 394 [id number] L82.1 - Benign overgrowth s of skin - Hereditary Senile angioma 3790189 I 78.1 - Benign blood vessel growths - Hereditary Solar lentigo 22203986 L 81.4 - Benign brown spots - Sun-induce d Telangiect sonia of skin of face 466842776 I78.1 Benign appearingF up with change or concerns Easy bruising 956277958 R58 Pt prev. on Mobic, receives steroid injections . Both can contribute to easy bruising Porokerato sis of [place] [id number] Q82.8 BenignFup with change or concerns Erythema ab igne [id number] 01 L59.0 The nature of the diagnosis was discussed. Pt admits to frequent heating pad use.Discus sed maintainin g a barrier between skin and heating pad, reduce heat.Fup with change or concerns Health Concerns Section Related Observation LastModified by Organization Detai ls LastModified Time None Recorded Concern Status LastModified by Organization Details LastModified Time None Recorded Advance Directives Directive None Recorded Payers Encounter Date Sequence Insurance Name Policy Number Policy Loza Covered Member ID Loza Member ID Guarantor Name 02/14/2024 1 [place] [id number] Daniela Mendoza [id number] 28 Daniela Mendoza 03/04/2024 1 [place] [id number] Daniela Mendoza [id number] 28 Daniela Mendoza 05/21/2024 1 [place] [id number] Daniela Mendoza [id number] 28 Daniela Mendoza 06/05/2024 1 [place] [id number] Daniela Mendoza [id number] 28 Daniela Mendoza 08/27/2024 1 [place] [id number] Daniela Mendoza [id number] 28 Daniela Mendoza Notes Date Note Type Note Provider Name and Address Organization Details Recorded Time 02/14/2024 text/html Referred by PCP for evaluation of multiple joint pain.She reports history of lumbar back pain with associated sciatica. She has had neck pain and muscle spasms across upper back.Reports swelling in feet and toes.Endorses bilateral hand pain and stiffness, worst in index fingers. Morning stiffness is present, but does not last too long. Hand symptoms tend to be worse with activity. Has not noticed swelling in hands. Works as a hospitality job titles.Wrists and elbows are ok.Shoulders can be painful with muscle spasms in upper back.Knees and ankles are ok.Reports easy bruising.Was taking Meloxicam, which has helped joint pains, but she stopped due bruising. Has recently resumed due to such significant pains.Granddaughters have psoriasis. No personal history of psoriasis.Reports dry eyes, dry mouth related to medication side effect.Denies any oral ulcers, alopecia, pleuritic pain or shortness of breath, photosensitivity, Raynaud's phenomenon.Denies blood in urine or stool.Started iron and vitamin B12 supplements.She has history of Abarca's esophagus, multiple lung nodules, hx ?atypical mycobacterium. Has not seen pharmacist per diem in a few years.She is active smoker.There is family history of malignancy including colon cancer, anal cancer, lung cancer.Denies constitutional symptoms. SHILO SWIFT MD [facility] [place], [address], [facility] 02/14/2024 16:55:07 03/04/2024 text/html This is a 59-yea r-old female who was referred to the pulmonary clinic for evaluation of shortness of breath and pulmonary nodule. She was seen by rheumatology. She has some chronic joint pains and has been using meloxicam. She was advised to stop these due to her easy bruising. She has a longstanding history of smoking over 40 pack years she continues to smoke although she is cutting back on the smoking.She feels tired all the time has difficulty sleeping and concentrating. She is scheduled for sleep study in May 2024She denies any significant daily cough or sputum production. No wheezingShe was told that she may have COPD and has been on Symbicort 2 puffs inhaled daily in the mornings and as needed albuterol which she has rarely used she denies any chest pain.Weight has been stable she denies any hemoptysis VALERIA GASTON MD [facility] [place], [address], [facility] 03/04/2024 09:43:55 05/21/2024 text/html She has been doi ng fairly well over the holiday no recent exacerbations she has not required any antibiotics or steroids She denies any significant cough or wheezing from her baseline. She continues to have excessive daytime drowsiness. She had a CT scan on 05/18/2024 which is reviewed below. She has continued to cut back on her smoking still about 1 pack in a week. MD Parrish [place], [address], [facility] 05/21/2024 08:51:53 06/05/2024 text/html She is doing tello rly well she was found to have a nodule in her lung which had increased in size from her previous scan.She had a PET CT scan this morningShe continues to complain of excessive daytime drowsiness and poor sleep. She also has witnessed apneas. [place], [address], [facility] 06/05/2024 12:25:49 08/27/2024 text/html Spot on noseFSENegative personal hxFamily hx of NN-NoxssxGl-qvoec, last seen 2012 ROSIBEL HARMAN MD [address] [place], [address], [facility] 08/27/2024 14:32:13 OBGyn Episode No OBEpisode recorded.
--- OUTSIDE RECORDS SUMMARY | 2024-09-22 07:45 | XMS_ITS | Continuity of Care Document ---
Author Organization [facility] Address [address] [place] [address] Care Team Providers Care Order Editor Name Role Phone JOHNNYSHILO Crime Scene Analyst STORM POWELL Primary Care Provider [phone] Assessment No assessment recorded. Plan of Treatment Reminders Order Date Submit Date Provider Last Modified By Organization Details Last Modified Time Details Appointments CT SCAN 2024 07:40A M ct_scan Not available Not available Not available VIRTUAL VISIT 2024 08:00A M JENN GASTON MD Not available Not available Not available FOLLOW UP [facility] 2025 03:30P M ROSIBEL HARMAN MD Not available Not available Not available Lab None recorded . Referral None recorded . Procedures None recorded . Surgeries None recorded . Imaging None recorded . Medication Orders None recorded . Patient TargetsNo targets recorded. Patient InstructionsNo instructions recorded. Reason for Referral None Reported. Problems Name Problem SNOMED Code Status Onset Date Resolution Date Notes Provider Name and Address Organization Details Recorded Time Chronic obstructive pulmonary disease 54865704 Active 2023 JENN GASTON MD [facility] [place], [address], [facility] 4 08:44:33 Nicotine dependence 57422356 Active 2023 JENN GASTON MD [address] [place] [address], [address], [facility] 4 08:45:15 Excessive day and night-time sleepiness 275772779 Active 2023 JENN GASTON MD [address] [place], [address], [facility] 09:00:46 Nodule of lung 962047264 [place] 20[place] [address] [place] [address], [address], [facility] 08:31:49 Problem Notes None recorded. Procedures Surgical History Date Name Laterality Status Provider Name and Address Organization Details Recorded Time 03/04/20 Spirometry completed Suha Alise [facility] 03/04/2024 08:57:26 03/04/20 24 Spirometry [place] [address] [place] [address], [address], [facility] 03/04/2024 09:37:27 hysterectomy completed SHILO TURNER MD [address] [place] [address], [address], [facility] 02/14/2024 08:07:25 tonsillectomy completed SHILO TURNER MD [address] [place] [address], [address], [facility] 02/14/2024 08:07:30 Imaging Results None recorded. Procedure Notes None recorded. Medical Equipment None [...] Not Available Not Available Not Available Vitals None Recorded Social History Question Answer Notes LastModified by Organizat ion Details LastModified Time Tobacco Smoking Status Current Every Day Smoker Albertina Rivas [facility] 02/14/2024 08:01:42 What Is Your Level Of Alcohol Consumption? Occasional [email or web address] Information not available 02/14/2024 What Was The Date Of Your Most Recent Tobacco Screening? 02/14/2024 [email or web address] Information not available 02/14/2024 How Much Tobacco Do You Smoke? 1 PPW Information not available 03/04/2024 Do You Use Any Illicit Or Recreational Drugs? No [email or web address] Information not available 03/04/2024 Sex: Female Functional Status None recorded. Mental Status None recorded. Family History Relationship Description Onset Age of this Age Resolved Age Notes LastModified by Organization Details LastModified Time Sister Fibromyalgia [email or web address] Not availab le 02/14/2024 08:06:37 Sister Malignant [...] N Pneumonia N Anemia N Heart Attack ([place]) N Ulcers N Deep Vein Thrombosis N [...] SNOMED-CT Code Diagnosis ICD10 Code Diagnosis Note [id number] ROSIBEL HARMAN MD [place] [address] [place] [address] 08/27/2024 14:01:20 08/27/2024 14:33:27 Multiple benign melanocytic nevi [id number] D22.5 - Benign lesions seen on exam [...] changing or worrisome lesions Seborrheic keratosis 394 233080 L82.1 - Benign overgrowth s of skin - Hereditary Senile angioma 4487099 I 78.1 - Benign blood vessel growths - Hereditary Solar lentigo 77593567 L 81.4 - Benign brown spots - Sun-induce d Telangiect sonia of skin of face 122923461 I78.1 Benign appearingF up with change or concerns Easy bruising 833980171 R58 Pt prev. on Mobic, receives steroid injections . Both can contribute to easy bruising Porokerato sis of [place] 68887601 Q82.8 BenignFup with change or concerns Erythema ab igne 5982832 01 L59.0 The nature of the diagnosis was discussed. Pt admits to frequent heating pad use.Discus sed maintainin g a barrier between skin and heating pad, reduce heat.Fup with change or concerns Health Concerns Section Related Observation LastModified by Organization Detai ls LastModified Time None Recorded Concern Status LastModified by Organization Details LastModified Time None Recorded Payers Encounter Date Sequence Insurance Name Policy Number Policy Loza Covered Member ID Loza Member ID Guarantor Name 08/27/2024 1 [place] [id number] Daniela Mendoza [id number] 28 Daniela Mendoza Notes Date Note Type Note Provider Name and Address Organization Details Recorded Time 08/27/2024 text/html Spot on noseFSENegative personal hxFamily hx of CP-TqjfwmDq-vvaai, last seen 2012 ROSIBEL HARMAN MD [address] [place], [address], [place] [facility] 08/27/2024 14:32:13 OBGyn Episode No OBEpisode recorded.
--- NOTE | 2024-09-22 08:00 | US_ITS ---
FINAL REPORT TECHNIQUE: Sonographic images of the right upper quadrant were obtained. CLINICAL HISTORY: hepatic cyst seen on echo FINDINGS: PANCREAS: Unremarkable. LIVER: Homogeneous. No focal hepatic lesion. No hepatic cyst seen. No intrahepatic biliary ductal dilatation. GALLBLADDER: Gallstones are noted. There is gallbladder wall thickening.. COMMON DUCT: 6 mm. Normal for age. RIGHT KIDNEY: The right kidney measures 10.2 cm. There is no hydronephrosis, mass, or stone. FREE FLUID: None. IMPRESSION: Homogeneous liver without liver lesion identified. Gallstones with gallbladder wall thickening. Recommend clinical correlation to exclude cholecystitis. Reviewed, Interpreted and Dictated by Estefany Santana MD Transcribed by Lauryn Pinedo Authenticated and [facility]
== END 2024-09-22 23:59 | disposition home or self-care (01) ==
LOC: RAD 07:43
PROVIDERS: PCP Family Medicine; Visit Provider Nurse Practitioner Family
DX: K82.8 Other specified diseases of gallbladder (principal); K76.89 Other specified diseases of liver
CPT/HCPCS: 76705

== ENCOUNTER 2024-10-15 06:01 | Day surgery (SDC) | payer BC, SELFPAY ==
[2024-10-09 07:44] VITALS: BMI 22.9
[2024-10-15] VITALS (10 sets, daily range): BP systolic 122–176; BP diastolic 61–95; PULSE 70–82; RESP 12–18; TEMP 36.3–36.6; O2SAT 96–99
--- NOTE | 2024-10-15 07:01 | P.PNANES_ITS ---
[facility] Disclaimer: The information contained in this section may have been updated after the patient was seen, as this information can be updated by other users. Medical History Hepatic cyst HLD (hyperlipidemia) Edema Acute radial nerve palsy of right upper extremity Pulmonic valve insufficiency Pulmonic stenosis Daytime somnolence HTN (hypertension) Tobacco dependence Gastroenteritis Surgical History Hx of tonsillectomy History of hysterectomy Family History Other Asthma Cancer Diabetes FHx: mental illness Hypertension Substance abuse Thyroid disorder Tuberculosis Social History (Updated 10/15/24 @ 06:34 by Shilpa Noel RN) Smoking Status: Current every day smoker tobacco type: cigarettes packs per day: 1 second hand exposure: Yes alcohol intake: current alcohol intake frequency: 0-2 drinks per day substance use type: denies use current occupational status: employed Travel in the last 8 weeks?: None household members: none housing: house current occupational exposures/hazards: No caffeine: Yes Have you lived/traveled outside [place] in past 30 days?: No Contact w/someone who lives/traveled outside US past 30 days?: No Exposure to someone with infectious disease in past 14 days?: No Do you have a fever (greater than 100.4 F or 38 C)?: No Have you tested positive for COVID-19?: No Exposed to someone with COVID-19 in past 14 days?: No Do you have a sore throat?: No Do you have a cough?: No Do you have any weakness?: No Are you experiencing any nausea/vomitting?: No Do you have any diarrhea?: No Are you experiencing any unusual bleeding?: No Do you have any muscle aches/pain?: No Do you have any abdominal pain?: No Are you experiencing loss of taste or smell?: No [facility] Anesthesia Checklist Patient Identification Patient Identification: Arm Band and Family Structural Data Admitted From: Home Planned Operative Procedure/s: Lap Martha Consent for Planned Operative Procedure(s) Verified: Yes Verified Documents: Surgical Consent and History and Physical NPO Status Verified Time NPO: 00:00 Additional verifications Patient : No Anesthesia Reactions: No Hx Blood Transfusions: No Blood Transfusion Reaction: No Cephalosporin Allergy: No Airway Assessment Mallampati Score:: Class II C-Spine Mobility Assessed: Yes TMJ Mobility Assessed: Yes Dentition: Good Dentition Neurological Assessment Level of Consciousness: Awake, Appropriate and Follows Commands Hx Seizures: No Numbness or tingling in extremities: No Anesthesia Plan Anesthesia Risk discussed: Yes ASA Class: II Anesthesia Type: General Preoperative Comments Pre-Operative Comments: COPD . HTN. Chronic Diarrhea.
[2024-10-15] MEDS: LIDOCAINE 1% 20ML MDV 20 ML (08:03)
[2024-10-15] MEDS: CEFAZOLIN SODIUM 1GM ADV 1 GM IV (08:05)
--- NOTE | 2024-10-15 09:04 | EXP.OP.NOTE ---
Date of procedure: 10/15/24 Pre-op Diagnosis:: Chronic calculus cholecystitis Post-op Diagnosis:: Acute calculus cholecystitis with purulent hydrops Procedure performed:: Laparoscopic cholecystectomy Surgeon:: Jon Barrientos MD INSTRUMENT INSPECTOR:: Khoa Toney Anesthesia: GETA Estimated blood loss (mL): 15 Operative findings:: Severe pericholecystic fat stranding with adhered omentum, small bowel, stomach, and colon Gallbladder wall thickening with distention Purulent hydrops Severe infundibular thickening Operative note:: After informed consent was obtained, the patient was taken to the operating room and placed in the supine position. General anesthesia was induced and the abdomen was prepped and draped in a sterile fashion. After infiltration with local anesthetic an infraumbilical incision was made. A Veress needle was placed in position. The abdomen was insufflated. A 5 mm optical trocar was placed in position. Under direct visualization, a 12 mm trocar was placed in the subxiphoid position and 2 additional 5 mm trocars were placed in the right upper quadrant. The gallbladder was elevated up and over the liver margin. The tissue around the cystic duct was carefully dissected. 3 clips were placed proximally and the duct was transected with harmonic mich. Harmonic mich were then utilized to dissect the gallbladder away from the liver margin with careful attention to the control of the cystic artery. The gallbladder was placed in a retrieval bag and removed through the subxiphoid trocar site. The right upper quadrant was thoroughly irrigated. No active bleeding or bile leak was noted. Fascia at the subxiphoid trocar site was reapproximated utilizing 0 Ethibond. The remaining trocars were removed. All wounds were irrigated and skin was closed with 4-0 Monocryl in an interrupted mattress fashion to facilitate hemostasis. The patient's anesthetic agents were reversed and extubation was completed prior to transfer to recovery in stable condition. Condition: stable Disposition: PACU Specimens:: Gallbladder and contents Complications:: No immediate
--- NOTE | 2024-10-15 09:23 | EXP.ANES.I ---
[facility] Anesthesia Record Part I Anesthesia Record I Intake, IV Amount: 900 Hydration: Adequate Estimated blood loss (mL): 15 Urine output (mL): 0 Blood Products used (#): none Blood Pressure: 153/95 SaO2: 96 Pulse Rate: 82 Airway Patency: Patent Respiratory Rate: 12 Temperature: 97.4 F Patient is:: Stable Stable to PACU at:: 09:20 Comments:: Difficult intubation, requiring glide scope. Very anterior.
--- NOTE | 2024-10-15 10:30 | EXP.ANES.II ---
[facility] Anesthesia Record Part II Anesthesia Record Part II Discharge Time: 09:50 Destination: Surgical Day Care (OP Surgery) PACU nurse assessment reviewed?: Yes Patient Condition:: Good Anesthesia Complications:: None Swallowing reflex intact?: Yes Airway Patency: Patent Cyanosis?: No Blood Pressure: 156/80 SaO2: 98 Respiratory Rate: 18 Pulse Rate: 73 Temperature: 97.4 F Mental Status: Alert & Oriented Pain level:: 0 Nausea and/or vomitting:: None Intake, IV Amount: 0 Hydration: Adequate
== END 2024-10-15 10:35 | disposition home or self-care (01) ==
PROVIDERS: PCP Family Medicine; Visit Provider Surgery
PROC: 0FT44ZZ Resection of Gallbladder, Percutaneous Endoscopic Approach (ICD-10-PCS; CPT 47562; principal; 2024-10-15 07:30)
DX: K81.0 Acute cholecystitis (principal); K82.1 Hydrops of gallbladder; K52.9 Noninfective gastroenteritis and colitis, unspecified; I10 Essential (primary) hypertension; F17.210 Nicotine dependence, cigarettes, uncomplicated; Z79.899 Other long term (current) drug therapy; E78.5 Hyperlipidemia, unspecified; K81.1 Chronic cholecystitis
CPT/HCPCS: 47562; 96374; J0690; J1100; J2250; J2405; J3010

== ENCOUNTER 2025-02-04 15:47 | Outpatient (CLI) | payer BC, SELFPAY ==
--- OUTSIDE RECORDS SUMMARY | 2025-02-05 12:18 | XMS_ITS | Clinical Summary ---
Author Organization [facility] Address [address] [place] [address] Care Team Providers Care Product Designer Name Role Phone Ronni Chan MD Primary Care Provider [phone] Allergies No known active allergies Medications ProAir HFA 108 (90 Base) MCG/ACT inhaler 10/30/2020 Act davina ascorbic acid (Vitamin C) 1000 MG tablet 1 tab(s) orally once a day Active buPROPion SR (Wellbutrin SR) 150 MG 12 hr tablet 2 (two) times a day. 09/26/2020 Active estradiol (Estrace) 2 MG tablet 2 mg 1 (one) time each day. 09/26/2020 Active omeprazole (PriLOSEC) [address] capsule 40 mg 1 (one) time each day. 09/23/2020 Active methocarbamol (Robaxin) 500 MG tablet 1.5 tab(s) orally every 4 hours, As Needed Active meloxicam (Mobic) 15 MG tablet 15 mg 1 (one) time each day. 10/30/2020 Active ergocalciferol 1.25 MG (02401 UT) capsule Twice weekly 09/26/2020 Active diazePAM (Valium) 10 MG tablet 1 tab(s) orally 2 times a day Active gabapentin (Neurontin) 100 MG capsule 10/11/2020 Active cyclobenzaprine (Flexeril) 10 MG tablet 10 mg 2 (two) times a day. 08/16/2020 Active JOSH ASPIRIN PO 1 tab(s) orally once a day Active HM Lidocaine Patch 4 % patch 10/16/2020 Act davina metoprolol succinate XL (Toprol-XL) 25 MG 24 hr tablet 25 mg 1 (one) time each day. 09/26/2020 Active nicotine (Nicoderm CQ) 21 MG/24HR patchIndications :Tobacco abuse Place 1 patch on the skin 1 (one) time each day at the same time. 30 patch 05/11/2021 Active lisinopril 10 MG tablet Take 10 mg by mouth 1 (one) time each day. 11/15/2021 Active Family History Medical History Relation Name Comments Lung cancer Father FH: lung cancer Colon cancer Sister FH: colon cance r Relation Name Status Comments Father Sister Social History Tobacco Use Types Packs/Day Years Used Date Smoking Tobacco: Every Day Cigarettes 2 43.7 Started: 1981 Smokeless Tobacco: Never Tobacco Cessation:Ready to Q uit: No; Counseling Given: No Comments:01/24/2023 - currently pt is smoking 1/3 ppd. Alcohol Use Standard Drinks/Week Comments Yes 0 (1 standard drink = 0.6 oz pur e alcohol) PHQ-2 Answer Date Recorded Patient Health Questionnaire-2 Score 2 01/04/2022 Comments Unknown Sex and Gender Information Value Date Recorded Sex Assigned at Female 05/08/2021 4:01 PM EST Legal Sex Female 8:39 PM EDT Gender Identity Female 05/08/2021 4:01 PM EST Sexual Orientation Straight 05/08/2021 4: 01 PM EST Last Filed Vital Signs Vital Sign Reading Time Taken Comments Blood Pressure 118/75 01/04/2022 8:25 AM EDT Pulse 76 01/04/2022 8:25 AM EDT Temperature 36.8 C (98.2 F) 01/04/2022 8:25 AM EDT Respiratory Rate 18 01/04/2022 8:25 AM EDT Oxygen Saturation 99% 01/04/2022 8:25 AM EDT Inhaled Oxygen Concentration - - Weight 68.5 kg (151 lb 0.2 oz) 01/04/2022 8:25 A M EDT Height 169.9 cm (5' 6.9 ) 01/04/2022 8:25 AM EDT Body Mass Index 23.72 01/04/2022 8:25 AM EDT Plan of Treatment Health Maintenance Due Date Last Done Comments [facility]-HIV Screening 1967 [facility]-Hepatitis C Screening 1967 [facility]-Infant/Child/Adol SDOH Screenings 1967 [facility]- SDOH Screenings 1985 [facility]-Adult SDOH Screenings 1985 [facility]-DTaP,Tdap,and Td Vaccines (1 - Tdap) 1986 [facility]-Hepatitis B Vaccines (1 of 3 - 19+ 3-dose series) 1986 CT Colonography 01/31/2012 Colonoscopy 01/31/2012 FIT-DNA 01/31/2012 FIT 01/31/2012 FOBT 01/31/2012 Sigmoidoscopy 01/31/2012 [facility]-Colorectal Cancer Screening 01/31/2012 [facility]-Breast Cancer Screening 2017 [facility]-Pneumococcal Vaccine: 50+ Years (1 of 1 - PCV) 2017 [facility]-Zoster Vaccines (1 of 2) 2017 [id number] Vaccine (3 - Mixed Product risk series) 03/14/2022 02/14/2022, 05/09/2021 [facility]-Depression Screening 01/04/2023 01/04/2022 [facility]-Influenza Vaccine (#1) 2025 02/14/2022 [facility]-Lung Cancer Screening Discontinued 2022, 01/04/2022, 05/11/2021, Additional history exists HPV Vaccines Aged Out No longer eligi ble based on patient's age to complete this topic [facility]-HIB Vaccines Aged Out No longer e ligible based on patient's age to complete this topic [facility]-Hepatitis A Vaccines Aged Out No longer eligible based on patient's age to complete this topic [facility]-IPV Vaccines Aged Out No longer e ligible based on patient's age to complete this topic [facility]-Rotavirus Vaccines Aged Out No lo nger eligible based on patient's age to complete this topic Procedures Procedure Name Priority Date/Time Associated Diagnosis Comments CT CHEST LUNG CANCER SCREENING Routine 02/14/2023 3:59 PM EDT Tobacco abuse from Last 3 Months or Most Recently Relevant to Health Maintenance Results * CT Chest Lung Cancer Screening (02/14/2023 3:59 PM EDT) Anatomical Region Laterality Modality Chest Computed Tomogra phy Impressions 02/14/2023 4:49 PM EDT Negative screening examination. Recommendations: LungRADS 2: Benign appearance or behavior - CT Chest Lung Cancer Screening recommended in 12 months. Modifier: None CRITICAL RESULT: No. COMMUNICATION: Per this written report. Drafted by Malia Salvador MD on 02/14/2023 4:33 PM Final report signed by Malia Salvador MD on 02/14/2023 4:49 PM Narrative 02/14/2023 4:49 PM EDT CLINICAL INDICATION: Lung cancer screening, >= 20 pk-yr smoking history, risk factor(s) (Age >= 50y) TECHNIQUE: Multiple CT helical images were obtained from thoracic inlet through upper abdomen without contrast. A low radiation dose protocol was utilized. Total DLP (Dose-Length Product): 25.30 mGy.cm. Please note: The reported value represents the total of one or more individual components during the CT acquisition on this date and at this time, and as such, the same value may appear in more than one CT report depending on the interpreting/reporting physicians. COMPARISON: January 04, 2022 FINDINGS: Mediastinum and Pleura: No adenopathy. Coronary Calcium: No. Lungs: Stable bilateral upper lobe predominant lung nodules including right apical nodule on image 19 of series 2 measuring up to 1.7 cm. No new suspicious lung nodules are appreciated. Upper Abdomen: No suspicious lesion in the partially visualized upper abdomen. Please note that the low dose technique utilized for this examination is optimized for pulmonary nodule evaluation and has limited sensitivity for detection of abdominal abnormalities. Musculoskeletal: Mild degenerative changes of the spine. No aggressive osseous lesions. Procedure Note Malia Salvador MD - 02/14/2023 CLINICAL INDICATION: Lung cancer screening, >= 20 pk-yr smoking history, risk factor(s) (Age >=50y) TECHNIQUE: Multiple CT helical images were obtained from thoracic inlet through upperabdomen without contrast. A low radiation dose protocol was utilized. Total DLP (Dose-Length Product): 25.30 mGy.cm. Please note: The reportedvalue represents the total of one or more individual components during theCT acquisition on this date and at this time, and as such, the same valuemay appear in more than one CT report depending on theinterpreting/reporting physicians. COMPARISON: January 04, 2022 FINDINGS: Mediastinum and Pleura: No adenopathy. Coronary Calcium: No. Lungs: Stable bilateral upper lobe predominant lung nodules includingright apical nodule on image 19 of series 2 measuring up to 1.7 cm. No newsuspicious lung nodules are appreciated. Upper Abdomen: No suspicious lesion in the partially visualized upperabdomen. Please note that the low dose technique utilized for thisexamination is optimized for pulmonary nodule evaluation and has limitedsensitivity for detection of abdominal abnormalities. Musculoskeletal: Mild degenerative changes of the spine. No aggressiveosseous lesions. IMPRESSION: Negative screening examination. Recommendations: LungRADS 2: Benign appearance or behavior - CT Chest Lung Cancer Screeningrecommended in 12 months. Modifier: None CRITICAL RESULT: No. COMMUNICATION: Per this written report. Drafted by Malia Salvador MD on 02/14/2023 4:33 PM Final report signed by Malia Salvador MD on 02/14/2023 4:49 PM Jhon Calderon MD IMG CT PROCEDURES Final Result from Last 3 Months or Most Recently Relevant to Health Maintenance Insurance [employer] [facility] MEDICAID [facility] Care Teams Product Designer Relationship Specialty Start Date End Date Ronni Chan MD [address] [place] [address] [address] [place] [address] PCP - General 02/14/23
== END 2025-02-04 23:59 | disposition home or self-care (01) ==
LOC: LAB.DROPOF 02-05 12:16
PROVIDERS: PCP Obstetrics & Gynecology; Visit Provider Obstetrics & Gynecology
DX: R82.90 Unspecified abnormal findings in urine (principal)
CPT/HCPCS: 87086

== ENCOUNTER 2025-02-15 11:40 | Outpatient (CLI) | payer BC, SELFPAY ==
--- OUTSIDE RECORDS SUMMARY | 2025-02-15 11:44 | XMS_ITS | Clinical Summary ---
Author Organization [facility] Address [address] [place] [address] Care Team Providers Care Armament Installer Name Role Phone Ronni Chan MD Primary Care Provider [phone] Allergies No known active allergies Medications ProAir [...] each day. 10/30/2020 Active ergocalciferol 1.25 MG (29443 UT) capsule Twice weekly 09/26/2020 Active diazePAM [...] 2017 [facility]-Zoster Vaccines (1 of 2) 2017 [id number] Vaccine (3 - Mixed Product risk series) [...] Recently Relevant to Health Maintenance Insurance [facility]ETNA [facility] MEDICAID [facility] Care Teams Armament Installer Relationship Specialty Start Date End Date Ronni Chan MD [address] [place] [address] [address] [place] [address] PCP - General 02/14/23
--- OUTSIDE RECORDS SUMMARY | 2025-02-15 11:44 | XMS_ITS | Data Portability ---
Author Organization KRYSTLE MAXIM Vazquez [facility] CLOSED Address [address] [facility] [address] [place] [address] Care Team Providers Care Roll Hand Name Role Phone SHILO SWIFT Crude Oil Driver STORM POWELL Primary Care Provider Assessment Encounter [...] Organization Details Last Modified Time Details Appointments FOLLOW UP [facility] 2025 03:30P Chen HARMAN MD Not available Not available Not available Lab magnesiu m, QN, serum or plasma 2023 024 [facility], [address] [place] [address], [phone], 02/14/2024 09:35:11 protein electrop horesis panel, serum or plasma 2023 024 [facility], [address] [place] [address], [address], 02/19/2024 05:20:37 immunofi xation, serum 2023 024 [email or web address] [facility], [address] [place] [address], [address], 02/21/2024 08:58:28 Referral pulmonol ogist referral 2023 024 [email or web address] Valeria Gaston MD, [address] [place] [address], [address], 03/13/2024 08:09:44 hematolo gist referral - Easy bruising ; hx smoking 2023 024 [email or web address] Bob Chowdhury MD, [address] [place] [address], [address] [place] [address], [address], 03/13/2024 08:09:43 Procedures home sleep testing (PROC) 2024 025 [email or web address] Not available 06/05/2024 11:34:24 home sleep testing (PROC) 2023 024 [email or web address] Not available 03/04/2024 09:06:44 Surgeries None recorded . Imaging CT, chest, w/o contrast 2024 025 [email or web address] [facility] Pulmonary, [address] [place] [address], [address], 12/02/2024 14:12:19 PET-CT, skull base to mid-thig h scan 2024 025 [facility] Pulmonary, [address] [place] [address], [place], [address], 06/05/2024 09:47:34 LDCT, chest, for lung cancer screenin g - The provider 's office will call and schedule test with Radiolog y Dept and then the patient will be contacte d with details. 2023 [facility], [address] [place] [address], [phone], 05/18/2024 09:07:43 Medication Orders Symbicor t 160 mcg-4.5 mcg/actu ation HFA aerosol inhaler 2023 [facility], [address] [place] [address], [facility] [address], [address], 03/04/2024 08:45:53 Patient TargetsNo targets recorded. Patient Instructions Encounter Date Encounter Id Patient Instructions Last Modified By Organization Details Last Modified Time 03/04/2024 [id number] [facility] [email or web address] Not available 03/04/2024 [...] cessation. [email or web address] Not available 03/04/2024 09:43:23 05/21/2024 [id number] [facility] [email or web address] Not available 05/21/2024 08:32:05 I have reviewed the images of the CT scan of the chest with her indicating evolution since 2020 we will proceed with a PET CT scan YEHUDA and I will review with her shortly afterwards [email or web address] Not available 05/21/2024 08:50:34 06/05/2024 [id number] [facility] [email or web address] Not available 06/05/2024 11:23:43 She is doing fairly well she will have a CT scan in [address] today was negative with no increased avidity We Will order a sleep study. 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 6 low Not Available [facility] [address] [place] [address], [address], 02/14/2024 09:35:11 02/14/20 24 02/19/2024 PROTE IN ELECT [facility] RESIS , SERUM protein, total 6.1 g/dL 6.1-8. 1 normal Not Available [facility] [address] [place], [address], 02/20/2024 10:34:56 02/14/20 24 02/20/2024 PROTE IN [facility] RESIS , SERUM albumin 3.5 g/dL 3.8-4. 8 low Not Available [facility] [address] [place], [address], 02/20/2024 10:34:56 02/14/20 24 02/20/2024 [facility] , SERUM swcsg-8-xyoz ulin 0.3 g/dL 0.2-0. 3 normal Not Available [facility] [address] [place], [address], 02/20/2024 10:34:56 02/14/20 24 02/20/2024 PROTE IN ELECT [facility] RESIS , SERUM ozokg-6-jdix ulin 0.8 g/dL 0.5-0. 9 normal Not Available [facility] [address] [place], [address], 02/20/2024 10:34:56 02/14/20 24 02/20/2024 PROTE IN [facility] RESIS , SERUM beta 1 globulin 0.4 g/dL 0.4-0. 6 normal Not Available [facility] [address] [place], [address], 02/20/2024 10:34:56 02/14/20 24 02/20/2024 PROTE IN [facility] RESIS , SERUM beta 2 globulin 0.4 g/dL 0.2-0. 5 normal Not Available [facility] [address] [place], [address], 02/20/2024 10:34:56 02/14/20 24 02/20/2024 PROTE IN [facility] RESIS , SERUM gamma globulin 0.7 g/dL 0.8-1. 7 low Not Available [facility] [address] [place], [address], 02/20/2024 10:34:56 02/14/20 24 02/20/2024 PROTE IN [facility] RESIS , SERUM interpretati on SEE NOTE normal Hypog ammag lobul inemi a may be seen in early or evolv ing lymph oprol ifera tive disor ders, acqui red or conge nital immun e defic ienci es, immun osupp ressi ve thera py and light chain disea se. Consi danny urine prote in [facility] resis , urine immun ofixa tion and/o r free light chain s if clini lex indic ated. Not Available [facility] [address] [place], [address], 02/20/2024 10:34:56 02/14/20 24 02/24/2024 IMMUN OFIXA TION, SERUM interpretati on SEE NOTE normal Yola l jeanine rn. No monoc lonal prote ins detec quinton. Not Available [facility] [address] [place], [address], 02/24/2024 14:27:40 03/04/2003/04/2024 lung cance r scree jatin eligi bilit y asses sment * Age 50-80 YES Not Available [facility] [address] [address], [place], [address], 03/04/2024 08:45:18 03/04/2003/04/2024 lung cance r scree jatin eligi bilit y asses sment * Age 50-77 Traditional Medicare YES Not Available [facility] [address] [address], [place], [address], 03/04/2024 08:45:18 03/04/2003/04/2024 lung cance r scree jatin eligi bilit y asses sment * Either current smoker or has quit in last 15 years YES Not Available [facility] [address] [place] [address], [place], [address], 03/04/2024 08:45:18 03/04/2003/04/2024 lung cance r scree jatin eligi bilit y asses sment * Average of one pack a day for 20 years (20 pack years) YES Not Available [facility] [address] [address], [place], [address], 03/04/2024 08:45:18 03/04/2003/04/2024 lung cance r scree jatin eligi bilit y asses sment * Displays signs or symptoms of lung cancer NO Not Available [facility] Pulmonary [address], [address], 03/04/2024 08:45:18 03/04/2003/04/2024 lung cance r scree jatin eligi bilit y asses sment * Shared decision making with patient, Risks and benefits of CT Lung screen discussed YES Not Available [facility]monary [address] [address], [place], [address], 03/04/2024 08:45:18 03/04/20 24 03/04/2024 lung cance r joaquine jatin murray bilit y asses sment * Smoking cessation counseling provided YES Not Available [facility] Pulmonary [address] [place] [address], [place], [address], 03/04/2024 08:45:18 03/04/20 24 03/04/2024 lung cance r joaquine jatin eligi bilit y asses sment * Order provided for LDCT YES Not Available [facility] Pulmonary [address] [place] [address], [place], [address], 03/04/2024 08:45:18 05/18/20 24 05/18/2024 LDCT, chest , for lung cance r vandana steiner [address] [address] Mark giron Name: DANIELA giron : [address] 86 Orderi ng Provid er: [facility] EXAM DATE: 2023 EXAM: CT CHEST LUNG [...] and their major branch es and tribut shaggy are normal in calibe r. Cardia c [...] limita tions impose d by the scanni ronald techni que, no other signif icant abnorm ality was identi fied. FOR CANVAS BASTER JUMPBASTING AL STATIS TICAL PURPOS E ONLY: Exam Type: Screen ing. Change : N/A. Lung-R ADS Catego ry: Lung-R ADS catego ry 4A Lung-R ADS Modifi er: None Recall Interv al: Immedi ate furthe r evalua tion. Recomm ended Exam at Recall : PET CT Interp reted By: Alen Cleaning MD Electr onical ly Signed By: Alen Cleaning MD on 2023 9:02 AM [email or web address] [facility] Radiology [address], [place], [address], 05/21/2024 08:20:53 06/05/19 25 06/05/2024 PET-C T, skull base to mid-t high scan [address] [address] Norimarcio giron Name: DANIELA giron : [address] g[address] 84 Orderi ng Provid er: AYORIN DE MEDAIY ARMINDA EXAM DATE: 2024 EXAM: PET-CT TUMOR SKULL BASE-M ID THIGH INT ST CLINIC AL INFORM ATION: Lung Nodule Evalua tion PROCED URE: Baseli ne blood glucos e level was 94 mg/dL. 13.7 mCi F-18 FDG ([facility] [address]3 0) was inject ed IV. After [...] Alen Cleaning MD on 025 9:42 AM [email or web address] [facility]iology [facility] [address] [place], [address], 06/05/2024 11:20:45 06/30/19 25 06/23/2024 home sleep testi ng (PROC ) No observ ation record ed. [email or web address] Not Available 12/03 08:26:37 Result Notes Documentation Provider Name and Address Organization Details Recorded Time Ldct, Chest, For Lung Cancer Screening : [place] [address] Patient Name: DANIELA MENDOZA Patient : 1965 Patient Ordering Provider: VALERIA GASTON EXAM DATE: 05/18/2024 EXAM: CT CHEST LUNG NODULE SCREENING CLINICAL INFORMATION: Lung cancer screening. History of smoking for 20 pack years. Patient is a current smoker. TECHNIQUE: Multiple axial CT images of the chest were obtained without injection of IV contrast using the low-dose lung cancer screening protocol. COMPARISON: None. NODULE SEARCH: 1. 13 mm nodule in the right apex, reference image #58 of series 201 2. 5 mm nodule in the right upper lobe, reference image #107 and series 201 3. Millimeter nodule in the left upper lobe, reference image #69 of series 202 OTHER FINDINGS: AIRWAYS AND LUNGS: Trachea, principal bronchi and major bronchial branches are patent and normal. Lungs are clear. MEDIASTINUM: Limited evaluation due to absence of IV contrast. Aorta, SVC, pulmonary arteries, pulmonary veins and their major branches and tributaries are normal in caliber. Cardiac size is normal. PLEURA AND CHEST WALL: No pleural effusion or mass. No chest wall abnormality. UPPER ABDOMINAL ORGANS: Liver, gallbladder, spleen, pancreas, adrenals and upper visualized portions of both kidneys are normal within the limits on interpretation imposed by the absence of IV contrast. IMPRESSION: 1. Bilateral indeterminate nodules. Recommend PET/CT 2. Allowing for the limitations imposed by the scanning technique, no other significant abnormality was identified. FOR INTERNAL STATISTICAL PURPOSE ONLY: Exam Type: Screening. Change: N/A. Lung-RADS Category: Lung-RADS category 4A Lung-RADS Modifier: None Recall Interval: Immediate further evaluation. Recommended Exam at Recall: PET CT Interpreted By: Alen Cleaning MD RIA GASTON MD [address] [place] [address], [address], [facility] 05/21/2024 08:20:53 Pet-ct, Skull Base To Mid-thigh Scan : [address] [place] [address] Patient Name: DANIELA MENDOZA Patient : 1965 Patient Ordering Provider: VALERIA GASTON EXAM DATE: 06/05/2024 EXAM: PET-CT TUMOR SKULL BASE-MID THIGH INT ST CLINICAL INFORMATION: Lung Nodule Evaluation PROCEDURE: Baseline blood glucose level was 94 mg/dL. 13.7 mCi F-18 FDG ([facility] [address]-97) was injected IV. After an uptake time of 57 minutes, skull base to midthigh PET imaging was performed. This was followed by a low dose attenuation correction/anatomic localization CT from lower cranium through the midthigh levels without IV or oral contrast. The patient did not require sedation for this exam. Comparison: Chest CT 05/18/2024 FINDINGS ON PET WITH CT CORRELATION: HEAD AND NECK: No abnormal areas of F-18 FDG uptake are seen. UPPER LIMBS: No abnormal areas of F-18 FDG uptake are seen. CHEST: Normal uptake of F-18 FDG is noted in the myocardium. Bilateral lung nodules are again noted. The largest nodules in the right apex. There is no significant hypermetabolism detected. No mediastinal or hilar adenopathy is present. ABDOMEN: Normal uptake of F-18 FDG is noted in the liver, spleen, bowel and kidneys along with excretion into the ureters. No abnormal areas of F-18 FDG uptake are seen. Solid organs of the upper abdomen show no significant abnormalities. No adenopathy PELVIS: Normal excretory collection of F-18 FDG is noted in the urinary bladder. No abnormal areas of F-18 FDG uptake are seen. No adenopathy LOWER LIMBS: No abnormal areas of F-18 FDG uptake are seen. IMPRESSION: No significant hypermetabolic findings. Nodules in the lung leung do not demonstrate increased metabolism. Suggest follow-up repeat screening chest CT in 6 months Interpreted By: Alen Cleaning MD RIA GASTON MD [address] [place] [address], [address], [facility] 06/05/2024 11:20:45 Problems Name Problem SNOMED Code Status Onset Date Resolution Date Notes Provider Name and Address Organization Details Recorded Time Chronic obstructive pulmonary disease 52469920 Active 2023 VALERIA GASTON MD [address] [place], [address], [facility] 4 08:44:33 Nicotine dependence 15692770 [place] 2023 [place] [address] [place] [address], [address], [facility] 08:45:15 Excessive day and night-time sleepiness 696844300 Active 2023 [place] [address] [place] [address], [address], [facility] 09:00:46 Nodule of lung 157023050 Active 2024 [place] [address] [place] [address], [address], [facility] 08:31:49 Problem Notes None recorded. Procedures Surgical History Date Name Laterality Status Provider Name and Address Organization Details Recorded Time 03/04/20 24 Spirometry completed Suha Carrero [facility] 03/04/2024 08:57:26 03/04/20 24 Spirometry - Pulmonary completed VALERIA GASTON MD [address] [place] [address], [address], [facility] 03/04/2024 09:37:27 hysterectomy completed SHILO SWIFT MD [address] [place] [address], [address], [facility] 02/14/2024 08:07:25 tonsillectomy completed SHILO SWIFT MD [address] [place] [address], [address], [facility] 02/14/2024 08:07:30 Imaging Results None recorded. Procedure [...] Available Not Available Vitals Date Recorded Body height Body mass index (BMI) Body weight Oxygen saturation Oxygen saturation in Arterial blood by Pulse oximetry Heart rate Systolic And Diastolic Provider Name and Address Organization Details Last Updated DateTime 5 170.18 cm 25.1 kg/m2 98801.8 8 g 98 % 98 % 78 /min 120/70 mm[Hg] Mona Kim [facility] 5 08:06:10 Date Recorded Body height Body mass index (BMI) Body weight Heart rate Oxygen saturation Oxygen saturation in Arterial blood by Pulse oximetry Systolic And Diastolic Provider Name and Address Organization Details Last Updated DateTime 5 170.18 cm 24.6 kg/m2 00959 g 80 /min 98 % 98 % 122/72 mm[Hg] Cherelle Miller [facility] 5 11:15:25 Date Recorded Body weight Respiratory rate Heart rate Oxygen saturation Oxygen saturation in Arterial blood by Pulse oximetry Systolic And Diastolic Provider Name and Address Organization Details Last Updated DateTime 4 52628.6 6 g 16 /min 78 /min 99 % 99 % 112/78 mm[Hg] Albertina Rivas [facility] 4 08:03:14 Date Recorded Body weight Heart rate Oxygen saturation Oxygen saturation in Arterial blood by Pulse oximetry Systolic And Diastolic Provider Name and Address Organization Details Last Updated DateTime 4 38471.7 g 76 /min 98 % 98 % 118/68 mm[Hg] Cherelle Miller [facility] 4 08:21:38 Date Recorded Body mass index (BMI) Body height Provider Name and Address Organization Details Last Updated DateTime 03/04/2024 26.6 kg/m2 170.18 cm Suha Carrero [facility] 03/04/2024 08:53:39 Social History Question Answer Notes LastModified by [employer] Details LastModified Time Tobacco Smoking Status Current Every Day [facility] 02/14/2024 08:01:42 What Was The Date Of Your Most Recent Tobacco Screening? 02/14/2024 [email or web address] Information not available 02/14/2024 How Much Tobacco Do You Smoke? 1 PPW [email or web address] Information not available 03/04/2024 Sex: Female Functional Status Question Answer Note LastModified by [employer] Details LastModified Time Do you use any illicit or recreational drugs? No [email or web address] Information not available 03/04/2024 What is your level of alcohol consumption? Occasional [id number] Information not available 02/14/2024 Mental Status None recorded. Family History Relationship [...] Obstructive Pulmonary Disease N Blood Transfusion N Hospitalizations N Emphysema N Black Lung N Alzheimer's N Sarcoidosis N Pneumonia N Anemia N Ulcers N Heart Attack (AR) N Sinusitis N Deep Vein Thrombosis N Diabetes N Bleeding Disorder N Arthritis Y Seizures/Epilepsy N Alpha 1 Antitrypsin Deficiency N Tuberculosis N AIDS/HIV N Congestive Heart Failure (CHF) N Cancer N Stroke N Asthma Y Sleep Apnea Y High Cholesterol N Thyroid Disorder N GERD/Reflux N Hepatitis N Aneurysm N Cirrhosis N Hypertension Y Osteoporosis N Gynecological HistoryNo gynecological history recorded. Obstetrics History GPAL:G 0 P 0 0 0 0 Past Encounters Encounter ID Performer Location Encounter Start Date Encounter Closed Date Diagnosis/Indication Diagnosis SNOMED-CT Code Diagnosis ICD10 Code Diagnosis IMO Codes Diagnosis Note [id number] SHILOBROWN SWIFT MD RHEUMATOL OGY [facility] [address] [address] 02/14/2024 07:48:15 02/15/2024 04:26:33 Generalized osteoarthritis 704306433 M15.9 Spontaneous bruising 161 365635 R23.3 Nodule of lung 283580160 R91.1 [id number] VALERIA GASTON MD PULMONARY [address] [facility] [place] [address] 1 03/04/2024 07:54:52 03/04/2024 10:21:33 Chronic obstructive pulmonary disease 03753123 J44.9 She was told that she has [...] for one Excessive day and night-time sleepiness 588898116 G47.19 She reports excessive daytime drowsiness and nighttime sleepiness she is unable to focus during the day and she feels very tired. She has an Pawnee score of close to 28I will order a home sleep study [id number] VALERIA GASTON MD PULMONARY [address] [facility] [place] [address] 05/21/2024 07:45:31 05/21/2024 08:56:35 Chronic obstructive pulmonary disease 73561876 J44.9 She was told that she has [...] rescue inhaler. Excessive day and night-time sleepiness 883611280 G47.19 She reports excessive daytime drowsiness and nighttime sleepiness she is unable to focus during the day and she feels very tired. She has an Pawnee score of close to 28I will order [...] the nodule discussion . Nodule of lung 457751176 R91.1 She has bilateral pulmonary nodules. The [...] had a CT-guided biopsy.1. She has a [facility] SPN score of about 20% risk of malignancy 2. The nodule appears to have evolved since 2020 with the growth in the dominant right upper lobe nodule3. She clearly has multiple risk factors including her age nodule location size family history and growth of the nodule and also active cigarette smoker.4. We will proceed with a PET CT scan YEHUDA to further evaluate these nodules5. If this is positive I will refer her for a CT-guided biopsy of the dominant nodule I do not think this can be reached by bronchosco py except if she has hilar or mediastina l lymph nodes which I do not see on the CT scan. [id number] VALERIA GASTON MD PULMONARY [address] [facility] [place] [address] 06/05/2024 10:49:27 06/05/2024 12:33:14 Chronic obstructive pulmonary disease 11672059 J44.9 She was told that she has [...] her on smoking cessation. Nodule of lung 846933111 R91.1 She has bilateral pulmonary nodules. The [...] had a CT-guided biopsy.1. She has a [facility] SPN score of about 20% risk of [...] 6 months. Excessive day and night-time sleepiness 128691436 G47.19 She reports excessive daytime drowsiness and nighttime sleepiness she is unable to focus during the day and she feels very tired. She has an Pawnee score of close to 28I will order a home sleep study [id number] ROSIBEL HARMAN MD [address] [address] 08/27/2024 14:01:20 08/27/2024 14:33:27 Multiple benign melanocytic nevi 859348865 D22.5 - Benign lesions seen on exam [...] changing or worrisome lesions Seborrheic keratosis 394 553994 L82.1 - Benign overgrowth s of skin - Hereditary Senile angioma 9429412 I 78.1 - Benign blood vessel growths - Hereditary Solar lentigo 21929736 L 81.4 - Benign brown spots - Sun-induce d Telangiect sonia of skin of face 001811299 I78.1 Benign appearingF up with change or concerns Easy bruising 163875385 R58 Pt prev. on Mobic, receives steroid injections . Both can contribute to easy bruising Porokerato sis of Keegan 57450561 Q82.8 BenignFup with change or concerns Erythema ab elana [id number] 01 L59.0 The nature of the diagnosis was discussed. Pt admits to frequent heating pad use.Discus sed maintainin g a barrier between skin and heating pad, reduce heat.Fup with change or concerns Health Concerns Section Related Observation LastModified by Organization Detai ls LastModified Time None Recorded Concern Status LastModified by Organization Details LastModified Time None Recorded Advance Directives Directive None Recorded Payers Insurance Date Sequence Insurance Name Policy Number Policy Loza Covered Member ID Loza Member ID Guarantor Name 12/06/2024 1 [place] [id number] Daniela Mendoza [id number] Daniela Mendoza Notes Date Note Type Note Provider Name and Address Organization Details Recorded Time 02/14/2024 text/html ROS as noted in the HPI Referred by PCP for evaluation of multiple [...] noticed swelling in hands. Works as a deli clerk.Wrists and elbows are ok.Shoulders can be painful [...] nodules, hx ?atypical mycobacterium. Has not seen metal baler in a few years.She is active smoker.There is family history of malignancy including colon cancer, anal cancer, lung cancer.Denies constitutional symptoms. SHILO SWIFT MD [address] [place] [address], [place], [address], [facility] 02/14/2024 16:55:07 03/04/2024 text/html ROS as noted in the HPI This is a 59-year-old female who was referred to the pulmonary [...] has been stable she denies any hemoptysis [place], [address], [facility] 03/04/2024 09:43:55 05/21/2024 text/html ROS as noted in the HPI She has been doing fairly well over the holiday no recent exacerbations she has not required any antibiotics or steroids She denies any significant cough or wheezing from her baseline. She continues to have excessive daytime drowsiness. She had a CT scan on 05/18/2024 which is reviewed below. She has continued to cut back on her smoking still about 1 pack in a [place], [address], [facility] 05/21/2024 08:51:53 06/05/2024 text/html ROS as noted in the HPI She is doing fairly well she was found to have a nodule in her lung which had increased in size from her previous scan.She had a PET CT scan this morningShe continues to complain of excessive daytime drowsiness and poor sleep. She also has witnessed [place], [address], [facility] 06/05/2024 12:25:49 08/27/2024 text/html ROS as noted in the HPI Spot on noseFSENegative personal hxFamily hx of EA-XmvxdqIc-pijar, last seen 2012 ROSIBEL HARMAN MD [address] [place], [address], [facility] 08/27/2024 14:32:13 OBGyn Episode No OBEpisode recorded.
[2025-02-15 11:50] VITALS: BP 139/61; PULSE 86; RESP 18; O2SAT 100
[2025-02-15] MEDS: 0.9 % SODIUM CHLORIDE 1000ML 2,000 ML 999 ML IV (11:50)
[2025-02-15 13:59] VITALS: BP 122/57; PULSE 71; RESP 18; O2SAT 100
== END 2025-02-15 23:59 | disposition home or self-care (01) ==
PROVIDERS: PCP Family Medicine; Visit Provider Family Medicine
DX: E86.0 Dehydration (principal)
CPT/HCPCS: 96360; 96361; J7030

== ENCOUNTER 2025-02-18 10:08 | Outpatient (CLI) | payer BC, SELFPAY ==
--- OUTSIDE RECORDS SUMMARY | 2025-02-18 10:14 | XMS_ITS | Clinical Summary ---
Author Organization [facility] Address [address] [place] [address] Care Team Providers Care Director Script Name Role Phone Ronni Chan MD Primary Care Provider [phone] Allergies No known active allergies Medications ProAir [...] each day. 10/30/2020 Active ergocalciferol 1.25 MG (83250 UT) capsule Twice weekly 09/26/2020 Active diazePAM [...] Date Smoking Tobacco: Every Day Cigarettes 2 43.8 Started: 1979 Smokeless Tobacco: Never Tobacco Cessation:Ready [...] 2017 UKY-Zoster Vaccines (1 of 2) 2017 [id number] Vaccine (3 - Mixed Product risk series) [...] Recently Relevant to Health Maintenance Insurance [employer] [facility] MEDICAID [place] [address] Care Teams Director Script Relationship Specialty Start Date End Date Ronni Chan MD [address] [place] [address] [address] [place] [address] PCP - General 02/14/23
--- OUTSIDE RECORDS SUMMARY | 2025-02-18 10:14 | XMS_ITS | Data Portability ---
Author Organization [facility] Address [address] [facility] [address] [place] [address] Care Team Providers Care Filler Machine Operator Name Role Phone SHILO SWIFT [employer] Deburrer STORM POWELL Primary Care Provider [phone] Assessment Encounter Date Assessment Date Assessment LastModified [...] Last Modified Time Details Appointments FOLLOW UP [facility] 2025 03:30P Chen HARMAN MD Not available Not available Not available Lab magnesiu m, QN, serum or plasma 2023 024 [facility], [address] [place] [address], [address], 02/14/2024 09:35:11 protein electrop horesis panel, serum or plasma 2023 024 [facility], [address] [place] [address], [address], 02/19/2024 05:20:37 immunofi xation, serum 2023 024 [email or web address] [facility], [address] [place] [address], [address], 02/21/2024 08:58:28 Referral pulmonol ogist referral 2023 024 [email or web address] Valeria Gaston MD, [address] [place] [address], [address], 03/13/2024 08:09:44 hematolo gist referral - Easy bruising ; hx smoking 2023 024 [email or web address] Bob Cohwdhury MD, [address] [place] [address], [address] [place] [address], [address], 03/13/2024 08:09:43 Procedures home sleep testing (PROC) 2024 025 [email or web address] Not available 06/05/2024 11:34:24 home sleep testing (PROC) 2023 024 [email or web address] Not available 03/04/2024 09:06:44 Surgeries None recorded . Imaging CT, chest, w/o contrast 2024 025 [email or web address] [facility] Pulmonary, [address] [place] [address], [address], 12/02/2024 14:12:19 PET-CT, skull base to mid-thig h scan 2024 025 [facility] Pulmonary, [address] [place] [address], [place], [address], 06/05/2024 09:47:34 LDCT, chest, for lung cancer screenin g - The provider 's office will call and schedule test with Radiolog y Dept and then the patient will be contacte d with details. 2023 [facility], [address] [place] [address], [address], 05/18/2024 09:07:43 Medication Orders Symbicor t 160 mcg-4.5 mcg/actu ation HFA aerosol inhaler 2023 [facility], [address] [place] [address], [facility] [place], [address], 03/04/2024 08:45:53 Patient TargetsNo targets recorded. Patient Instructions Encounter Date Encounter Id Patient Instructions Last Modified By Organization Details Last Modified Time 03/04/2024 [id number] [facility] [email or web address] Not available 03/04/2024 [...] cessation. [email or web address] Not available 03/04/2024 09:43:23 05/21/2024 [id number] [facility] [email or web address] Not available 05/21/2024 08:32:05 I have reviewed the images of the CT scan of the chest with her indicating evolution since 2020 we will proceed with a PET CT scan YEHUDA and I will review with her shortly afterwards [email or web address] Not available 05/21/2024 08:50:34 06/05/2024 [id number] [facility] [email or web address] Not available 06/05/2024 11:23:43 She is doing fairly well she will have a CT scan in [address] today was negative with no increased avidity We Will order a sleep study. 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 6 low Not Available [facility] [address] [place] [address], [address], 02/14/2024 09:35:11 02/14/20 24 02/19/2024 PROTE IN ELECT [facility] RESIS , SERUM protein, total 6.1 g/dL 6.1-8. 1 normal Not Available [facility] [address] [place], [address], 02/20/2024 10:34:56 02/14/20 24 02/20/2024 PROTE IN [facility] RESIS , SERUM albumin 3.5 g/dL 3.8-4. 8 low Not Available [facility] [address] [place], [address], 02/20/2024 10:34:56 02/14/20 24 02/20/2024 [facility] , SERUM fffkq-8-azjn ulin 0.3 g/dL 0.2-0. 3 normal Not Available [facility] [address] [place], [address], 02/20/2024 10:34:56 02/14/20 24 02/20/2024 PROTE IN ELECT [facility] RESIS , SERUM tfufh-9-ydhh ulin 0.8 g/dL 0.5-0. 9 normal Not Available [facility] [address] [place], [address], 02/20/2024 10:34:56 02/14/20 24 02/20/2024 PROTE IN [facility] RESIS , SERUM beta 1 globulin 0.4 g/dL 0.4-0. 6 normal Not Available [facility] [address] [place], [address], 02/20/2024 10:34:56 02/14/20 24 02/20/2024 PROTE IN [facility] RESIS , SERUM beta 2 globulin 0.4 g/dL 0.2-0. 5 normal Not Available [facility] [address] [place], [address], 02/20/2024 10:34:56 02/14/20 24 02/20/2024 PROTE IN [facility] RESIS , SERUM gamma globulin 0.7 g/dL 0.8-1. 7 low Not Available [facility] [address] [place], [address], 02/20/2024 10:34:56 02/14/20 24 02/20/2024 PROTE IN [facility] RESIS , SERUM interpretati on SEE NOTE normal Hypog ammag lobul inemi a may be seen in early or evolv ing lymph oprol ifera tive disor ders, acqui red or conge nital immun e defic ienci es, immun osupp ressi ve thera py and light chain disea se. Consi danny urine prote in [facility] resis , urine immun ofixa tion and/o r free light chain s if clini lex indic ated. Not Available [facility] [address] [place], [address], 02/20/2024 10:34:56 02/14/20 24 02/24/2024 IMMUN OFIXA TION, SERUM interpretati on SEE NOTE normal Yola l jeanine rn. No monoc lonal prote ins detec quinton. Not Available [facility] [address] [place], [address], 02/24/2024 14:27:40 03/04/2003/04/2024 lung cance r scree jatin eligi bilit y asses sment * Age 50-80 YES Not Available [facility] [address] [address], [place], [address], 03/04/2024 08:45:18 03/04/2003/04/2024 lung cance r scree jatin eligi bilit y asses sment * Age 50-77 Traditional Medicare YES Not Available [facility] [address] [address], [place], [address], 03/04/2024 08:45:18 03/04/2003/04/2024 lung cance r scree jatin eligi bilit y asses sment * Either current smoker or has quit in last 15 years YES Not Available [facility] [address] [place] [address], [place], [address], 03/04/2024 08:45:18 03/04/2003/04/2024 lung cance r scree jatin eligi bilit y asses sment * Average of one pack a day for 20 years (20 pack years) YES Not Available [facility] [address] [address], [place], [address], 03/04/2024 08:45:18 03/04/2003/04/2024 lung cance r scree jatin eligi bilit y asses sment * Displays signs or symptoms of lung cancer NO Not Available [facility] [address], [address], 03/04/2024 08:45:18 03/04/2003/04/2024 lung cance r scree jatin eligi bilit y asses sment * Shared decision making with patient, Risks and benefits of CT Lung screen discussed YES Not Available [facility] [address] [address], [place], [address], 03/04/2024 08:45:18 03/04/20 24 03/04/2024 lung cance r joaquine jatin murray bilit y asses sment * Smoking cessation counseling provided YES Not Available [facility] [address] [place] [address], [place], [address], 03/04/2024 08:45:18 03/04/20 24 03/04/2024 lung cance r joaquine jatin eligi bilit y asses sment * Order provided for LDCT YES Not Available [facility]monary [address] [place] [address], [place], [address], 03/04/2024 08:45:18 05/18/20 24 05/18/2024 LDCT, chest , for lung cance r vandana steiner [address] [address] Mark giron Name: DANIELA giron : 9[address] Mark giron 84 Orderi ng Provid er: [facility] EXAM DATE: 2023 EXAM: CT CHEST LUNG [...] icant abnorm ality was identi fied. 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 Change : N/A. Lung-R ADS Catego ry: Lung-R ADS catego ry 4A Lung-R ADS Modifi er: None Recall Interv al: Immedi ate furthe r evalua tion. Recomm ended Exam at Recall : PET CT Interp reted By: Alen Cleaning MD Electr onical ly Signed By: Alen Cleaning MD on 2023 9:02 AM [email or web address] [facility] [address], [place], [address], 05/21/2024 08:20:53 06/05/19 25 06/05/2024 PET-C T, skull base to mid-t high scan [address] [address] Norimarcio giron Name: DANIELA giron : 9[address] Mark giron 84 Orderi ng Provid er: AYORIN DE MEDAIY ARMINDA EXAM DATE: 2024 EXAM: PET-CT TUMOR SKULL BASE-M ID THIGH INT ST CLINIC AL INFORM ATION: Lung Nodule Evalua tion PROCED URE: Baseli ne blood glucos e level was 94 mg/dL. 13.7 mCi F-18 FDG ([facility] [id number] [address]11-3 0) was inject ed IV. After [...] Cleaning MD on 025 9:42 AM [email or web address] [facility] [address] [place], [address], 06/05/2024 11:20:45 06/30/19 25 06/23/2024 home sleep testi ng (PROC ) No observ ation record ed. [email or web address] Not Available 12/03 08:26:37 Result Notes Documentation Provider Name and Address Organization Details Recorded Time Ldct, Chest, For Lung Cancer Screening : [place] [address] Patient Name: DANIELA MENDOZA Patient : 1965 [...] By: Alen Cleaning MD RIA GASTON MD [address] [place] [address], [address], [facility] 05/21/2024 08:20:53 Pet-ct, Skull Base To Mid-thigh Scan : [address] [place] [address] Patient Name: DANIELA MENDOZA Patient : 1965 Patient Ordering Provider: VALERIA GASTON EXAM DATE: 06/05/2024 EXAM: PET-CT TUMOR SKULL BASE-MID THIGH INT ST CLINICAL INFORMATION: Lung Nodule Evaluation PROCEDURE: Baseline blood glucose level was 94 mg/dL. 13.7 mCi F-18 FDG ([facility] [id number]) was injected IV. After an uptake time [...] By: Alen Cleaning MD RIA GASTON MD [address] [place] [address], [address], [facility] 06/05/2024 11:20:45 Problems Name Problem SNOMED Code Status Onset Date Resolution Date Notes Provider Name and Address Organization Details Recorded Time Chronic obstructive pulmonary disease 58597600 Active 2023 VALERIA GASTON MD [address] [place], [address], [facility] 4 08:44:33 Nicotine dependence 96884404 [place] 2023 [place] [address] [place] [address], [address], [facility] 08:45:15 Excessive day and night-time sleepiness 097920539 Active 2023 [place] [address] [place] [address], [address], [facility] 09:00:46 Nodule of lung 484482749 Active 2024 [place] [address] [place] [address], [address], [facility] 08:31:49 Problem Notes None recorded. Procedures Surgical History Date Name Laterality Status Provider Name and Address Organization Details Recorded Time 03/04/20 24 Spirometry completed Suha Carrero [facility] 03/04/2024 08:57:26 03/04/20 24 Spirometry - Pulmonary completed VALERIA GASTON MD [address] [place] [address], [address], [facility] 03/04/2024 09:37:27 hysterectomy completed SHILO SWIFT MD [address] [place] [address], [address], [facility] 02/14/2024 08:07:25 tonsillectomy completed SHILO SWIFT MD [address] [place] [address], [address], [facility] 02/14/2024 08:07:30 Imaging Results None recorded. Procedure [...] Updated DateTime 5 170.18 cm 25.1 kg/m2 52966.8 8 g 98 % 98 % 78 /min 120/70 mm[Hg] Mona Kim [facility] 5 08:06:10 Date Recorded Body height Body mass index (BMI) Body weight Heart rate Oxygen saturation Oxygen saturation in Arterial blood by Pulse oximetry Systolic And Diastolic Provider Name and Address Organization Details Last Updated DateTime 5 170.18 cm 24.6 kg/m2 51397 g 80 /min 98 % 98 % 122/72 mm[Hg] Cherelle Miller [facility] 5 11:15:25 Date Recorded Body weight Respiratory rate Heart rate Oxygen saturation Oxygen saturation in Arterial blood by Pulse oximetry Systolic And Diastolic Provider Name and Address Organization Details Last Updated DateTime 4 05721.6 6 g 16 /min 78 /min 99 % 99 % 112/78 mm[Hg] Albertina Rivas [facility] 4 08:03:14 Date Recorded Body weight Heart rate Oxygen saturation Oxygen saturation in Arterial blood by Pulse oximetry Systolic And Diastolic Provider Name and Address Organization Details Last Updated DateTime 4 53872.7 g 76 /min 98 % 98 % 118/68 mm[Hg] Cherelle Miller [facility] 4 08:21:38 Date Recorded Body mass index (BMI) Body height Provider Name and Address Organization Details Last Updated DateTime 03/04/2024 26.6 kg/m2 170.18 cm Suha Carrero [facility] 03/04/2024 08:53:39 Social History Question Answer Notes LastModified by [employer] Details LastModified Time Tobacco Smoking Status Current Every Day [email or web address] 02/14/2024 08:01:42 What Was The Date Of Your Most Recent Tobacco Screening? 02/14/2024 [email or web address] Information not available 02/14/2024 How Much Tobacco Do You Smoke? 1 PPW [email or web address] Information not available 03/04/2024 Sex: Female Functional Status Question Answer Note LastModified by [employer] Details LastModified Time Do you use any illicit or recreational drugs? No [email or web address] Information not available 03/04/2024 What is your level of alcohol consumption? Occasional [email or web address] Information not available 02/14/2024 Mental Status None recorded. Family History Relationship Description Onset Age of this Age Resolved Age Notes LastModified by Organization Details LastModified Time Sister Fibromyalgia Not availab le 02/14/2024 08:06:37 Sister Malignant neoplasm of colon [email or web address] Not available 2023 08:06:54 Sister Malignant neoplasm of anus [email or web address] Not available 2023 08:07:08 Sister Rheumatoid arthritis [email or web address] Not available 2023 08:07:17 Father Malignant neoplasm of lung [email or web address] Not available 2023 08:06:43 Medical History Condition Response Allergies/Hayfever N Atrial Fibrillation Y Chronic Obstructive Pulmonary Disease N Blood Transfusion N Emphysema N Hospitalizations N Black Lung N Alzheimer's N Sarcoidosis N Pneumonia N Anemia N Ulcers N Heart Attack (AL) N Sinusitis N Deep Vein Thrombosis N [...] ICD10 Code Diagnosis IMO Codes Diagnosis Note [id number] SHILOBROWN SWIFT MD RHEUMATOL OGY SB [address] [address] 02/14/2024 07:48:15 02/15/2024 04:26:33 Generalized osteoarthritis 942317590 M15.9 Spontaneous bruising 161 318405 R23.3 Nodule of lung 166721268 R91.1 [id number] VALERIA GASTON MD PULMONARY [address] [facility], [address] [place] [address] 03/04/2024 07:54:52 03/04/2024 10:21:33 Chronic obstructive pulmonary disease 61161743 J44.9 She was told that she has [...] for one Excessive day and night-time sleepiness 910921956 G47.19 She reports excessive daytime drowsiness and nighttime sleepiness she is unable to focus during the day and she feels very tired. She has an [place] score of close to 28I will order a home sleep study [id number] VALERIA GASTON MD PULMONARY [address] [facility] [place] [address] 05/21/2024 07:45:31 05/21/2024 08:56:35 Chronic obstructive pulmonary disease 95810984 J44.9 She was told that she has [...] rescue inhaler. Excessive day and night-time sleepiness 665644108 G47.19 She reports excessive daytime drowsiness and nighttime sleepiness she is unable to focus during the day and she feels very tired. She has an [place] score of close to 28I will order [...] the nodule discussion . Nodule of lung 285360686 R91.1 She has bilateral pulmonary nodules. The [...] had a CT-guided biopsy.1. She has a [facility] SPN score of about 20% risk [...] do not see on the CT scan. [id number] VALERIA GASTON MD PULMONARY [address] [facility] [place] [address] 06/05/2024 10:49:27 06/05/2024 12:33:14 Chronic obstructive pulmonary disease 96221330 J44.9 She was told that she has [...] her on smoking cessation. Nodule of lung 803722875 R91.1 She has bilateral pulmonary nodules. The [...] had a CT-guided biopsy.1. She has a [facility] SPN score of about 20% risk [...] 6 months. Excessive day and night-time sleepiness 682409761 G47.19 She reports excessive daytime drowsiness and nighttime sleepiness she is unable to focus during the day and she feels very tired. She has an [place] score of close to 28I will order a home sleep study [id number] ROSIBEL HARMAN MD [address] [address] 08/27/2024 14:01:20 08/27/2024 14:33:27 Multiple benign melanocytic nevi 715495683 D22.5 - Benign lesions seen on exam [...] changing or worrisome lesions Seborrheic keratosis 394 039468 L82.1 - Benign overgrowth s of skin - Hereditary Senile angioma 6419184 I 78.1 - Benign blood vessel growths - Hereditary Solar lentigo 82821394 L 81.4 - Benign brown spots - Sun-induce d Telangiect sonia of skin of face 267333483 I78.1 Benign appearingF up with change or concerns Easy bruising 899199604 R58 Pt prev. on Mobic, receives steroid injections . Both can contribute to easy bruising Porokerato sis of Keegan 01912271 Q82.8 BenignFup with change or concerns Erythema ab elana 2696834 01 L59.0 The nature of the diagnosis [...] ID Guarantor Name 12/06/2024 1 [employer] [id number] Daniela Mendoza [id number] 28 Daniela Mendoza Notes Date Note Type [...] noticed swelling in hands. Works as a out of town collection clerk.Wrists and elbows are ok.Shoulders can be [...] nodules, hx ?atypical mycobacterium. Has not seen shop hand in a few years.She is active smoker.There is family history of malignancy including colon cancer, anal cancer, lung cancer.Denies constitutional symptoms. SHILO SWIFT MD [address] [place] [address], [place], [address], [facility] 02/14/2024 16:55:07 03/04/2024 text/html ROS as noted [...] denies any hemoptysis MD [place], [address], [facility] 03/04/2024 09:43:55 05/21/2024 text/html ROS as noted [...] 1 pack in a [place], [address], [facility] 05/21/2024 08:51:53 06/05/2024 text/html ROS as noted in the HPI She is doing fairly well she was found to have a nodule in her lung which had increased in size from her previous scan.She had a PET CT scan this morningShe continues to complain of excessive daytime drowsiness and poor sleep. She also has witnessed [place], [address], [facility] 06/05/2024 12:25:49 08/27/2024 text/html ROS as noted in the HPI Spot on noseFSENegative personal hxFamily hx of LT-UiyvxyCm-alsbo, last seen 2012 ROSIBEL HARMAN MD [address] [place], [address], [facility] 08/27/2024 14:32:13 OBGyn Episode No OBEpisode recorded.
[2025-02-18 10:20] VITALS: BP 138/76; PULSE 64; RESP 18; O2SAT 97
[2025-02-18] MEDS: 0.9 % SODIUM CHLORIDE 1000ML 1,000 ML 999 ML IV ×2 (10:20→11:19)
[2025-02-18 12:30] VITALS: BP 130/72; PULSE 64; RESP 18; O2SAT 96
== END 2025-02-18 23:59 | disposition home or self-care (01) ==
PROVIDERS: PCP Family Medicine; Visit Provider Family Medicine
DX: E86.0 Dehydration (principal)
CPT/HCPCS: 96360; 96361; J7030

== ENCOUNTER 2025-04-27 15:42 | Outpatient (CLI) | payer BC, SELFPAY ==
--- NOTE | 2025-04-27 15:46 | XR_ITS ---
FINAL REPORT CLINICAL HISTORY: Evaluation of Left Foot Pain FINDINGS: LEFT FOOT Three views were obtained. There is no fracture or dislocation. There is moderately advanced joint space narrowing at the first metatarsal phalangeal joint. No soft tissue abnormality is identified. IMPRESSION: Moderately advanced degenerative changes of the first metatarsal phalangeal joint. Reviewed, Interpreted and Dictated by Jude Flannery MD Transcribed by Janie Davis Authenticated and [facility]
== END 2025-04-27 23:59 | disposition home or self-care (01) ==
LOC: RAD 15:43
PROVIDERS: PCP Family Medicine; Visit Provider Nurse Practitioner
DX: M19.072 Primary osteoarthritis, left ankle and foot (principal); R60.0 Localized edema
CPT/HCPCS: 73630